=== PATIENT | female | born 1945 | race Caucasian/White ===

== ENCOUNTER 2016-09-19 11:33 | Inpatient (IN) | payer MEDICARE, OTHER ==
[~2016-09-19] VITALS: Ht 157.5 cm; Wt 56.0 kg
[~2016-09-19 11:33] MED LIST: AMIT100T2 PO; ASCO500C7 PO; ASPI1TAB2 PO; CRAN400C PO; DILT240C62 PO; HIPR1 PO; HYDR-3498 PO; LEVO500S PO; METO10TA96 PO; MULT1TAB6 PO; PSYL0.526 PO; RANI150T5 PO
[2016-09-19 11:39] VITALS: Ht 157.5 cm; Wt 56.0 kg
[2016-09-19] MEDS ORDERED: SODIUM CHLORIDE 0.9% 1L BAG IV* STA (11:56)
[2016-09-19] MEDS ORDERED: PIPER-TAZO 3.375 GM IV (PMX) 100 ML IVPB STA (11:56)
[2016-09-19] MEDS ORDERED: VANCOMYCIN 1 GM (PMX) 250 ML IVPB STA (11:56)
[2016-09-19 12:23] LABS: BASOPHIL # 0.2 10^3/ul (0.0-0.1); BASOPHILS % 0.8 % (0.0-2.0); EOSINOPHILS # 0.1 10^3/ul (0.0-0.5); EOSINOPHILS % 0.3 % (0.0-7.0); HEMATOCRIT 37.8 % (37.0-47.0); HEMOGLOBIN 12.4 g/dl (12.0-16.0); LYMPHOCYTES # 1.2 10^3/ul (0.8-2.9); MEAN CORPUSCULAR HEMOGLOBIN 28.7 pg (29.0-33.0); MEAN CORPUSCULAR HGB CONC 32.9 g/dl (32.0-37.0); MEAN CORPUSCULAR VOLUME 87.1 fl (82.0-101.0); MEAN PLATELET VOLUME 7.1 fl (7.4-10.4); MONOCYTE # 0.5 10^3/ul (0.3-0.9); MONOCYTES % 2.6 % (0.0-11.0); NEUTROPHILS % 90.3 % (39.0-77.0); PLATELET COUNT 583 10^3/UL (140-440); RED BLOOD COUNT 4.34 10^6/ul (4.20-5.40); RED CELL DISTRIBUTION WIDTH 14.6 % (11.5-14.5)
--- NOTE | 2016-09-19 12:25 | RADRPT ---
PROCEDURE: XR Chest. CLINICAL INDICATION: Possible sepsis. TECHNIQUE: Single frontal portable chest was obtained. COMPARISON: 11/28/2015.. FINDINGS: Cardiac silhouette is borderline enlarged. There are atherosclerotic calcifications in the thoracic aorta. Pulmonary vasculature appears normal. There is bibasilar subsegmental atelectasis and persistent elevation of the left hemidiaphragm. Costophrenic angles are well defined. The osseous elements appear intact. IMPRESSION: 1. Atherosclerotic calcifications in the thoracic aorta. 2. Bibasilar subsegmental atelectasis with persistent elevation of the left hemidiaphragm. RPTAT: [facility] Physician Rafal Date Time Electronically viewed and signed by Physician Rafal on 09/19/2016 12:25 /
[2016-09-19 12:30] LABS: CONDITION 1; LH ANALYZER COMMENTS 1; SUSPECT 1
[2016-09-19] MEDS ORDERED: ACETAMINOPHEN 325 MG TAB PO PRN (12:30)
[2016-09-19] MEDS ORDERED: ONDANSETRON 4 MG INJ IV PRN ×2 (12:30→16:30)
[2016-09-19 12:32] LABS: ALBUMIN 3.4 g/dl (3.3-4.9); CHLORIDE 99 mmol/L (97-110); INR 1.01; PROTIME 13.3 Sec (12.2-14.2); SODIUM 138 mmol/L (135-144)
[2016-09-19] MEDS ORDERED: ERGO500014 PO (12:32)
[2016-09-19] MEDS ORDERED: LUBI24CA7 PO (12:32)
[2016-09-19] MEDS ORDERED: ASPI-664 PO (12:33)
[2016-09-19 12:34] LABS: CREATININE 0.34 mg/dl (0.44-1.00); PARTIAL THROMBOPLASTIN TIME 37.7 Sec (25.0-35.0)
[2016-09-19] MEDS ORDERED: MAGN400O4 PO (12:34)
[2016-09-19 12:35] LABS: ALANINE AMINOTRANSFERASE 26 IU/L (13-69); ALKALINE PHOSPHATASE 145 IU/L (42-121); ANION GAP 17 (8-16); ASPARTATE AMINO TRANSFERASE 33 IU/L (15-46); BILIRUBIN,INDIRECT 0.1 mg/dl (0-1.1); BILIRUBIN,TOTAL 0.1 mg/dl (0.2-1.3); BLOOD UREA NITROGEN 9 mg/dl (7-20); CALCIUM 8.7 mg/dl (8.4-10.2); CARBON DIOXIDE 25 mmol/L (21-31); GLUCOSE 116 mg/dl (70-220); TOTAL PROTEIN 7.6 g/dl (6.1-8.1)
[2016-09-19] MEDS ORDERED: TUCKS PR (12:36)
[2016-09-19] MEDS ORDERED: HC20CR25 TOP (12:37)
[2016-09-19] MEDS ORDERED: RALO60TA12 PO (12:38)
[2016-09-19] MEDS ORDERED: GABA100C14 PO (12:38)
[2016-09-19] MEDS ORDERED: POTASSIUM CHLORIDE (SR) 20 MEQ TAB PO STA (12:55)
[2016-09-19 12:56] LABS: POTASSIUM 2.5 mmol/L (3.5-5.1); TROPONIN-I < 0.012 ng/ml (0.00-0.12)
[2016-09-19 13:35] LABS: ADD UMIC YES; URINE BILIRUBIN (Dip) NEGATIVE (NEGATIVE); URINE BLOOD (Dip) TRACE (NEGATIVE); URINE COLOR LT. YELLOW (YELLOW); URINE GLUCOSE (Dip) NEGATIVE (NEGATIVE); URINE KETONES (Dip) 40 (NEGATIVE); URINE LEUKOCYTE ESTERASE (Dip) TRACE (NEGATIVE); URINE NITRITE (Dip) NEGATIVE (NEGATIVE); URINE TOTAL PROTEIN (Dip) NEGATIVE (NEGATIVE); URINE UROBILINOGEN (Dip) 0.2 E.U./dL (0.1-1.0)
[2016-09-19 13:50] LABS: BACTERIA,URINE OCCASIONAL; URINE RBCS 0-2 /HPF (0)
--- NOTE | 2016-09-19 14:39 | ERA ---
ER Documentation Chief Complaint Date/Time DATE: 09/19/16 TIME: 14:36 Chief Complaint pressure sore draining more than usual and fever x 2 days HPI Patient is a 71-year-old female with hypertension who presents with fever. She has had fever for the past 2 days at night. It is worse today. She had a runny nose and nausea. She has been dealing with pressure ulcers to the bilateral ischial spines and her lumbar spine for the past 2-3 months and does have a wound VAC in place. The [facility]. She is being seen by Dr. Darling Santos who is her primary doctor and by Dr. Orozco who is a plastic surgeon that takes care of the wounds. ROS All systems reviewed and are negative except as per history of present illness. Medications Home Meds Active Scripts Metoclopramide Hcl* (Metoclopramide Hcl*) 10 Mg Tablet, 10 MG PO TID Y for NAUSEA, #30 TAB Prov:HODA SANTOS MD 12/04/15 Hydrocodone Bit-Acetaminophen* ([place]*) 5-325 Mg Tab, 1 TAB PO Q8 Y for SEVERE PAIN LEVEL 7-10, #40 TAB Prov:HODA SANTOS MD 12/04/15 Reported Medications Gabapentin* (Gabapentin*) 100 Mg Capsule, 100 MG PO QHS, #90 CAP 09/19/16 Raloxifene Hcl* (Evista*) 60 Mg Tablet, 60 MG PO DAILY, TAB 09/19/16 Hydrocortisone* Topical (Hydrocortisone* Topical) 2.5%-20 Gm Cream..g., 1 APPLIC TOP TID, TUB 09/19/16 Witnay Jory* (Tucks* Pads) 40 Pad Pad, 1 PAD MN APPLY Y for PRN, #40 PAD APPLY TO RECTAL AREA NEEDED 09/19/16 Magnesium Hydroxide* (Milk Of Magnesia*) 400 Mg/5 Ml Oral.susp, 15-30 ML PO QHS , ML 09/19/16 Aspirin (Low Dose Aspirin) 81 Mg Tablet.dr, 162 MG PO DAILY, #30 TAB 09/19/16 Ergocalciferol* (Drisdol* (Vitamin D2)) 50,000 Unit Capsule, 76611 UNIT PO Q7D, CAP 09/19/16 Lubiprostone* (Amitiza*) 24 Mcg Capsule, 24 MCG PO BID, #60 CAP 09/19/16 Amitriptyline Hcl* (Amitriptyline Hcl*) 100 Mg Tablet, 100 MG PO QHS, #30 TAB 11/28/15 Diltiazem Hcl* (Cartia XT*) 240 Mg Cap.sr.24h, 240 MG PO DAILY, #30 CAP 11/28/15 Methenamine Hippurate* (Hiprex*) 1 Gm Tab, 1 GM PO BID, TAB 11/28/15 Ranitidine Hcl* (Ranitidine Hcl*) 150 Mg Tablet, 150 MG PO HS, #30 TAB 11/28/15 Ascorbic Acid* (Vitamin C*) 500 Mg Capsule.sa, 500 MG PO DAILY, CAP 11/28/15 Folic Acid/Mv,Fe,Other Min (Centrum Complete Multivit Tab) 1 Each Tablet, 1 EACH PO DAILY, TAB 11/28/15 Lpesgpb-Shaymwubocsss-Iyddohrp* (Excedrin Extra Strength*) 250-250-65 Mg Tablet , 1 TAB PO Q6H Y for PAIN, TAB 11/28/15 Cranberry (Cranberry) 400 Mg Capsule, 400 MG PO DAILY, CAP 11/28/15 Psyllium Husk (Psyllium Fiber) 0.52 G Capsule, 0.52 GM PO DAILY, CAP 11/28/15 Discontinued Scripts Levofloxacin (Levofloxacin) 500 Mg/20 Ml Solution, 500 MG PO DAILY for pneumonia , #7 ML Prov:HODA SANTOS MD 12/04/15 Allergies Allergies: Coded Allergies: No Known Drug Allergies (Verified Allergy, Mild, 09/19/16) PMhx/Soc History of Surgery: Yes (HYSTERECTOMY,BIOPSIES,BLADDER SURGERY) Anesthesia Reaction: No Hx Neurological Disorder: Yes (PARAPLEGIC BLE ) Hx Respiratory Disorders: Yes (ADMITTED WITH PNEUMONIA ) Hx Cardiac Disorders: Yes (HTN,) Hx Psychiatric Problems: No Hx Miscellaneous Medical Probl: No Hx Alcohol Use: No Hx Substance Use: No Hx Tobacco Use: No Smoking Status: Never smoker FmHx Adopted and does not know her family history Physical Exam Vitals Vital Signs Date Time Temp Pulse Resp B/P Pulse Ox O2 Delivery O2 Flow Rate FiO2 09/19/16 11:39 97.8 124 20 124/69 98 Physical Exam Const: Mild distress Head: Atraumatic Eyes: Normal Conjunctiva ENT: Normal External Ears, Nose and Mouth. Neck: Full range of motion..~ No meningismus. Resp: Clear to auscultation bilaterally Cardio: Regular rate and rhythm, no murmurs Abd: Soft, non tender, non distended. Normal bowel sounds Skin: Patient has a wound VAC in place for her pressure ulcers. Back: No midline or flank tenderness Ext: No cyanosis, or edema Neur: Awake and alert Psych: Normal Mood and Affect Result Diagram: 09/19/16 1200 09/19/16 1200 Results 24 hrs Laboratory Tests Test 09/19/16 12:00 09/19/16 13:15 Activated Partial Thromboplast Time 37.7Sec Alanine Aminotransferase (ALT/SGPT) 26IU/L Albumin 3.4g/dl Albumin/Globulin Ratio 0.80 Alkaline Phosphatase 145IU/L Anion Gap 17 Aspartate Amino Transf (AST/SGOT) 33IU/L Basophils # 0.210^3/ul Basophils % 0.8% Blood Morphology Comment Blood Urea Nitrogen 9mg/dl Calcium Level 8.7mg/dl Carbon Dioxide Level 25mmol/L Chloride Level 99mmol/L Creatinine 0.34mg/dl Direct Bilirubin 0.00mg/dl Eosinophils # 0.110^3/ul Eosinophils % 0.3% Globulin 4.20g/dl Glucose Level 116mg/dl Hematocrit 37.8% Hemoglobin 12.4g/dl INR International Normalized Ratio 1.01 Indirect Bilirubin 0.1mg/dl Lactic Acid Level 1.5mmol/L Lymphocytes # 1.210^3/ul Lymphocytes % 6.0% Mean Corpuscular Hemoglobin 28.7pg Mean Corpuscular Hemoglobin Concent 32.9g/dl Mean Corpuscular Volume 87.1fl Mean Platelet Volume 7.1fl Monocytes # 0.510^3/ul Monocytes % 2.6% Neutrophils # 18.010^3/ul Neutrophils % 90.3% Nucleated Red Blood Cells # 0.010^3/ul Nucleated Red Blood Cells % 0.0/100WBC Platelet Count 75250^3/UL Potassium Level 2.5mmol/L Prothrombin Time 13.3Sec Prothrombin Time Ratio 1.0 Red Blood Count 4.3410^6/ul Red Cell Distribution Width 14.6% Sodium Level 138mmol/L Total Bilirubin 0.1mg/dl Total Protein 7.6g/dl Troponin I < 0.012ng/ml White Blood Count 20.010^3/ul Urine Bacteria OCCASIONAL Urine Bilirubin NEGATIVE Urine Clarity CLEAR Urine Color LT. YELLOW Urine Epithelial Cells OCCASIONAL Urine Glucose NEGATIVE% Urine Hemoglobin TRACE Urine Ketones 40 Urine Leukocyte Esterase TRACE Urine Microscopic RBC 0-2/HPF Urine Microscopic WBC 2-5/HPF Urine Nitrite NEGATIVE Urine Specific Inez <=1.005 Urine Total Protein NEGATIVE Urine Urobilinogen 0.2 E.U./dL Urine pH 6.0 Current Medications Medications (Trade) Dose Ordered Sig/Tom Route PRN Reason Start Time Stop Time Status Last Admin Dose Admin Sodium Chloride 1740 ml 1,740 ml BOLUS OVER 2 HOURS STAT IV* 09/19/16 11:56 09/19/16 11:57 DC 09/19/16 12:20 Vancomycin HCl 250 ml @ 125 mls/hr ONCE STAT IVPB 09/19/16 11:56 09/19/16 13:55 DC 09/19/16 13:29 Piperacillin Sod/ Tazobactam Sod (Zosyn 3.375gm/ 100 ml (Pmx)) 100 ml @ 200 mls/hr ONCE STAT IVPB 09/19/16 11:56 09/19/16 12:25 DC 09/19/16 12:19 Ondansetron HCl (Zofran Inj) 4 mg BRIDGE ORDER PRN IV NAUSEA AND/OR VOMITING 09/19/16 12:30 09/20/16 12:29 Acetaminophen (Tylenol Tab) 650 mg ER BRIDGE PRN PO MILD PAIN/FEVER 09/19/16 12:30 09/20/16 12:29 Potassium Chloride (Klor-Con 20) 40 meq ONCE STAT PO 09/19/16 12:55 09/19/16 12:57 DC 09/19/16 13:28 Procedures/MDM EKG read by me: Rate/Rhythm: Sinus tachycardia Intervals: Normal Impression: Sinus tachycardia without evidence of ischemia PROCEDURE: XR Chest. CLINICAL INDICATION: Possible sepsis. TECHNIQUE: Single frontal portable chest was obtained. COMPARISON: 11/28/2015.. FINDINGS: Cardiac silhouette is borderline enlarged. There are atherosclerotic calcifications in the thoracic aorta. Pulmonary vasculature appears normal. There is bibasilar subsegmental atelectasis and persistent elevation of the left hemidiaphragm. Costophrenic angles are well defined. The osseous elements appear intact. IMPRESSION: 1. Atherosclerotic calcifications in the thoracic aorta. 2. Bibasilar subsegmental atelectasis with persistent elevation of the left hemidiaphragm. RPTAT: [facility] Physician Rafal Date Time Electronically viewed and signed by Dwayne Euceda Physician on 09/19/2016 12: 25 Admit MDM: Patient's infectious symptoms have not stabilized and the patient is at risk of rapid decompensation. The patient will be admitted for careful hydration, antibiotic therapy, and infectious source control. Severe Sepsis criteria: Infectious source: Wound infection End organ damage indicated by: No end organ damage at this time Sepsis Management: Time of recognition of sepsis: Upon arrival Within 3 hours of recognition: Blood cultures x 2 before broad-spectrum antibiotics: Yes 30 ml/kg NS bolus Completed Initial lactate 1.5 Repeat lactate pending Time of recognition of septic shock: No septic shock Septic Shock Assessment: Any lactic acid > 4.0 No Persistent hypotension (SBP < 90 or 40 mmHg drop, MAP < 65) despite 30 mL/kg IV fluid bolus No Volume Re-assessment for Septic Shock (post 30 ml/kg bolus): No septic shock at this time Persistent Hypotension Treatment: Comfort care No Central line Not Required Vasopressor started Not required I considered further perfusion assessment with CVP measurement, SCVO2, bedside ultrasound volume assessment, passive leg raise, trial of further fluid bolus. And proceeded with 30 ml/kg fluid bolus of NSS, broad spectrum antibiotics, and admission. Patient has hypokalemia and was given potassium by mouth to replete. Accepting Care Team Current data and ongoing care discussed. Admitting Physician: Dr. Marin who is covering for Dr. Darling Santos Guest Request Runner(s): None Outstanding Data: Culture results and repeat lactic acid Critical Care: Critical care time 35 minutes excluding all billable procedures Emergent fluid management while maintaining close respiratory support. Provision of immediate and broad-spectrum antibiotic therapy. Simultaneous assessment for possible sources in order to direct targeted therapy. Consideration for invasive and chemical support to prevent cardiopulmonary collapse. Departure Diagnosis: Primary Impression: Sepsis Qualified Code: A41.9 - Sepsis, due to unspecified organism Additional Impression: Hypokalemia Condition: Serious JASMYN SHERIDAN MD Sep 19, 2016 14:39
[2016-09-19 14:43] VITALS: BP 123/67; PULSE 95; RESP 18
[2016-09-19] MEDS ORDERED: VANCOMYCIN IV PER PHARMACY XX STA (16:11)
[2016-09-19] MEDS ORDERED: ASA/ACETAMINOPHEN/CAFF TAB PO PRN (16:30)
[2016-09-19] MEDS: ERGOCALCIFEROL 50,000 UNIT CAP PO SCH (16:30)
[2016-09-19] MEDS ORDERED: HYDROCODONE/APAP (5/325) TAB PO PRN (16:30)
[2016-09-19] MEDS ORDERED: METOCLOPRAMIDE 10 MG TAB PO PRN (16:30)
[2016-09-19] MEDS ORDERED: NACL 0.9% 3 ML SYG IV SCH (16:30)
--- NOTE | 2016-09-19 17:29 | CONS ---
DATE OF ADMISSION: 09/19/2016 DATE OF CONSULTATION: 09/19/2016 TYPE OF CONSULTATION: Infectious disease. REASON FOR CONSULTATION: Antibiotic management. HISTORY OF PRESENT ILLNESS: Jessica Rico is an unfortunate 71-year-old female with numerous problems who comes in with draining of wounds and fever for 2 days. Her past problems include: 1. Hypertension. 2. Pressure ulcers to bilateral ischial spines and also lumbar spine for the past 2 to 3 months. S he has a wound VAC in place. She is seen at the [facility] [place] for care. Her other p roblems include: 3. Status post hysterectomy. 4. History of bladder surgery with what looks like an Cristela pouch present. 5. Paraplegia. 6. Pneumonia. On admission, the patient was on Levaquin, given by Dr. David Santos. Her white count was 20,000; H and H of 12.4 and 37.8, platelet count 583,000. BUN and creatinine is 9/0.34, potassium 2.5, whic h is quite low. Alkaline phosphatase was elevated at 145. Her total protein 7.6, albumin 3.4, reve rse AG ratio of 0.8. Chest x-ray shows atherosclerotic calcifications of the aorta and bibasilar dimas bsegmental atelectasis with persistent elevation of the left hemidiaphragm. The patient was started on Zosyn 3.375 grams IV piggyback q.8h. and vancomycin. She received 1 dose of vancomycin. Her BU N and creatinine was 9/0.34, as mentioned. Her urine is negative for nitrite, trace leukocyte nicolas ase, 2 to 5 white cells per high-power field. PAST MEDICAL HISTORY AND OPERATIONS: As outlined. FAMILY HISTORY: Noncontributory. SOCIAL HISTORY: She does not smoke, drink, or abuse drugs. ALLERGIES: NONE TO PENICILLIN, SULFA, OR FOODS. MEDICATIONS: Per chart. REVIEW OF SYSTEMS: As per HPI. PHYSICAL EXAMINATION: GENERAL: The patient is a well-developed, chronically ill-appearing, cachectic female who is alert, responsive, in no acute distress. VITAL SIGNS: Stable. She is afebrile. SKIN: Without generalized rash. She has pressure ulcers on her sacrum and a wound VAC on the left side of the sacrum. HEENT: Within normal limits. NECK: Supple. LYMPH NODES: None palpable. CHEST: Decreased breath sounds at the bases. HEART: Without murmur or gallop. ABDOMEN: Soft, nontender without organosplenomegaly or masses. EXTREMITIES: Without cyanosis, clubbing, or edema. RECTAL AND GENITAL: Deferred. NEUROLOGIC: The patient has functional paraplegia. ANCILLARY LABORATORY DATA: White count of 20,000; H and H of 20.4 and 37.8, as previously mentioned . A chest x-ray showed bibasilar segmental atelectasis and persistent elevation of left hemidiaphra gm. IMPRESSION AND PLAN: The patient has pressure sores, wounds. We would benefit from culturing of th ose wounds, but that can only be done when the wound VAC is changed. Blood cultures are pending. U rine is pending. C. diff is pending. We will continue her on vancomycin and Zosyn. The vancomycin was given once. I am going to order it per pharmacy. Dictated By: ANA LUISA BELTRÁN MD, JD/NICKIE Conf#: [id number] DID#: [id number] CC: GIANNI FRAZIER MD;*End*
[2016-09-19] MEDS ORDERED: VANCOMYCIN IV PER PHARMACY XX SCH (17:30)
[2016-09-19] MEDS: NS + KCL 20 MEQ 1,000 ML IV SCH (17:37)
[2016-09-19] MEDS: PIPER-TAZO 3.375 GM IV (PMX) 100 ML IVPB SCH (17:57)
--- NOTE | 2016-09-19 18:54 | QN ---
Documentation Comment [id number] GIANNI FRAZIER MD Sep 19, 2016 18:54
[2016-09-19 20:00] VITALS: BP 111/62; PULSE 89; RESP 18
--- NOTE | 2016-09-19 20:01 | HP ---
DATE OF ADMISSION: 09/19/2016 HISTORY OF PRESENT ILLNESS: Jessica Rico is a 71-year-old female with history of muscular dystrophy. She has weakness of both upper and lower extremities, has multiple decubitus presented to this hospital with multiple decubitus and is being admitted for further management. PAST MEDICAL HISTORY: Please review the old chart. Briefly, he has a history of status post mechanical fall in the past, history of left hip fracture and status post open reduction internal fixation, history of hypokalemia, history of UTI, history of pneumonia, hypertension, hypothyroidism, muscular dystrophy. ALLERGY HISTORY: NEGATIVE. FAMILY HISTORY: Negative. SOCIAL HISTORY: Negative. MEDICATION HISTORY: Patient at home is on: 1. Tylenol. 2. Aspirin. 3. Amitriptyline. 4. Ascorbic acid. 5. vit . 6. Diltiazem. 7. Ergocalciferol. 8. Folic acid. 9. Gabapentin. 10. Hydrocortisone 11. Amitiza. 12. Milk of magnesia. 13. Hapadex. 14. Avista. 15. Ranitidine. REVIEW OF SYSTEMS HEENT: Unremarkable. RESPIRATORY: Unremarkable. CARDIOVASCULAR: Unremarkable. ABDOMEN: Unremarkable. EXTREMITIES: Muscular dystrophy and also multiple decubitus. GENERAL: Pale-looking female, awake, alert. VITAL SIGNS: Stable, pulse 90, blood pressure 120/67. HEAD: Atraumatic, normocephalic. Pupils equal, reactive to light. NECK: Supple. No JVD. LUNGS: Clear. CARDIOVASCULAR: S1, S2 normal. ABDOMEN: Soft, nontender. Bowel sounds positive. EXTREMITIES: No cyanosis, clubbing, edema. CENTRAL NERVOUS SYSTEM: The patient is awake, alert, moving upper and lower extremities with muscular dystrophy and weakness. SKIN: The patient has multiple decubitus in the right hip area and the sacral area also has a wound VAC noted. LABORATORY DATA: WBC 20.0, hematocrit 37.8, platelet count of 523, potassium 2.5. The patient had chest x-ray, atherosclerotic calcification, bibasilar subsegmental atelectasis. EKG will be reviewed. IMPRESSION: 1. Multiple decubitus. 2. Sepsis. 3. Leukocytosis. 4. Hypokalemia. 5. History of hypertension. PLAN: To continue home medication, wound care, antibiotic. Patient will have the wound care consultation and surgical consultation. Dictated By: GIANNI SNOWDEN/NICKIE Conf#: [id number] DID#: [id number] MTDD
[2016-09-19] MEDS: GABAPENTIN 100 MG CAP PO SCH (20:49)
[2016-09-19] MEDS: HYDROCODONE/APAP (5/325) TAB PO PRN (20:50)
[2016-09-19] MEDS: AMITRIPTYLINE 50 MG TAB PO SCH (20:50)
[2016-09-19] MEDS: LUBIPROSTONE 24 MCG CAP PO SCH (20:51)
[2016-09-19] MEDS: RANITIDINE 150 MG TAB PO SCH (20:51)
[2016-09-19] MEDS: METHENAMINE 1 GM TAB PO SCH (20:52)
[2016-09-19] MEDS: HYDROCORTISONE 2.5% 20 GM CR TOP SCH (20:53)
[2016-09-19] MEDS: ACETAMINOPHEN 325 MG TAB PO PRN (23:17)
[2016-09-19] MEDS: VANCOMYCIN 750 MG in SOD CHLORIDE 0.9% 150 ML IVPB SCH (23:29)
[2016-09-20] MEDS: PIPER-TAZO 3.375 GM IV (PMX) 100 ML IVPB SCH ×3 (02:01→17:45)
[2016-09-20 08:11] VITALS: BP 99/62; PULSE 76; RESP 20
[2016-09-20] MEDS: NS + KCL 20 MEQ 1,000 ML IV SCH (08:51)
[2016-09-20] MEDS ORDERED: INFLUENZA VIRUS VACCINE 0.5 ML (DISPENSING) IM* ONE (09:00)
[2016-09-20] MEDS: ASCORBIC ACID 500 MG TAB PO SCH (09:26)
[2016-09-20] MEDS: METHENAMINE 1 GM TAB PO SCH ×2 (09:26→21:24)
[2016-09-20] MEDS: LUBIPROSTONE 24 MCG CAP PO SCH ×2 (09:26→21:21)
[2016-09-20] MEDS: RALOXIFENE 60 MG TAB PO SCH (09:26)
[2016-09-20] MEDS: DILTIAZEM (CD) 240 MG CAP PO SCH (09:26)
[2016-09-20] MEDS: ASPIRIN (EC) 81 MG TAB PO SCH (09:27)
[2016-09-20] MEDS: ENOXAPARIN 30 MG/0.3 ML SYG SC SCH (09:42)
[2016-09-20] MEDS: HYDROCORTISONE 2.5% 20 GM CR TOP SCH ×3 (09:47→21:26)
[2016-09-20 09:48] VITALS: BP 115/62; PULSE 91
[2016-09-20] MEDS: ACETAMINOPHEN 325 MG TAB PO PRN (13:15)
[2016-09-20] MEDS: VANCOMYCIN 750 MG in SOD CHLORIDE 0.9% 150 ML IVPB SCH (13:15)
--- NOTE | 2016-09-20 13:48 | PN ---
Date/Time of Note Date/Time of Note DATE: 09/20/16 TIME: 13:45 Assessment/Plan VTE Prophylaxis VTE Prophylaxis Intervention: other Lines/Catheters IV Catheter Type (from Nrs): Peripheral IV Urinary Cath still in place: No Assessment/Plan Chief Complaint/Hosp Course IMPRESSION: 1. Multiple decubitus. 2. Sepsis. 3. Leukocytosis. 4. Hypokalemia. 5. History of hypertension. 6 multiple decubitus plan antibiotic wound care Problems: Subjective 24 Hr Interval Summary Respiratory: no complaints Cardiovascular: no complaints Gastrointestinal: no complaints Exam/Review of Systems Vital Signs Vitals Vital Signs Date Time Temp Pulse Resp B/P Pulse Ox O2 Delivery O2 Flow Rate FiO2 09/20/16 09:48 91 115/62 09/20/16 08:11 98.3 20 96 Room Air Intake and Output 09/19/16 09/19/16 09/20/16 15:00 23:00 07:00 Intake Total 100 ml 730 ml Balance 100 ml 730 ml Exam Neck: supple Respiratory: clear to auscultation Cardiovascular: regular rate and rhythm Gastrointestinal: soft Musculoskeletal: nl extremities to inspection Skin: other (decubitus) Results Result Diagram: 09/19/16 1200 09/19/16 1200 Results 24 hrs Laboratory Tests Test 09/19/16 15:45 Lactic Acid Level 0.9 Medications Medications Current Medications Amitriptyline HCl (Elavil) 100 mg QHS PO Last administered on 09/19/16at 20:50 ; Admin Dose 100 MG; Start 09/19/16 at 21:00 Ascorbic Acid (Vitamin C) 500 mg DAILY PO Last administered on 09/20/16at 09:26 ; Admin Dose 500 MG; Start 09/20/16 at 09:00 Aspirin (Halfprin) 162 mg DAILY PO Last administered on 09/20/16at 09:27; Admin Dose 162 MG; Start 09/20/16 at 09:00 Acetaminophen/ Aspirin/Caffeine (Excedrin) 1 tab Q6H PRN PO PAIN; Start at 16:30 Diltiazem HCl (Cardizem Cd) 240 mg DAILY PO Last administered on 09/20/16at 09: 26; Admin Dose 240 MG; Start 09/20/16 at 09:00 Ergocalciferol (Drisdol) 50,000 unit Q7D PO ; Start 09/19/16 at 16:30 Gabapentin (Neurontin) 100 mg QHS PO Last administered on 09/19/16 20:49; Admin Dose 100 MG; Start 09/19/16 at 21:00 Acetaminophen/ Hydrocodone Bitart ([place] (5/325)) 1 tab Q8 PRN PO SEVERE PAIN LEVEL 7-10 Last administered on 09/19/16 20:50; Admin Dose 1 TAB; Start 09/19 at 16:30 Hydrocortisone (Hydrocortisone 2.5% Cr) 1 applic TID TOP Last administered on 09/20/16 13:16; Admin Dose 1 APPLIC; Start 09/19/16 at 21:00 Lubiprostone (Amitiza) 24 mcg BID PO Last administered on 09/20/16 09:26; Admin Dose 24 MCG; Start 09/19/16 at 21:00 Methenamine (Hiprex) 1 gm BID PO Last administered on 09/20/16 09:26; Admin Dose 1 GM; Start 09/19/16 at 21:00 Metoclopramide HCl (Reglan) 10 mg TID PRN PO NAUSEA; Start 09/19/16 at 16:30 Raloxifene HCl (Evista) 60 mg DAILY PO Last administered on 09/20/16 09:26; Admin Dose 60 MG; Start 09/20/16 at 09:00 Ranitidine HCl 150 mg 150 mg HS PO Last administered on 09/19/16at 20:51; Admin Dose 150 MG; Start 09/19/16 at 21:00 Potassium Chloride/Sodium Chloride (NS-KCl 20 Meq) 1,000 ml @ 60 mls/hr [id number] IV Last administered on 09/19/16at 17:37; Admin Dose 60 MLS/HR; Start 09/19/16 at 16:11 Ondansetron HCl (Zofran Inj) 4 mg Q6H PRN IV NAUSEA AND/OR VOMITING; Start at 16:30 Acetaminophen (Tylenol Tab) 650 mg Q6H PRN PO PAIN LEVEL 1-3 OR FEVER Last administered on 09/20/16 13:15; Admin Dose 650 MG; Start 09/19/16 at 16:30 Acetaminophen/ Hydrocodone Bitart (Corning (5/325)) 1 tab Q6H PRN PO MODERATE PAIN LEVEL 4-6; Start 09/19/16 at 16:30 Enoxaparin Sodium 30 mg 30 mg DAILY SC Last administered on 09/20/16at 09:42; Admin Dose 30 MG; Start 09/20/16 at 09:00 Piperacillin Sod/ Tazobactam Sod 100 ml @ 25 mls/hr TID@02,10,18 IVPB Last administered on 09/20/16at 09:46; Admin Dose 25 MLS/HR; Start 09/19/16 at 18:00 Vancomycin HCl/ Sodium Chloride (Vancocin/NS) 150 ml @ 75 mls/hr Q12H IVPB Last administered on 09/20/16at 13:15; Admin Dose 75 MLS/HR; Start 09/20/16 at 00:00 Miscellaneous Information (*Rx Drug Level Order Reminder*) 1 ONCE ONCE XX ; Start 09/20/16 at 23:00; Stop 09/20/16 at 23:01 GIANNI FRAZIER MD Sep 20, 2016 13:48
[2016-09-20 15:13] LABS: BASOPHIL # 0.1 10^3/ul (0.0-0.1); BASOPHILS % 0.7 % (0.0-2.0); EOSINOPHILS # 0.2 10^3/ul (0.0-0.5); EOSINOPHILS % 1.2 % (0.0-7.0); HEMATOCRIT 31.3 % (37.0-47.0); HEMOGLOBIN 10.2 g/dl (12.0-16.0); LYMPHOCYTES % 7.4 % (15.0-51.0); MEAN CORPUSCULAR HEMOGLOBIN 28.3 pg (29.0-33.0); MEAN CORPUSCULAR HGB CONC 32.6 g/dl (32.0-37.0); MEAN CORPUSCULAR VOLUME 86.6 fl (82.0-101.0); MEAN PLATELET VOLUME 6.8 fl (7.4-10.4); MONOCYTE # 0.5 10^3/ul (0.3-0.9); MONOCYTES % 3.6 % (0.0-11.0); NEUTROPHIL # 11.3 10^3/ul (1.6-7.5); NEUTROPHILS % 87.1 % (39.0-77.0); PLATELET COUNT 550 10^3/UL (140-440); RED BLOOD COUNT 3.61 10^6/ul (4.20-5.40); RED CELL DISTRIBUTION WIDTH 14.6 % (11.5-14.5)
[2016-09-20 15:14] LABS: CONDITION 1
[2016-09-20 15:15] LABS: LH ANALYZER COMMENTS 1
[2016-09-20 15:21] LABS: CREATININE 0.33 mg/dl (0.44-1.00)
[2016-09-20 15:22] LABS: CALCIUM 7.5 mg/dl (8.4-10.2)
[2016-09-20 15:26] LABS: POTASSIUM 2.7 mmol/L (3.5-5.1)
[2016-09-20] MEDS ORDERED: POTASSIUM CHLORIDE 250 ML IVPB ONE (17:00)
--- NOTE | 2016-09-20 19:09 | PN ---
DATE: 09/20/2016 INFECTIOUS DISEASE PROGRESS NOTE SUBJECTIVE: No changes overnight. The patient is awake, looks comfortable, no fevers. WBC 13, platelets 550, neutrophils 87.1. BUN 8, creatinine 0.33. MICROBIOLOGY: Blood cultures are negative since admission. Urine culture growing enterococcus spec ies. ANTIMICROBIALS: The patient is on IV 1. Vancomycin. 2. Zosyn. PHYSICAL EXAMINATION: GENERAL: Fragile, elderly woman who is lying comfortably in bed. HEENT: Head atraumatic, normocephalic. Sclerae anicteric. Buccal mucosa dry. NECK: Supple, trachea midline. CHEST: Rise symmetrical. Breath sounds diminished to bases. HEART: S1, S2. ABDOMEN: Soft, bowel tones present. EXTREMITIES: Without cyanosis. SKIN: With multiple unstageable pressure ulcers on her lower back and sacrum. ASSESSMENT: 1. Systemic inflammatory response syndrome with leukocytosis present on admission secondary to #2 a nd #3. 2. Unstageable infected wounds, status post lower back wound debridement with wound VAC application . 3. Urinary tract infection. 4. History of bladder surgery with urostomy. 5. Paraplegia. PLAN: The patient remains clinically stable. White blood cell count tracing down. Continue presen t care. Await final cultures. Local wound care per surgery and nursing staff. Dictated By: PAOLO HEAD MEDIA ANALYST for ANA LUISA NAVARRO/NTS Conf#: [id number] DID#: [id number]
[2016-09-20 20:00] VITALS: BP 151/81; PULSE 105
[2016-09-20] MEDS: RANITIDINE 150 MG TAB PO SCH (21:23)
[2016-09-20] MEDS: AMITRIPTYLINE 50 MG TAB PO SCH (21:23)
[2016-09-20] MEDS: GABAPENTIN 100 MG CAP PO SCH (21:25)
[2016-09-20] MEDS: POTASSIUM CHLORIDE (SR) 10 MEQ TAB PO SCH (21:26)
--- NOTE | 2016-09-20 22:59 | CONS ---
DATE OF ADMISSION: 09/19/2016 DATE OF CONSULTATION: 09/20/2016 TYPE OF CONSULTATION: Surgical CHIEF COMPLAINT: 1. Multiple decubitus ulcers. 2. Paraplegia. HISTORY OF PRESENT ILLNESS: Ms. Jessica Rico is a 71-year-old female with muscular dystrophy who is p ractically paraplegic due to significant weakness of lower extremities, more so than the upper extre mities. She has multiple decubitus ulcers and presents with fevers up to 103 without nausea, vomiti ng, chest pain, or shortness of breath. No dysuria. No cough, no seizure, no blood per mouth or re ctum. No abdominal pain. Her workup identified significant leukocytosis at a white count of 20. She was admitted and surgica l consult is obtained for further evaluation. PAST MEDICAL HISTORY: 1. Muscular dystrophy. 2. Significant weakness of the lower extremities, more than upper extremities. 3. Hypertension. 4. History of pneumonia. 5. Hypothyroidism. 6. Urinary tract infection history. 7. Hyperkalemia. 8. Multiple decubitus ulcers with necrotic tissue. 9. Anemia. 10. Thrombocytosis. 11. Significant hyperkalemia. 12. Sepsis. PAST SURGICAL HISTORY: 1. Left hip fracture status post open reduction internal fixation. 2. Partial hysterectomy. 3. Urinary diversion. MEDICATIONS: As per MAR. ALLERGIES: NONE. SOCIAL HISTORY: No current alcohol, drugs, or tobacco. FAMILY HISTORY: Noncontributory. REVIEW OF SYSTEMS: As per HPI. A 12-point review of system negative unless addressed above. PHYSICAL EXAMINATION: VITAL SIGNS: Temperature is 98.3, pulse 76, blood pressure 99/62, saturating 96% on room air. GENERAL: No acute distress, comfortable, pleasant. HEENT: Pupils equal, reactive. No scleral icterus. Mucous membranes are moist. NECK: Supple, no JVD. PULMONARY: Normal respiratory effort. No wheezing. CARDIAC: S1, S2 present. ABDOMEN: Soft, nontender, no rebound, no guarding. Left lower quadrant urinary fistula. EXTREMITIES: No edema. SKIN: No rashes, no jaundice; however, left and right ischial decubitus ulcerations. Right with ne crotic tissue and abscess. Sacrococcygeal decubitus ulceration with necrotic tissue as well. VASCULAR: Capillary refill is 2 seconds. NEUROLOGIC: Alert, oriented, moves upper extremities grossly; however, unable to move the lower ext remities. LABORATORY AND RADIOGRAPHIC: As per chart and HPI. ASSESSMENT AND PLAN: Ms. Jessica Rico is a 71-year-old female with multiple significant comorbidities . 1. Sepsis, probably secondary to infected right ischial/buttock abscess and decubitus ulceration pl us urinary tract infection. a. IV antibiotics. b. Will need debridement and I and D of right buttock abscess and necrotic wound. c. Off load. d. Local care. e. Nutrition optimization. f. Vitamin C. g. Plastics following. 2. Multiple decubitus ulcerations. a. Continue offloading, optimizing nutrition, vitamin C and local care. b. We will consider colostomy for stool diversion. 3. Muscular dystrophy. Continue medical management, offloading, and nutrition optimization. 4. Hypertension. Continue diet and medication control. 5. Anemia without evidence of acute blood loss. Continue close observation. 6. Significant hypokalemia, please replete. 7. Hypothyroidism. Continue replacing hormone. Thank you very much for consulting me in this patient's case. Dictated By: CAIO FRANCIS/NICKIE Conf#: [id number] DID#: [id number]
--- NOTE | 2016-09-20 23:04 | OPR ---
DATE OF OPERATION: 09/20/2016 PREOPERATIVE DIAGNOSIS: Right buttock necrotic wound with abscess. POSTOPERATIVE DIAGNOSIS: Right buttock/ischial abscess with necrotic skin, subcutaneous tissue and fascia. OPERATION PERFORMED: 1. Excisional debridement of skin, subcutaneous tissue, and fascia of right buttock/ischial decubit us ulceration, 8 x 6 cm. 2. Incision and drainage of right buttock/ischial abscess. SURGEON: Caio Putnam MD PHOTOLETTERING MACHINE OPERATOR: None. ANESTHESIA: None. COMPLICATIONS: None. SPECIMEN: None. ESTIMATED BLOOD LOSS: 10 mL INDICATION: Ms. Jessica Rico is a 71-year-old female with multiple comorbidities with multiple decubi tus ulceration and necrotic and abscessed right buttock/ischial ulceration. After a full discussion of her risks, benefits, and alternatives she is agreeable to proceeding with surgery. DISPOSITION: The patient tolerated procedure well. PROCEDURE NOTE: The patient was placed in lateral decubitus and all pressure points were well padde d. Time out was performed. Using scalpel and scissors, the abscess cavity was entered and pus was drained. Using scissors, the necrotic tissue was excised to healthier edges. Wound was irrigated a nd packed with Kerlix and dry dressing was applied. The patient may need further debridement. Dictated By: CAIO FRANCIS/NICKIE Conf#: [id number] DID#: [id number]
[2016-09-21] MEDS: VANCOMYCIN 1 GM in NS 250 ML IVPB SCH ×2 (00:09→12:10)
[2016-09-21] MEDS: NS + KCL 20 MEQ 1,000 ML IV SCH ×3 (01:31→20:21)
[2016-09-21] MEDS: PIPER-TAZO 3.375 GM IV (PMX) 100 ML IVPB SCH ×3 (02:04→17:39)
[2016-09-21 06:22] LABS: POTASSIUM 3.3 mmol/L (3.5-5.1)
[2016-09-21 06:25] LABS: CREATININE 0.31 mg/dl (0.44-1.00)
[2016-09-21 06:26] LABS: CALCIUM 7.6 mg/dl (8.4-10.2)
[2016-09-21] MEDS: HYDROCODONE/APAP (5/325) TAB PO PRN ×2 (07:32→17:35)
[2016-09-21 08:04] VITALS: BP 95/51; PULSE 85; RESP 18
[2016-09-21] MEDS: DILTIAZEM (CD) 240 MG CAP PO SCH (08:06)
[2016-09-21] MEDS: ASCORBIC ACID 500 MG TAB PO SCH (08:52)
[2016-09-21] MEDS: LUBIPROSTONE 24 MCG CAP PO SCH ×2 (08:52→20:22)
[2016-09-21] MEDS: ASPIRIN (EC) 81 MG TAB PO SCH (08:52)
[2016-09-21] MEDS: POTASSIUM CHLORIDE (SR) 10 MEQ TAB PO SCH ×2 (08:52→17:36)
[2016-09-21] MEDS: RALOXIFENE 60 MG TAB PO SCH (08:52)
[2016-09-21] MEDS: METHENAMINE 1 GM TAB PO SCH ×2 (08:52→17:36)
[2016-09-21] MEDS: HYDROCORTISONE 2.5% 20 GM CR TOP SCH ×3 (08:53→20:23)
[2016-09-21] MEDS: ERGOCALCIFEROL 50,000 UNIT CAP PO SCH (09:00)
[2016-09-21] MEDS: ENOXAPARIN 30 MG/0.3 ML SYG SC SCH (09:36)
--- NOTE | 2016-09-21 12:21 | CONS ---
Date/Time of Note Date/Time of Note DATE: 09/21/16 TIME: 12:20 Consult Date/Type/Reason Admit Date/Time Sep 19, 2016 at 12:20 Initial Consult Date Type of Consultation: ID Subjective no acute changes, looks comfortable, afebrile Objective Vital Signs Date Time Temp Pulse Resp B/P Pulse Ox O2 Delivery O2 Flow Rate FiO2 09/21/16 08:04 99.0 85 18 95/51 92 Room Air Intake and Output 09/20/16 09/20/16 09/21/16 15:00 23:00 07:00 Intake Total 100 ml 1470 ml 710 ml Output Total 500 ml 1600 ml Balance 100 ml 970 ml -890 ml Results/Medications Result Diagram: 09/20/16 1445 09/21/16 0500 Results 24 hrs Laboratory Tests Test 09/20/16 14:45 09/20/16 23:25 09/21/16 05:00 Anion Gap 14 13 Basophils # 0.1 Basophils % 0.7 Blood Morphology Comment Blood Urea Nitrogen 8 8 Calcium Level 7.5 L 7.6 L Carbon Dioxide Level 23 22 Chloride Level 105 108 Creatinine 0.33 L 0.31 L Eosinophils # 0.2 Eosinophils % 1.2 Glucose Level 89 94 Hematocrit 31.3 L Hemoglobin 10.2 L Lymphocytes # 1.0 Lymphocytes % 7.4 L Mean Corpuscular Hemoglobin 28.3 L Mean Corpuscular Hemoglobin Concent 32.6 Mean Corpuscular Volume 86.6 Mean Platelet Volume 6.8 L Monocytes # 0.5 Monocytes % 3.6 Neutrophils # 11.3 H Neutrophils % 87.1 H Nucleated Red Blood Cells # 0.0 Nucleated Red Blood Cells % 0.0 Platelet Count 550 H Potassium Level 2.7 *L 3.3 L Red Blood Count 3.61 L Red Cell Distribution Width 14.6 H Sodium Level 139 140 White Blood Count 13.0 #H Vancomycin Level Trough 8.2 L Medications Current Medications Amitriptyline HCl (Elavil) 100 mg QHS PO Last administered on 09/20/16at 21:23 ; Admin Dose 100 MG; Start 09/19/16 at 21:00 Ascorbic Acid (Vitamin C) 500 mg DAILY PO Last administered on 09/21/16at 08:52 ; Admin Dose 500 MG; Start 09/20/16 at 09:00 Aspirin (Halfprin) 162 mg DAILY PO Last administered on 09/21/16 08:52; Admin Dose 162 MG; Start 09/20/16 at 09:00 Acetaminophen/ Aspirin/Caffeine (Excedrin) 1 tab Q6H PRN PO PAIN; Start at 16:30 Diltiazem HCl (Cardizem Cd) 240 mg DAILY PO Last administered on 09/20/16 09: 26; Admin Dose 240 MG; Start 09/20/16 at 09:00 Ergocalciferol (Drisdol) 50,000 unit Q7D PO Last administered on 09/21/16 09: 00; Admin Dose 50,000 UNIT; Start 09/19/16 at 16:30 Gabapentin (Neurontin) 100 mg QHS PO Last administered on 09/20/16 21:25; Admin Dose 100 MG; Start 09/19/16 at 21:00 Acetaminophen/ Hydrocodone Bitart ([place] (5/325)) 1 tab Q8 PRN PO SEVERE PAIN LEVEL 7-10 Last administered on 09/21/16 07:32; Admin Dose 1 TAB; Start 09/19 at 16:30 Hydrocortisone (Hydrocortisone 2.5% Cr) 1 applic TID TOP Last administered on 09/21/16 08:53; Admin Dose 1 APPLIC; Start 09/19/16 at 21:00 Lubiprostone (Amitiza) 24 mcg BID PO Last administered on 09/21/16 08:52; Admin Dose 24 MCG; Start 09/19/16 at 21:00 Methenamine (Hiprex) 1 gm BID PO Last administered on 09/21/16 08:52; Admin Dose 1 GM; Start 09/19/16 at 21:00 Metoclopramide HCl (Reglan) 10 mg TID PRN PO NAUSEA; Start 09/19/16 at 16:30 Raloxifene HCl (Evista) 60 mg DAILY PO Last administered on 09/21/16 08:52; Admin Dose 60 MG; Start 09/20/16 at 09:00 Ranitidine HCl 150 mg 150 mg HS PO Last administered on 09/20/16 21:23; Admin Dose 150 MG; Start 09/19/16 at 21:00 Potassium Chloride/Sodium Chloride (NS-KCl 20 Meq) 1,000 ml @ 60 mls/hr [id number] IV Last administered on 09/19/16at 17:37; Admin Dose 60 MLS/HR; Start 09/19/16 at 16:11 Ondansetron HCl (Zofran Inj) 4 mg Q6H PRN IV NAUSEA AND/OR VOMITING; Start at 16:30 Acetaminophen (Tylenol Tab) 650 mg Q6H PRN PO PAIN LEVEL 1-3 OR FEVER Last administered on 09/20/16at 13:15; Admin Dose 650 MG; Start 09/19/16 at 16:30 Acetaminophen/ Hydrocodone Bitart ([place] (5/325)) 1 tab Q6H PRN PO MODERATE PAIN LEVEL 4-6; Start 09/19/16 at 16:30 Enoxaparin Sodium 30 mg 30 mg DAILY SC Last administered on 09/21/16at 09:36; Admin Dose 30 MG; Start 09/20/16 at 09:00 Piperacillin Sod/ Tazobactam Sod 100 ml @ 25 mls/hr TID@02,10,18 IVPB Last administered on 09/21/16at 10:52; Admin Dose 25 MLS/HR; Start 09/19/16 at 18:00 Vancomycin HCl (Vancocin) 250 ml @ 125 mls/hr Q12H IVPB Last administered on 09/21/16at 12:10; Admin Dose 125 MLS/HR; Start 09/21/16 at 00:00 Miscellaneous Information (*Rx Drug Level Order Reminder*) VANCO TROUGH @ 1, 100 ON ... ONCE ONCE XX ; Start 09/22/16 at 11:00; Stop 09/22/16 at 11:01 Potassium Chloride 20 meq 20 meq BID PO ; Start 09/21/16 at 21:00 Potassium Chloride/Sodium Chloride (KCl/NS) 110 ml @ 55 mls/hr ONCE ONCE IVPB ; Start 09/21/16 at 13:00; Stop 09/21/16 at 14:59 Assessment/Plan Chief Complaint/Hosp Course MICROBIOLOGY: Blood cultures are negative since admission. Urine culture growing enterococcus species. Stool negative for C dif ANTIMICROBIALS: 1. Vancomycin. 2. Zosyn. PHYSICAL EXAMINATION: GENERAL: Fragile, elderly woman who is lying comfortably in bed. HEENT: Head atraumatic, normocephalic. Sclerae anicteric. Buccal mucosa dry. NECK: Supple, trachea midline. CHEST: Rise symmetrical. Breath sounds diminished to bases. HEART: S1, S2. ABDOMEN: Soft, bowel tones present. EXTREMITIES: Without cyanosis. SKIN: With multiple unstageable pressure ulcers on her lower back and sacrum. ASSESSMENT: 1. Systemic inflammatory response syndrome with leukocytosis present on admission secondary to #2 and #3. 2. Unstageable infected wounds, status post lower back wound debridement with wound VAC application. 3. Urinary tract infection. 4. History of bladder surgery with urostomy. 5. Paraplegia. PLAN: Clinically stable. White blood cell count tracing down. Continue present care, abx. Local wound care per surgery and nursing staff. staff Problems: PAOLO HEAD NP Sep 21, 2016 12:21
[2016-09-21] MEDS ORDERED: POTASSIUM CHLORIDE 20 MEQ in SOD CHLORIDE 0.9% 100 ML IVPB ONE (13:00)
--- NOTE | 2016-09-21 14:07 | PN ---
Date/Time of Note Date/Time of Note DATE: 09/21/16 TIME: 14:04 Assessment/Plan VTE Prophylaxis VTE Prophylaxis Intervention: SCD's Lines/Catheters IV Catheter Type (from Nrsg): Saline Lock Urinary Cath still in place: No Assessment/Plan Assessment/Plan 1. Systemic inflammatory response syndrome with leukocytosis present on admission secondary to #2 and #3. 2. Unstageable infected wounds, status post lower back wound debridement with wound VAC application. 3. Urinary tract infection. 4. History of bladder surgery with urostomy. 5. Paraplegia Plan: continue current care, KCL replacement IVF with KCL IV abx, ID following pain control General surgery following, will need I & D of wound Subjective 24 Hr Interval Summary Free Text/Dictation doing ok, comfortable, Exam/Review of Systems Vital Signs Vitals Vital Signs Date Time Temp Pulse Resp B/P Pulse Ox O2 Delivery O2 Flow Rate FiO2 09/21/16 08:04 99.0 85 18 95/51 92 Room Air Intake and Output 09/20/16 09/20/16 09/21/16 15:00 23:00 07:00 Intake Total 100 ml 1470 ml 710 ml Output Total 500 ml 1600 ml Balance 100 ml 970 ml -890 ml Exam GENERAL: Fragile, elderly woman who is lying comfortably in bed. HEENT: Head atraumatic, normocephalic. Sclerae anicteric. Buccal mucosa dry. NECK: Supple, trachea midline. CHEST: Rise symmetrical. Breath sounds diminished to bases. HEART: S1, S2. ABDOMEN: Soft, bowel tones present. EXTREMITIES: Without cyanosis. SKIN: With multiple unstageable pressure ulcers on her lower back and sacrum. Results Result Diagram: 09/20/16 1445 09/21/16 0500 Results 24 hrs Laboratory Tests Test 09/20/16 14:45 09/20/16 23:25 09/21/16 05:00 Anion Gap 14 13 Basophils # 0.1 Basophils % 0.7 Blood Morphology Comment Blood Urea Nitrogen 8 8 Calcium Level 7.5 L 7.6 L Carbon Dioxide Level 23 22 Chloride Level 105 108 Creatinine 0.33 L 0.31 L Eosinophils # 0.2 Eosinophils % 1.2 Glucose Level 89 94 Hematocrit 31.3 L Hemoglobin 10.2 L Lymphocytes # 1.0 Lymphocytes % 7.4 L Mean Corpuscular Hemoglobin 28.3 L Mean Corpuscular Hemoglobin Concent 32.6 Mean Corpuscular Volume 86.6 Mean Platelet Volume 6.8 L Monocytes # 0.5 Monocytes % 3.6 Neutrophils # 11.3 H Neutrophils % 87.1 H Nucleated Red Blood Cells # 0.0 Nucleated Red Blood Cells % 0.0 Platelet Count 550 H Potassium Level 2.7 *L 3.3 L Red Blood Count 3.61 L Red Cell Distribution Width 14.6 H Sodium Level 139 140 White Blood Count 13.0 #H Vancomycin Level Trough 8.2 L Medications Medications Current Medications Amitriptyline HCl (Elavil) 100 mg QHS PO Last administered on 09/20/16 21:23 ; Admin Dose 100 MG; Start 09/19/16 at 21:00 Ascorbic Acid (Vitamin C) 500 mg DAILY PO Last administered on 09/21/16 08:52 ; Admin Dose 500 MG; Start 09/20/16 at 09:00 Aspirin (Halfprin) 162 mg DAILY PO Last administered on 09/21/16 08:52; Admin Dose 162 MG; Start 09/20/16 at 09:00 Acetaminophen/ Aspirin/Caffeine (Excedrin) 1 tab Q6H PRN PO PAIN; Start at 16:30 Diltiazem HCl (Cardizem Cd) 240 mg DAILY PO Last administered on 09/20/16 09: 26; Admin Dose 240 MG; Start 09/20/16 at 09:00 Ergocalciferol (Drisdol) 50,000 unit Q7D PO Last administered on 09/21/16 09: 00; Admin Dose 50,000 UNIT; Start 09/19/16 at 16:30 Gabapentin (Neurontin) 100 mg QHS PO Last administered on 09/20/16 21:25; Admin Dose 100 MG; Start 09/19/16 at 21:00 Acetaminophen/ Hydrocodone Bitart ([place] (5/325)) 1 tab Q8 PRN PO SEVERE PAIN LEVEL 7-10 Last administered on 09/21/16 07:32; Admin Dose 1 TAB; Start 09/19 at 16:30 Hydrocortisone (Hydrocortisone 2.5% Cr) 1 applic TID TOP Last administered on 09/21/16 13:27; Admin Dose 1 APPLIC; Start 09/19/16 at 21:00 Lubiprostone (Amitiza) 24 mcg BID PO Last administered on 09/21/16at 08:52; Admin Dose 24 MCG; Start 09/19/16 at 21:00 Methenamine (Hiprex) 1 gm BID PO Last administered on 09/21/16at 08:52; Admin Dose 1 GM; Start 09/19/16 at 21:00 Metoclopramide HCl (Reglan) 10 mg TID PRN PO NAUSEA; Start 09/19/16 at 16:30 Raloxifene HCl (Evista) 60 mg DAILY PO Last administered on 09/21/16 08:52; Admin Dose 60 MG; Start 09/20/16 at 09:00 Ranitidine HCl 150 mg 150 mg HS PO Last administered on 09/20/16at 21:23; Admin Dose 150 MG; Start 09/19/16 at 21:00 Potassium Chloride/Sodium Chloride (NS-KCl 20 Meq) 1,000 ml @ 60 mls/hr [id number] IV Last administered on 09/19/16at 17:37; Admin Dose 60 MLS/HR; Start 09/19/16 at 16:11 Ondansetron HCl (Zofran Inj) 4 mg Q6H PRN IV NAUSEA AND/OR VOMITING; Start at 16:30 Acetaminophen (Tylenol Tab) 650 mg Q6H PRN PO PAIN LEVEL 1-3 OR FEVER Last administered on 09/20/16at 13:15; Admin Dose 650 MG; Start 09/19/16 at 16:30 Acetaminophen/ Hydrocodone Bitart ([place] (5/325)) 1 tab Q6H PRN PO MODERATE PAIN LEVEL 4-6; Start 09/19/16 at 16:30 Enoxaparin Sodium 30 mg 30 mg DAILY SC Last administered on 09/21/16at 09:36; Admin Dose 30 MG; Start 09/20/16 at 09:00 Piperacillin Sod/ Tazobactam Sod 100 ml @ 25 mls/hr TID@02,10,18 IVPB Last administered on 09/21/16 10:52; Admin Dose 25 MLS/HR; Start 09/19/16 at 18:00 Vancomycin HCl (Vancocin) 250 ml @ 125 mls/hr Q12H IVPB Last administered on 09/21/16at 12:10; Admin Dose 125 MLS/HR; Start 09/21/16 at 00:00 Miscellaneous Information (*Rx Drug Level Order Reminder*) VANCO TROUGH @ 1, 100 ON ... ONCE ONCE XX ; Start 09/22/16 at 11:00; Stop 09/22/16 at 11:01 Potassium Chloride 20 meq 20 meq BID PO ; Start 09/21/16 at 21:00 Potassium Chloride/Sodium Chloride (KCl/NS) 110 ml @ 55 mls/hr ONCE ONCE IVPB ; Start 09/21/16 at 13:00; Stop 09/21/16 at 14:59 HODA PARSON MD Sep 21, 2016 14:07
--- NOTE | 2016-09-21 14:56 | PN ---
Date/Time of Note Date/Time of Note DATE: 09/21/16 TIME: 14:51 Assessment/Plan Lines/Catheters IV C[facility]ter Type (from [facility] Saline Lock [place] in Place (from [facility]): No Assessment/Plan Chief Complaint/Hosp Course 1. Sepsis, probably secondary to infected right ischial/buttock abscess and decubitus ulceration plus urinary tract infection. s/p I&D and Debridement right buttock ulcer 09/20. Improving - IV antibiotics. -Off load. -Local care. -Nutrition optimization. -Vitamin C. -g. Plastics following. 2. Multiple decubitus ulcerations. -Continue offloading, optimizing nutrition, vitamin C and local care. -Will consider colostomy for stool diversion. 3. Muscular dystrophy. Continue medical management, offloading, and nutrition optimization. 4. Hypertension. Continue diet and medication control. 5. Anemia without evidence of acute blood loss. Continue close observation. 6. Significant hypokalemia, please replete. 7. Hypothyroidism. Continue replacing hormone. Thank you Problems: Subjective 24 Hr Interval Summary s/p Excisional debridement and I&D or right buttock abscess/necrotic wound . No f/c. No n/v. No cp/sob. No cough. No serrano/dizzy/visual or neuro changes. No dysuria. Exam/Review of Systems Vital Signs Vitals Vital Signs Date Time Temp Pulse Resp B/P Pulse Ox O2 Delivery O2 Flow Rate FiO2 09/21/16 08:04 99.0 85 18 95/51 92 Room Air Intake and Output 09/20/16 09/20/16 09/21/16 15:00 23:00 07:00 Intake Total 100 ml 1470 ml 710 ml Output Total 500 ml 1600 ml Balance 100 ml 970 ml -890 ml Exam Free Text/Dictation GENERAL: No acute distress, comfortable, pleasant. HEENT: Pupils equal, reactive. No scleral icterus. Mucous membranes are moist. NECK: Supple, no JVD. PULMONARY: Normal respiratory effort. No wheezing. CARDIAC: S1, S2 present. ABDOMEN: Soft, nontender, no rebound, no guarding. Left lower quadrant urinary fistula. EXTREMITIES: No edema. SKIN: No rashes, no jaundice; however, left and right ischial decubitus ulcerations. Right with necrotic tissue and abscess. Sacrococcygeal decubitus ulceration with necrotic tissue as well. VASCULAR: Capillary refill is 2 seconds. NEUROLOGIC: Alert, oriented, moves upper extremities grossly; however, unable to move the lower extremities. Results Result Diagram: 09/20/16 1445 09/21/16 0500 CAIO FINK MD Sep 21, 2016 14:55
[2016-09-21] MEDS: GABAPENTIN 100 MG CAP PO SCH (17:36)
[2016-09-21] MEDS: AMITRIPTYLINE 50 MG TAB PO SCH (17:36)
[2016-09-21 20:00] VITALS: BP 110/61; RESP 18
[2016-09-21] MEDS: RANITIDINE 150 MG TAB PO SCH (20:22)
[2016-09-21] MEDS ORDERED: POTASSIUM CHLORIDE (SR) 10 MEQ TAB PO SCH (21:00)
[2016-09-22] MEDS: VANCOMYCIN 1 GM in NS 250 ML IVPB SCH ×2 (00:37→12:14)
[2016-09-22] MEDS: PIPER-TAZO 3.375 GM IV (PMX) 100 ML IVPB SCH ×3 (02:34→17:51)
[2016-09-22 07:49] VITALS: BP 109/64; PULSE 94; RESP 20
[2016-09-22] MEDS: RALOXIFENE 60 MG TAB PO SCH (08:33)
[2016-09-22] MEDS: LUBIPROSTONE 24 MCG CAP PO SCH ×2 (08:33→21:52)
[2016-09-22] MEDS: POTASSIUM CHLORIDE (SR) 10 MEQ TAB PO SCH ×2 (08:33→17:52)
[2016-09-22] MEDS: ASPIRIN (EC) 81 MG TAB PO SCH (08:33)
[2016-09-22] MEDS: ASCORBIC ACID 500 MG TAB PO SCH (08:34)
[2016-09-22] MEDS: METHENAMINE 1 GM TAB PO SCH ×2 (08:34→17:51)
[2016-09-22] MEDS: DILTIAZEM (CD) 240 MG CAP PO SCH (08:34)
[2016-09-22] MEDS: ENOXAPARIN 30 MG/0.3 ML SYG SC SCH (08:41)
[2016-09-22] MEDS: HYDROCORTISONE 2.5% 20 GM CR TOP SCH ×3 (08:41→21:53)
[2016-09-22] MEDS: HYDROCODONE/APAP (5/325) TAB PO PRN (11:10)
--- NOTE | 2016-09-22 11:44 | PN ---
Date/Time of Note Date/Time of Note DATE: 09/22/16 TIME: 11:42 Assessment/Plan VTE Prophylaxis VTE Prophylaxis Intervention: LMWH Lines/Catheters IV Catheter Type (from Nrsg): Peripheral IV Urinary Cath still in place: No Assessment/Plan Assessment/Plan 1. Systemic inflammatory response syndrome with leukocytosis present on admission secondary to #2 and #3. 2. Unstageable infected wounds, status post lower back wound debridement with wound VAC application. 3. Urinary tract infection. 4. History of bladder surgery with urostomy. 5. Paraplegia Plan: wound care IV abx, ID following pain control lovenox for DVT prophylaxis General surgery following, s/p I & D of wound, wound cx grew MRSA Subjective 24 Hr Interval Summary Free Text/Dictation wound cx grew MRSA, pain controlled Exam/Review of Systems Vital Signs Vitals Vital Signs Date Time Temp Pulse Resp B/P Pulse Ox O2 Delivery O2 Flow Rate FiO2 09/22/16 07:49 98.9 94 20 109/64 93 Room Air Intake and Output 09/21/16 09/21/16 09/22/16 15:00 23:00 07:00 Intake Total 200 ml 1420 ml Output Total 500 ml Balance 200 ml 920 ml Results Result Diagram: 09/20/16 1445 09/21/16 0500 Medications Medications Current Medications Ascorbic Acid (Vitamin C) 500 mg DAILY PO Last administered on 09/22/16at 08:34 ; Admin Dose 500 MG; Start 09/20/16 at 09:00 Aspirin (Halfprin) 162 mg DAILY PO Last administered on 09/22/16at 08:33; Admin Dose 162 MG; Start 09/20/16 at 09:00 Acetaminophen/ Aspirin/Caffeine (Excedrin) 1 tab Q6H PRN PO PAIN; Start at 16:30 Diltiazem HCl (Cardizem Cd) 240 mg DAILY PO Last administered on 09/20/16at 09: 26; Admin Dose 240 MG; Start 09/20/16 at 09:00 Ergocalciferol (Drisdol) 50,000 unit Q7D PO Last administered on 09/21/16at 09: 00; Admin Dose 50,000 UNIT; Start 09/19/16 at 16:30 Acetaminophen/ Hydrocodone Bitart ([place] (5/325)) 1 tab Q8 PRN PO SEVERE PAIN LEVEL 7-10 Last administered on 09/22/16 11:10; Admin Dose 1 TAB; Start 09/19 at 16:30 Hydrocortisone (Hydrocortisone 2.5% Cr) 1 applic TID TOP Last administered on 09/22/16 08:41; Admin Dose 1 APPLIC; Start 09/19/16 at 21:00 Lubiprostone (Amitiza) 24 mcg BID PO Last administered on 09/22/16 08:33; Admin Dose 24 MCG; Start 09/19/16 at 21:00 Metoclopramide HCl (Reglan) 10 mg TID PRN PO NAUSEA; Start 09/19/16 at 16:30 Raloxifene HCl (Evista) 60 mg DAILY PO Last administered on 09/22/16 08:33; Admin Dose 60 MG; Start 09/20/16 at 09:00 Ranitidine HCl 150 mg 150 mg HS PO Last administered on 09/21/16 20:22; Admin Dose 150 MG; Start 09/19/16 at 21:00 Potassium Chloride/Sodium Chloride (NS-KCl 20 Meq) 1,000 ml @ 60 mls/hr [id number] IV Last administered on 09/21/16 20:21; Admin Dose 60 MLS/HR; Start 09/19/16 at 16:11 Ondansetron HCl (Zofran Inj) 4 mg Q6H PRN IV NAUSEA AND/OR VOMITING; Start at 16:30 Acetaminophen (Tylenol Tab) 650 mg Q6H PRN PO PAIN LEVEL 1-3 OR FEVER Last administered on 09/20/16 13:15; Admin Dose 650 MG; Start 09/19/16 at 16:30 Acetaminophen/ Hydrocodone Bitart ([place] (5/325)) 1 tab Q6H PRN PO MODERATE PAIN LEVEL 4-6; Start 09/19/16 at 16:30 Enoxaparin Sodium 30 mg 30 mg DAILY SC Last administered on 09/22/16 08:41; Admin Dose 30 MG; Start 09/20/16 at 09:00 Piperacillin Sod/ Tazobactam Sod 100 ml @ 25 mls/hr TID@02,10,18 IVPB Last administered on 09/22/16 10:09; Admin Dose 25 MLS/HR; Start 09/19/16 at 18:00 Vancomycin HCl (Vancocin) 250 ml @ 125 mls/hr Q12H IVPB Last administered on 09/22/16at 00:37; Admin Dose 125 MLS/HR; Start 09/21/16 at 00:00 Amitriptyline HCl (Elavil) 100 mg DAILY@18 PO Last administered on 09/21/16at 17:36; Admin Dose 100 MG; Start 09/21/16 at 18:00 Gabapentin (Neurontin) 100 mg DAILY@18 PO Last administered on 09/21/16at 17:36 ; Admin Dose 100 MG; Start 09/21/16 at 18:00 Methenamine (Hiprex) 1 gm BID@09,18 PO Last administered on 09/22/16at 08:34; Admin Dose 1 GM; Start 09/21/16 at 18:00 Potassium Chloride (Klor-Con 10) 20 meq BID@09,18 PO Last administered on 09/22at 08:33; Admin Dose 20 MEQ; Start 09/21/16 at 18:00 Sodium Hypochlorite (Dakin'S ([place] 1/40%)) 1 applic DAILY IRR ; Start at 12:00 HODA PARSON MD Sep 22, 2016 11:44
[2016-09-22] MEDS: SODIUM HYPOCHLORITE 1/40% 1L IRRIG IRR SCH (12:14)
--- NOTE | 2016-09-22 14:54 | CONS ---
Date/Time of Note Date/Time of Note DATE: 09/22/16 TIME: 14:53 Consult Date/Type/Reason Admit Date/Time Sep 19, 2016 at 12:20 Type of Consultation: ID Subjective alert, looks comfortable, afebrile Objective Vital Signs Date Time Temp Pulse Resp B/P Pulse Ox O2 Delivery O2 Flow Rate FiO2 09/22/16 07:49 98.9 94 20 109/64 93 Room Air Intake and Output 09/21/16 09/21/16 09/22/16 15:00 23:00 07:00 Intake Total 200 ml 1420 ml Output Total 500 ml Balance 200 ml 920 ml Results/Medications Result Diagram: 09/20/16 1445 09/21/16 0500 Results 24 hrs Laboratory Tests Test 09/22/16 10:54 Vancomycin Level Trough 10.3 Medications Current Medications Ascorbic Acid (Vitamin C) 500 mg DAILY PO Last administered on 09/22/16at 08:34 ; Admin Dose 500 MG; Start 09/20/16 at 09:00 Aspirin (Halfprin) 162 mg DAILY PO Last administered on 09/22/16at 08:33; Admin Dose 162 MG; Start 09/20/16 at 09:00 Acetaminophen/ Aspirin/Caffeine (Excedrin) 1 tab Q6H PRN PO PAIN; Start at 16:30 Diltiazem HCl (Cardizem Cd) 240 mg DAILY PO Last administered on 09/20/16at 09: 26; Admin Dose 240 MG; Start 09/20/16 at 09:00 Ergocalciferol (Drisdol) 50,000 unit Q7D PO Last administered on 09/21/16at 09: 00; Admin Dose 50,000 UNIT; Start 09/19/16 at 16:30 Acetaminophen/ Hydrocodone Bitart ([place] (5/325)) 1 tab Q8 PRN PO SEVERE PAIN LEVEL 7-10 Last administered on 09/22/16 11:10; Admin Dose 1 TAB; Start 09/19 at 16:30 Hydrocortisone (Hydrocortisone 2.5% Cr) 1 applic TID TOP Last administered on 09/22/16 08:41; Admin Dose 1 APPLIC; Start 09/19/16 at 21:00 Lubiprostone (Amitiza) 24 mcg BID PO Last administered on 09/22/16 08:33; Admin Dose 24 MCG; Start 09/19/16 at 21:00 Metoclopramide HCl (Reglan) 10 mg TID PRN PO NAUSEA; Start 09/19/16 at 16:30 Raloxifene HCl (Evista) 60 mg DAILY PO Last administered on 09/22/16 08:33; Admin Dose 60 MG; Start 09/20/16 at 09:00 Ranitidine HCl 150 mg 150 mg HS PO Last administered on 09/21/16at 20:22; Admin Dose 150 MG; Start 09/19/16 at 21:00 Potassium Chloride/Sodium Chloride (NS-KCl 20 Meq) 1,000 ml @ 60 mls/hr [id number] IV Last administered on 09/21/16at 20:21; Admin Dose 60 MLS/HR; Start 09/19/16 at 16:11 Ondansetron HCl (Zofran Inj) 4 mg Q6H PRN IV NAUSEA AND/OR VOMITING; Start at 16:30 Acetaminophen (Tylenol Tab) 650 mg Q6H PRN PO PAIN LEVEL 1-3 OR FEVER Last administered on 09/20/16at 13:15; Admin Dose 650 MG; Start 09/19/16 at 16:30 Acetaminophen/ Hydrocodone Bitart ([place] (5/325)) 1 tab Q6H PRN PO MODERATE PAIN LEVEL 4-6; Start 09/19/16 at 16:30 Enoxaparin Sodium 30 mg 30 mg DAILY SC Last administered on 09/22/16at 08:41; Admin Dose 30 MG; Start 09/20/16 at 09:00 Piperacillin Sod/ Tazobactam Sod 100 ml @ 25 mls/hr TID@02,10,18 IVPB Last administered on 09/22/16at 10:09; Admin Dose 25 MLS/HR; Start 09/19/16 at 18:00 Vancomycin HCl (Vancocin) 250 ml @ 125 mls/hr Q12H IVPB Last administered on 09/22/16 12:14; Admin Dose 125 MLS/HR; Start 09/21/16 at 00:00 Amitriptyline HCl (Elavil) 100 mg DAILY@18 PO Last administered on 09/21/16 17:36; Admin Dose 100 MG; Start 09/21/16 at 18:00 Gabapentin (Neurontin) 100 mg DAILY@18 PO Last administered on 09/21/16at 17:36 ; Admin Dose 100 MG; Start 09/21/16 at 18:00 Methenamine (Hiprex) 1 gm BID@,18 PO Last administered on 09/22/16at 08:34; Admin Dose 1 GM; Start 09/21/16 at 18:00 Potassium Chloride (Klor-Con 10) 20 meq BID@,18 PO Last administered on 09/22at 08:33; Admin Dose 20 MEQ; Start 09/21/16 at 18:00 Sodium Hypochlorite (Dakin'S (Dilute 1/40%)) 1 applic DAILY IRR Last administered on 09/22/16at 12:14; Admin Dose 1 APPLIC; Start 09/22/16 at 12:00 Assessment/Plan Chief Complaint/Hosp Course Micro: wound cx + MRES/Enterococcus/E coli/Corynebact ANTIMICROBIALS: 1. Vancomycin. 2. Zosyn. PHYSICAL EXAMINATION: GENERAL: Fragile, elderly woman who is lying comfortably in bed. HEENT: Head atraumatic, normocephalic. Sclerae anicteric. Buccal mucosa dry. NECK: Supple, trachea midline. CHEST: Rise symmetrical. Breath sounds diminished to bases. HEART: S1, S2. ABDOMEN: Soft, bowel tones present. EXTREMITIES: Without cyanosis. SKIN: With multiple unstageable pressure ulcers on her lower back and sacrum. ASSESSMENT: 1. Systemic inflammatory response syndrome with leukocytosis present on admission secondary to #2 and #3. 2. Unstageable infected wounds, status post lower back wound debridement with wound VAC application. 3. Urinary tract infection==> Enterococcus. 4. History of bladder surgery with urostomy. 5. Paraplegia. PLAN: Clinically stable. White blood cell count tracing down. Continue present care, abx. Local wound care per surgery and nursing staff. staff Problems: PAOLO HEAD NP Sep 22, 2016 14:54
--- NOTE | 2016-09-22 15:07 | PN ---
Date/Time of Note Date/Time of Note DATE: 09/22/16 TIME: 15:06 Assessment/Plan Lines/Catheters IV Catheter Type (from [facility]): Peripheral IV Chowdary in Place (from [facility]): No Assessment/Plan Chief Complaint/Hosp Course 1. Sepsis, probably secondary to infected right ischial/buttock abscess and decubitus ulceration plus urinary tract infection. s/p I&D and Debridement right buttock ulcer 09/20. Improving - IV antibiotics. -Off load. -Local care. -Nutrition optimization. -Vitamin C. -g. Plastics following. 2. Multiple decubitus ulcerations. -Continue offloading, optimizing nutrition, vitamin C and local care. -Will consider colostomy for stool diversion. 3. Muscular dystrophy. Continue medical management, offloading, and nutrition optimization. 4. Hypertension. Continue diet and medication control. 5. Anemia without evidence of acute blood loss. Continue close observation. 6. Significant hypokalemia, please replete. 7. Hypothyroidism. Continue replacing hormone. Thank you Problems: Subjective 24 Hr Interval Summary s/p Excisional debridement and I&D or right buttock abscess/necrotic wound . No f/c. No n/v. No cp/sob. No cough. No serrano/dizzy/visual or neuro changes. No dysuria. Exam/Review of Systems Vital Signs Vitals Vital Signs Date Time Temp Pulse Resp B/P Pulse Ox O2 Delivery O2 Flow Rate FiO2 09/22/16 07:49 98.9 94 20 109/64 93 Room Air Intake and Output 09/21/16 09/21/16 09/22/16 15:00 23:00 07:00 Intake Total 200 ml 1420 ml Output Total 500 ml Balance 200 ml 920 ml Exam Free Text/Dictation GENERAL: No acute distress, comfortable, pleasant. HEENT: Pupils equal, reactive. No scleral icterus. Mucous membranes are moist. NECK: Supple, no JVD. PULMONARY: Normal respiratory effort. No wheezing. CARDIAC: S1, S2 present. ABDOMEN: Soft, nontender, no rebound, no guarding. Left lower quadrant urinary fistula. EXTREMITIES: No edema. SKIN: No rashes, no jaundice; however, left and right ischial decubitus ulcerations. Right with necrotic tissue and abscess. Sacrococcygeal decubitus ulceration with necrotic tissue as well. VASCULAR: Capillary refill is 2 seconds. NEUROLOGIC: Alert, oriented, moves upper extremities grossly; however, unable to move the lower extremities. Results Result Diagram: 09/20/16 1445 09/21/16 0500 CAIO FINK MD Sep 22, 2016 15:07
[2016-09-22] MEDS: GABAPENTIN 100 MG CAP PO SCH (17:51)
[2016-09-22] MEDS: AMITRIPTYLINE 50 MG TAB PO SCH (18:37)
[2016-09-22] MEDS: RANITIDINE 150 MG TAB PO SCH (21:52)
[2016-09-22 22:00] VITALS: BP 115/78; PULSE 101; RESP 18
[2016-09-23] MEDS: VANCOMYCIN 1 GM in NS 250 ML IVPB SCH (00:25)
[2016-09-23] MEDS: PIPER-TAZO 3.375 GM IV (PMX) 100 ML IVPB SCH ×3 (03:18→18:48)
[2016-09-23] MEDS: NS + KCL 20 MEQ 1,000 ML IV SCH ×3 (03:31→20:11)
[2016-09-23 05:22] LABS: ALBUMIN 2.5 g/dl (3.3-4.9); POTASSIUM 4.2 mmol/L (3.5-5.1)
[2016-09-23 05:24] LABS: CREATININE 0.37 mg/dl (0.44-1.00)
[2016-09-23 05:25] LABS: ALBUMIN/GLOBULIN RATIO 0.73; CALCIUM 8.2 mg/dl (8.4-10.2); INR 1.01; PROTIME 13.3 Sec (12.2-14.2); TOTAL PROTEIN 5.9 g/dl (6.1-8.1)
[2016-09-23 05:26] LABS: PARTIAL THROMBOPLASTIN TIME 26.6 Sec (25.0-35.0)
[2016-09-23 08:00] VITALS: BP 108/67; PULSE 94; RESP 16
[2016-09-23] MEDS: ASPIRIN (EC) 81 MG TAB PO SCH (10:02)
[2016-09-23] MEDS: RALOXIFENE 60 MG TAB PO SCH (10:03)
[2016-09-23] MEDS: LUBIPROSTONE 24 MCG CAP PO SCH ×2 (10:03→21:15)
[2016-09-23] MEDS: DILTIAZEM (CD) 240 MG CAP PO SCH (10:03)
[2016-09-23] MEDS: ASCORBIC ACID 500 MG TAB PO SCH (10:04)
[2016-09-23] MEDS: SODIUM HYPOCHLORITE 1/40% 1L IRRIG IRR SCH (10:07)
[2016-09-23] MEDS: METHENAMINE 1 GM TAB PO SCH ×2 (10:35→18:45)
[2016-09-23] MEDS: POTASSIUM CHLORIDE (SR) 10 MEQ TAB PO SCH ×2 (10:36→18:46)
[2016-09-23] MEDS: HYDROCORTISONE 2.5% 20 GM CR TOP SCH ×2 (10:36→13:18)
[2016-09-23] MEDS: ENOXAPARIN 30 MG/0.3 ML SYG SC SCH (12:00)
[2016-09-23] MEDS: VANCOMYCIN 1.25 GM in SOD CHLORIDE 0.9% 250 ML IVPB SCH (13:18)
--- NOTE | 2016-09-23 15:04 | CONS ---
Date/Time of Note Date/Time of Note DATE: 09/23/16 TIME: 15:03 Consult Date/Type/Reason Admit Date/Time Sep 19, 2016 at 12:20 Type of Consultation: ID Subjective no acute changes, alert, feels ok, no fevers, nad Objective Vital Signs Date Time Temp Pulse Resp B/P Pulse Ox O2 Delivery O2 Flow Rate FiO2 09/23/16 08:00 98.9 94 16 108/67 97 Room Air Intake and Output 09/22/16 09/22/16 09/23/16 15:00 23:00 07:00 Intake Total 870 ml 2380 ml 1940 ml Output Total 0 ml 850 ml Balance 870 ml 2380 ml 1090 ml Results/Medications Result Diagram: 09/20/16 1445 09/23/16 0455 Results 24 hrs Laboratory Tests Test 09/23/16 04:55 Activated Partial Thromboplast Time 26.6 Alanine Aminotransferase (ALT/SGPT) 33 Albumin 2.5 L Albumin/Globulin Ratio 0.73 Alkaline Phosphatase 75 Anion Gap 11 Aspartate Amino Transf (AST/SGOT) 23 Blood Urea Nitrogen 6 L Calcium Level 8.2 L Carbon Dioxide Level 25 Chloride Level 111 H Creatinine 0.37 L Direct Bilirubin 0.00 Globulin 3.40 H Glucose Level 88 INR International Normalized Ratio 1.01 Indirect Bilirubin 0.0 Potassium Level 4.2 Prothrombin Time 13.3 Prothrombin Time Ratio 1.0 Sodium Level 143 Total Bilirubin 0.0 L Total Protein 5.9 L Medications Current Medications Ascorbic Acid (Vitamin C) 500 mg DAILY PO Last administered on 09/23/16at 10:04 ; Admin Dose 500 MG; Start 09/20/16 at 09:00 Aspirin (Halfprin) 162 mg DAILY PO Last administered on 09/23/16at 10:02; Admin Dose 162 MG; Start 09/20/16 at 09:00 Acetaminophen/ Aspirin/Caffeine (Excedrin) 1 tab Q6H PRN PO PAIN; Start at 16:30 Diltiazem HCl (Cardizem Cd) 240 mg DAILY PO Last administered on 09/23/16at 10: 03; Admin Dose 240 MG; Start 09/20/16 at 09:00 Ergocalciferol (Drisdol) 50,000 unit Q7D PO Last administered on 09/21/16at 09: 00; Admin Dose 50,000 UNIT; Start 09/19/16 at 16:30 Acetaminophen/ Hydrocodone Bitart ([place] (5/325)) 1 tab Q8 PRN PO SEVERE PAIN LEVEL 7-10 Last administered on 09/22/16 11:10; Admin Dose 1 TAB; Start 09/19 at 16:30 Hydrocortisone (Hydrocortisone 2.5% Cr) 1 applic TID TOP Last administered on 09/23/16 13:18; Admin Dose 1 APPLIC; Start 09/19/16 at 21:00 Lubiprostone (Amitiza) 24 mcg BID PO Last administered on 09/23/16 10:03; Admin Dose 24 MCG; Start 09/19/16 at 21:00 Metoclopramide HCl (Reglan) 10 mg TID PRN PO NAUSEA; Start 09/19/16 at 16:30 Raloxifene HCl (Evista) 60 mg DAILY PO Last administered on 09/23/16 10:03; Admin Dose 60 MG; Start 09/20/16 at 09:00 Ranitidine HCl 150 mg 150 mg HS PO Last administered on 09/22/16 21:52; Admin Dose 150 MG; Start 09/19/16 at 21:00 Potassium Chloride/Sodium Chloride (NS-KCl 20 Meq) 1,000 ml @ 60 mls/hr [id number] IV Last administered on 09/23/16 04:40; Admin Dose 60 MLS/HR; Start 09/19/16 at 16:11 Ondansetron HCl (Zofran Inj) 4 mg Q6H PRN IV NAUSEA AND/OR VOMITING; Start at 16:30 Acetaminophen (Tylenol Tab) 650 mg Q6H PRN PO PAIN LEVEL 1-3 OR FEVER Last administered on 09/20/16 13:15; Admin Dose 650 MG; Start 09/19/16 at 16:30 Acetaminophen/ Hydrocodone Bitart ([place] (5/325)) 1 tab Q6H PRN PO MODERATE PAIN LEVEL 4-6; Start 09/19/16 at 16:30 Enoxaparin Sodium 30 mg 30 mg DAILY SC Last administered on 09/23/16 12:00; Admin Dose 30 MG; Start 09/20/16 at 09:00 Piperacillin Sod/ Tazobactam Sod (Zosyn 3.375gm/ 100 ml (Pmx)) 100 ml @ 25 mls/ hr TID@02,10,18 IVPB Last administered on 09/23/16at 10:07; Admin Dose 25 MLS/ HR; Start 09/19/16 at 18:00 Amitriptyline HCl (Elavil) 100 mg DAILY@18 PO Last administered on 09/22/16at 18:37; Admin Dose 100 MG; Start 09/21/16 at 18:00 Gabapentin (Neurontin) 100 mg DAILY@18 PO Last administered on 09/22/16at 17:51 ; Admin Dose 100 MG; Start 09/21/16 at 18:00 Methenamine (Hiprex) 1 gm BID@,18 PO Last administered on 09/23/16at 10:35; Admin Dose 1 GM; Start 09/21/16 at 18:00 Potassium Chloride (Klor-Con 10) 20 meq BID@,18 PO Last administered on 09/23at 10:36; Admin Dose 20 MEQ; Start 09/21/16 at 18:00 Sodium Hypochlorite 1 applic 1 applic DAILY IRR Last administered on at 10:07; Admin Dose 1 APPLIC; Start 09/22/16 at 12:00 Vancomycin HCl/ Sodium Chloride (Vancocin/NS) 250 ml @ 83.333 mls/ hr Q12H IVPB Last administered on 09/23/16at 13:18; Admin Dose 83.333 MLS/HR; Start at 12:00 Assessment/Plan Chief Complaint/Hosp Course Micro: wound cx + MRES/Enterococcus/E coli/Corynebact ANTIMICROBIALS: 1. Vancomycin. 2. Zosyn. PHYSICAL EXAMINATION: GENERAL: Fragile, elderly woman who is lying comfortably in bed. HEENT: Head atraumatic, normocephalic. Sclerae anicteric. Buccal mucosa dry. NECK: Supple, trachea midline. CHEST: Rise symmetrical. Breath sounds diminished to bases. HEART: S1, S2. ABDOMEN: Soft, bowel tones present. EXTREMITIES: Without cyanosis. SKIN: With multiple unstageable pressure ulcers on her lower back and sacrum. ASSESSMENT: 1. Systemic inflammatory response syndrome with leukocytosis present on admission secondary to #2 and #3. 2. Unstageable infected wounds, status post lower back wound debridement with wound VAC application. 3. Urinary tract infection==> Enterococcus. 4. History of bladder surgery with urostomy. 5. Paraplegia. PLAN: Clinically stable. Continue present care, abx, local wound care per surgery and nursing staff. DW staff Problems: PAOLO HEAD NP Sep 23, 2016 15:04
--- NOTE | 2016-09-23 15:46 | PN ---
Date/Time of Note Date/Time of Note DATE: 09/23/16 TIME: 15:45 Assessment/Plan VTE Prophylaxis VTE Prophylaxis Intervention: other Lines/Catheters IV Catheter Type (from [facility]): Saline Lock Urinary Cath still in place: No Assessment/Plan Chief Complaint/Hosp Course IMPRESSION: 1. Multiple decubitus. 2. Sepsis. 3. Leukocytosis. 4. Hypokalemia.BETTER 5. History of hypertension. 6 multiple decubitus plan antibiotic wound care PER SURGERY AND ID Problems: Subjective 24 Hr Interval Summary Respiratory: no complaints Cardiovascular: no complaints Exam/Review of Systems Vital Signs Vitals Vital Signs Date Time Temp Pulse Resp B/P Pulse Ox O2 Delivery O2 Flow Rate FiO2 09/23/16 08:00 98.9 94 16 108/67 97 Room Air Intake and Output 09/22/16 09/22/16 09/23/16 15:00 23:00 07:00 Intake Total 870 ml 2380 ml 1940 ml Output Total 0 ml 850 ml Balance 870 ml 2380 ml 1090 ml Exam Neck: supple Respiratory: clear to auscultation Cardiovascular: regular rate and rhythm Gastrointestinal: soft Extremities: No edema Results Result Diagram: 09/20/16 1445 09/23/16 0455 Results 24 hrs Laboratory Tests Test 09/23/16 04:55 Activated Partial Thromboplast Time 26.6 Alanine Aminotransferase (ALT/SGPT) 33 Albumin 2.5 L Albumin/Globulin Ratio 0.73 Alkaline Phosphatase 75 Anion Gap 11 Aspartate Amino Transf (AST/SGOT) 23 Blood Urea Nitrogen 6 L Calcium Level 8.2 L Carbon Dioxide Level 25 Chloride Level 111 H Creatinine 0.37 L Direct Bilirubin 0.00 Globulin 3.40 H Glucose Level 88 INR International Normalized Ratio 1.01 Indirect Bilirubin 0.0 Potassium Level 4.2 Prothrombin Time 13.3 Prothrombin Time Ratio 1.0 Sodium Level 143 Total Bilirubin 0.0 L Total Protein 5.9 L Medications Medications Current Medications Ascorbic Acid (Vitamin C) 500 mg DAILY PO Last administered on 09/23/16at 10:04 ; Admin Dose 500 MG; Start 09/20/16 at 09:00 Aspirin (Halfprin) 162 mg DAILY PO Last administered on 09/23/16at 10:02; Admin Dose 162 MG; Start 09/20/16 at 09:00 Acetaminophen/ Aspirin/Caffeine (Excedrin) 1 tab Q6H PRN PO PAIN; Start at 16:30 Diltiazem HCl (Cardizem Cd) 240 mg DAILY PO Last administered on 09/23/16 10: 03; Admin Dose 240 MG; Start 09/20/16 at 09:00 Ergocalciferol (Drisdol) 50,000 unit Q7D PO Last administered on 09/21/16 09: 00; Admin Dose 50,000 UNIT; Start 09/19/16 at 16:30 Acetaminophen/ Hydrocodone Bitart ([place] (5/325)) 1 tab Q8 PRN PO SEVERE PAIN LEVEL 7-10 Last administered on 09/22/16 11:10; Admin Dose 1 TAB; Start 09/19 at 16:30 Hydrocortisone (Hydrocortisone 2.5% Cr) 1 applic TID TOP Last administered on 09/23/16 13:18; Admin Dose 1 APPLIC; Start 09/19/16 at 21:00 Lubiprostone (Amitiza) 24 mcg BID PO Last administered on 09/23/16 10:03; Admin Dose 24 MCG; Start 09/19/16 at 21:00 Metoclopramide HCl (Reglan) 10 mg TID PRN PO NAUSEA; Start 09/19/16 at 16:30 Raloxifene HCl (Evista) 60 mg DAILY PO Last administered on 09/23/16 10:03; Admin Dose 60 MG; Start 09/20/16 at 09:00 Ranitidine HCl 150 mg 150 mg HS PO Last administered on 09/22/16at 21:52; Admin Dose 150 MG; Start 09/19/16 at 21:00 Potassium Chloride/Sodium Chloride (NS-KCl 20 Meq) 1,000 ml @ 60 mls/hr [id number] IV Last administered on 09/23/16 04:40; Admin Dose 60 MLS/HR; Start 09/19/16 at 16:11 Ondansetron HCl (Zofran Inj) 4 mg Q6H PRN IV NAUSEA AND/OR VOMITING; Start at 16:30 Acetaminophen (Tylenol Tab) 650 mg Q6H PRN PO PAIN LEVEL 1-3 OR FEVER Last administered on 09/20/16 13:15; Admin Dose 650 MG; Start 09/19/16 at 16:30 Acetaminophen/ Hydrocodone Bitart ([place] (5/325)) 1 tab Q6H PRN PO MODERATE PAIN LEVEL 4-6; Start 09/19/16 at 16:30 Enoxaparin Sodium 30 mg 30 mg DAILY SC Last administered on 09/23/16at 12:00; Admin Dose 30 MG; Start 09/20/16 at 09:00 Piperacillin Sod/ Tazobactam Sod (Zosyn 3.375gm/ 100 ml (Pmx)) 100 ml @ 25 mls/ hr TID@02,10,18 IVPB Last administered on 09/23/16at 10:07; Admin Dose 25 MLS/ HR; Start 09/19/16 at 18:00 Amitriptyline HCl (Elavil) 100 mg DAILY@18 PO Last administered on 09/22/16 18:37; Admin Dose 100 MG; Start 09/21/16 at 18:00 Gabapentin (Neurontin) 100 mg DAILY@18 PO Last administered on 09/22/16 17:51 ; Admin Dose 100 MG; Start 09/21/16 at 18:00 Methenamine (Hiprex) 1 gm BID@,18 PO Last administered on 09/23/16 10:35; Admin Dose 1 GM; Start 09/21/16 at 18:00 Potassium Chloride (Klor-Con 10) 20 meq BID@,18 PO Last administered on 09/23 10:36; Admin Dose 20 MEQ; Start 09/21/16 at 18:00 Sodium Hypochlorite 1 applic 1 applic DAILY IRR Last administered on at 10:07; Admin Dose 1 APPLIC; Start 09/22/16 at 12:00 Vancomycin HCl/ Sodium Chloride (Vancocin/NS) 250 ml @ 83.333 mls/ hr Q12H IVPB Last administered on 09/23/16at 13:18; Admin Dose 83.333 MLS/HR; Start at 12:00 GIANNI FRAZIER MD Sep 23, 2016 15:46
--- NOTE | 2016-09-23 18:35 | PN ---
Date/Time of Note Date/Time of Note DATE: 09/23/16 TIME: 18:31 Assessment/Plan Lines/Catheters IV Catheter Type (from [facility]): Saline Lock Chowdary in Place (from [facility]): No Assessment/Plan Chief Complaint/Hosp Course 1. Sepsis, probably secondary to infected right ischial/buttock abscess and decubitus ulceration plus urinary tract infection. s/p I&D and Debridement right buttock ulcer 09/20. Improving -IV antibiotics. -Off load. -Local care. -Nutrition optimization. -Vitamin C. -Plastics following. 2. Multiple decubitus ulcerations. -Continue offloading, optimizing nutrition, vitamin C and local care. -Will consider colostomy for stool diversion. 3. Muscular dystrophy. Continue medical management, offloading, and nutrition optimization. 4. Hypertension. Continue diet and medication control. 5. Anemia without evidence of acute blood loss. Continue close observation. 6. Significant hypokalemia, please replete. 7. Hypothyroidism. Continue replacing hormone. Thank you Problems: Subjective 24 Hr Interval Summary s/p Excisional debridement and I&D or right buttock abscess/necrotic wound . No f/c. No n/v. No cp/sob. No cough. No serrano/dizzy/visual or neuro changes. No dysuria. Exam/Review of Systems Vital Signs Vitals Vital Signs Date Time Temp Pulse Resp B/P Pulse Ox O2 Delivery O2 Flow Rate FiO2 09/23/16 08:00 98.9 94 16 108/67 97 Room Air Intake and Output 09/22/16 09/22/16 09/23/16 15:00 23:00 07:00 Intake Total 870 ml 2380 ml 1940 ml Output Total 0 ml 850 ml Balance 870 ml 2380 ml 1090 ml Exam Free Text/Dictation GENERAL: No acute distress, comfortable, pleasant. HEENT: Pupils equal, reactive. No scleral icterus. Mucous membranes are moist. NECK: Supple, no JVD. PULMONARY: Normal respiratory effort. No wheezing. CARDIAC: S1, S2 present. ABDOMEN: Soft, nontender, no rebound, no guarding. Left lower quadrant urinary fistula. EXTREMITIES: No edema. SKIN: No rashes, no jaundice; however, left and right ischial and sacrococcygeal decubitus ulcerations. VASCULAR: Capillary refill is 2 seconds. NEUROLOGIC: Alert, oriented, moves upper extremities grossly; however, unable to move the lower extremities. Results Result Diagram: 09/20/16 1445 09/23/16 0455 CAIO FINK MD Sep 23, 2016 18:34
[2016-09-23] MEDS: AMITRIPTYLINE 50 MG TAB PO SCH (18:45)
[2016-09-23] MEDS: MULTIVITAMINS/MINERALS TAB PO SCH (18:46)
[2016-09-23] MEDS: HYDROCODONE/APAP (5/325) TAB PO PRN (18:46)
[2016-09-23] MEDS: GABAPENTIN 100 MG CAP PO SCH (18:46)
[2016-09-23 20:00] VITALS: BP 110/68; PULSE 68; RESP 20
[2016-09-23] MEDS: RANITIDINE 150 MG TAB PO SCH (21:15)
[2016-09-23] MEDS: LACTOBACILLUS CHEW TAB PO SCH (21:15)
[2016-09-24] MEDS: VANCOMYCIN 1.25 GM in SOD CHLORIDE 0.9% 250 ML IVPB SCH ×2 (01:09→12:33)
[2016-09-24] MEDS: PIPER-TAZO 3.375 GM IV (PMX) 100 ML IVPB SCH ×2 (02:48→10:30)
[2016-09-24] MEDS: NS + KCL 20 MEQ 1,000 ML IV SCH ×2 (06:17→12:33)
[2016-09-24 07:35] VITALS: BP 91/50; PULSE 77; RESP 20
[2016-09-24] MEDS: SODIUM HYPOCHLORITE 1/40% 1L IRRIG IRR SCH (09:00)
[2016-09-24] MEDS: DILTIAZEM (CD) 240 MG CAP PO SCH (09:00)
[2016-09-24] MEDS: METHENAMINE 1 GM TAB PO SCH ×2 (10:22→20:53)
[2016-09-24] MEDS: COLLAGENASE 30 GM TUBE TOP SCH (10:22)
[2016-09-24] MEDS: RALOXIFENE 60 MG TAB PO SCH (10:22)
[2016-09-24] MEDS: ASCORBIC ACID 500 MG TAB PO SCH (10:23)
[2016-09-24] MEDS: ASPIRIN (EC) 81 MG TAB PO SCH (10:23)
[2016-09-24] MEDS: LACTOBACILLUS CHEW TAB PO SCH ×2 (10:23→20:53)
[2016-09-24] MEDS: LUBIPROSTONE 24 MCG CAP PO SCH ×2 (10:23→20:53)
[2016-09-24] MEDS: MULTIVITAMINS/MINERALS TAB PO SCH (10:23)
[2016-09-24] MEDS: POTASSIUM CHLORIDE (SR) 10 MEQ TAB PO SCH ×2 (10:29→18:32)
[2016-09-24] MEDS: ENOXAPARIN 30 MG/0.3 ML SYG SC SCH (10:40)
--- NOTE | 2016-09-24 14:51 | CONS ---
Date/Time of Note Date/Time of Note DATE: 09/24/16 TIME: 14:50 Consult Date/Type/Reason Admit Date/Time Sep 19, 2016 at 12:20 Type of Consultation: ID Subjective no events over night, alert, feels good, no fevers, nad Objective Vital Signs Date Time Temp Pulse Resp B/P Pulse Ox O2 Delivery O2 Flow Rate FiO2 09/24/16 07:35 98.5 77 20 91/50 95 Room Air Intake and Output 09/23/16 09/23/16 09/24/16 15:00 23:00 07:00 Intake Total 1650 ml 1590 ml Output Total 1575 ml 1700 ml Balance 75 ml -110 ml Results/Medications Result Diagram: 09/20/16 1445 09/23/16 0455 Medications Current Medications Ascorbic Acid (Vitamin C) 500 mg DAILY PO Last administered on 09/24/16at 10:23 ; Admin Dose 500 MG; Start 09/20/16 at 09:00 Aspirin (Halfprin) 162 mg DAILY PO Last administered on 09/24/16at 10:23; Admin Dose 162 MG; Start 09/20/16 at 09:00 Acetaminophen/ Aspirin/Caffeine (Excedrin) 1 tab Q6H PRN PO PAIN; Start at 16:30 Diltiazem HCl (Cardizem Cd) 240 mg DAILY PO Last administered on 09/23/16at 10: 03; Admin Dose 240 MG; Start 09/20/16 at 09:00 Ergocalciferol (Drisdol) 50,000 unit Q7D PO Last administered on 09/21/16at 09: 00; Admin Dose 50,000 UNIT; Start 09/19/16 at 16:30 Acetaminophen/ Hydrocodone Bitart ([place] (5/325)) 1 tab Q8 PRN PO SEVERE PAIN LEVEL 7-10 Last administered on 09/23/16at 18:46; Admin Dose 1 TAB; Start 09/19 at 16:30 Lubiprostone (Amitiza) 24 mcg BID PO Last administered on 09/24/16at 10:23; Admin Dose 24 MCG; Start 09/19/16 at 21:00 Metoclopramide HCl (Reglan) 10 mg TID PRN PO NAUSEA; Start 09/19/16 at 16:30 Raloxifene HCl (Evista) 60 mg DAILY PO Last administered on 09/24/16 10:22; Admin Dose 60 MG; Start 09/20/16 at 09:00 Ranitidine HCl 150 mg 150 mg HS PO Last administered on 09/23/16at 21:15; Admin Dose 150 MG; Start 09/19/16 at 21:00 Potassium Chloride/Sodium Chloride (NS-KCl 20 Meq) 1,000 ml @ 60 mls/hr [id number] IV Last administered on 09/24/16 06:17; Admin Dose 60 MLS/HR; Start 09/19/16 at 16:11 Ondansetron HCl (Zofran Inj) 4 mg Q6H PRN IV NAUSEA AND/OR VOMITING; Start at 16:30 Acetaminophen (Tylenol Tab) 650 mg Q6H PRN PO PAIN LEVEL 1-3 OR FEVER Last administered on 09/20/16 13:15; Admin Dose 650 MG; Start 09/19/16 at 16:30 Acetaminophen/ Hydrocodone Bitart ([place] (5/325)) 1 tab Q6H PRN PO MODERATE PAIN LEVEL 4-6; Start 09/19/16 at 16:30 Enoxaparin Sodium 30 mg 30 mg DAILY SC Last administered on 09/24/16at 10:40; Admin Dose 30 MG; Start 09/20/16 at 09:00 Piperacillin Sod/ Tazobactam Sod (Zosyn 3.375gm/ 100 ml (Pmx)) 100 ml @ 25 mls/ hr TID@02,10,18 IVPB Last administered on 09/24/16at 10:30; Admin Dose 25 MLS/ HR; Start 09/19/16 at 18:00 Amitriptyline HCl (Elavil) 100 mg DAILY@18 PO Last administered on 09/23/16at 18:45; Admin Dose 100 MG; Start 09/21/16 at 18:00 Gabapentin (Neurontin) 100 mg DAILY@18 PO Last administered on 09/23/16at 18:46 ; Admin Dose 100 MG; Start 09/21/16 at 18:00 Methenamine (Hiprex) 1 gm BID@09,18 PO Last administered on 09/24/16 10:22; Admin Dose 1 GM; Start 09/21/16 at 18:00 Potassium Chloride (Klor-Con 10) 20 meq BID@09,18 PO Last administered on 09/24at 10:29; Admin Dose 20 MEQ; Start 09/21/16 at 18:00 Sodium Hypochlorite 1 applic 1 applic DAILY IRR Last administered on at 10:07; Admin Dose 1 APPLIC; Start 09/22/16 at 12:00 Vancomycin HCl/ Sodium Chloride (Vancocin/NS) 250 ml @ 83.333 mls/ hr Q12H IVPB Last administered on 09/24/16at 12:33; Admin Dose 83.333 MLS/HR; Start at 12:00 Multivitamins/ Minerals (Theragran-M) 1 tab DAILY PO Last administered on 09/24at 10:23; Admin Dose 1 TAB; Start 09/23/16 at 17:00 Patient Own Medication 1 ea DAILY PO ; Start 09/24/16 at 14:00 Lactobacillus Acidoph/Bulgaricus (Floranex) 1 tab BID PO Last administered on 09/24/16at 10:23; Admin Dose 1 TAB; Start 09/23/16 at 21:00 Collagenase (Santyl) 1 applic DAILY TOP Last administered on 09/24/16at 10:22; Admin Dose 1 APPLIC; Start 09/24/16 at 09:00 Assessment/Plan Chief Complaint/Hosp Course Micro: wound cx + MRES/Enterococcus/E coli/Corynebact ANTIMICROBIALS: 1. Vancomycin. 2. Zosyn. PHYSICAL EXAMINATION: GENERAL: Fragile, elderly woman who is lying comfortably in bed. HEENT: Head atraumatic, normocephalic. Sclerae anicteric. Buccal mucosa dry. NECK: Supple, trachea midline. CHEST: Rise symmetrical. Breath sounds diminished to bases. HEART: S1, S2. ABDOMEN: Soft, bowel tones present. EXTREMITIES: Without cyanosis. SKIN: With multiple unstageable pressure ulcers on her lower back and sacrum. ASSESSMENT: 1. Systemic inflammatory response syndrome with leukocytosis present on admission secondary to #2 and #3. 2. Unstageable infected wounds, status post lower back wound debridement with wound VAC application. 3. Urinary tract infection==> Enterococcus. 4. History of bladder surgery with urostomy. 5. Paraplegia. PLAN: Clinically stable. Change Zosyn to Cefotaxime, continue local wound care per surgery and nursing staff. DW staff Problems: ISMAIL-ZADE,[employer] INSURANCE SPECIALIST Sep 24, 2016 14:51
--- NOTE | 2016-09-24 17:38 | PN ---
Date/Time of Note Date/Time of Note DATE: 09/24/16 TIME: 17:37 Assessment/Plan VTE Prophylaxis VTE Prophylaxis Intervention: other Lines/Catheters IV Catheter Type (from Nrsg): Peripheral IV Urinary Cath still in place: No Assessment/Plan Chief Complaint/Hosp Course IMPRESSION: 1. Multiple decubitus. 2. Sepsis. 3. Leukocytosis. 4. Hypokalemia.BETTER 5. History of hypertension. 6 multiple decubitus plan antibiotic wound care PER SURGERY AND ID pt refused snf Problems: Subjective 24 Hr Interval Summary Cardiovascular: no complaints Gastrointestinal: no complaints Genitourinary: no complaints Exam/Review of Systems Vital Signs Vitals Vital Signs Date Time Temp Pulse Resp B/P Pulse Ox O2 Delivery O2 Flow Rate FiO2 09/24/16 07:35 98.5 77 20 91/50 95 Room Air Intake and Output 09/23/16 09/23/16 09/24/16 15:00 23:00 07:00 Intake Total 1650 ml 1590 ml Output Total 1575 ml 1700 ml Balance 75 ml -110 ml Exam Neck: supple Respiratory: clear to auscultation Cardiovascular: regular rate and rhythm Gastrointestinal: bowel sounds (+), soft Extremities: No edema Results Result Diagram: 09/20/16 1445 09/23/16 0455 Medications Medications Current Medications Ascorbic Acid (Vitamin C) 500 mg DAILY PO Last administered on 09/24/16at 10:23 ; Admin Dose 500 MG; Start 09/20/16 at 09:00 Aspirin (Halfprin) 162 mg DAILY PO Last administered on 09/24/16at 10:23; Admin Dose 162 MG; Start 09/20/16 at 09:00 Acetaminophen/ Aspirin/Caffeine (Excedrin) 1 tab Q6H PRN PO PAIN; Start at 16:30 Diltiazem HCl (Cardizem Cd) 240 mg DAILY PO Last administered on 09/23/16at 10: 03; Admin Dose 240 MG; Start 09/20/16 at 09:00 Ergocalciferol (Drisdol) 50,000 unit Q7D PO Last administered on 09/21/16at 09: 00; Admin Dose 50,000 UNIT; Start 09/19/16 at 16:30 Acetaminophen/ Hydrocodone Bitart ([place] (5/325)) 1 tab Q8 PRN PO SEVERE PAIN LEVEL 7-10 Last administered on 09/23/16at 18:46; Admin Dose 1 TAB; Start 09/19 at 16:30 Lubiprostone (Amitiza) 24 mcg BID PO Last administered on 09/24/16at 10:23; Admin Dose 24 MCG; Start 09/19/16 at 21:00 Metoclopramide HCl (Reglan) 10 mg TID PRN PO NAUSEA; Start 09/19/16 at 16:30 Raloxifene HCl (Evista) 60 mg DAILY PO Last administered on 09/24/16at 10:22; Admin Dose 60 MG; Start 09/20/16 at 09:00 Ranitidine HCl 150 mg 150 mg HS PO Last administered on 09/23/16at 21:15; Admin Dose 150 MG; Start 09/19/16 at 21:00 Potassium Chloride/Sodium Chloride (NS-KCl 20 Meq) 1,000 ml @ 60 mls/hr [id number] IV Last administered on 09/24/16at 06:17; Admin Dose 60 MLS/HR; Start 09/19/16 at 16:11 Ondansetron HCl (Zofran Inj) 4 mg Q6H PRN IV NAUSEA AND/OR VOMITING; Start at 16:30 Acetaminophen (Tylenol Tab) 650 mg Q6H PRN PO PAIN LEVEL 1-3 OR FEVER Last administered on 09/20/16at 13:15; Admin Dose 650 MG; Start 09/19/16 at 16:30 Acetaminophen/ Hydrocodone Bitart ([place] (5/325)) 1 tab Q6H PRN PO MODERATE PAIN LEVEL 4-6; Start 09/19/16 at 16:30 Enoxaparin Sodium (Lovenox) 30 mg DAILY SC Last administered on 09/24/16at 10: 40; Admin Dose 30 MG; Start 09/20/16 at 09:00 Amitriptyline HCl (Elavil) 100 mg DAILY@18 PO Last administered on 09/23/16at 18:45; Admin Dose 100 MG; Start 09/21/16 at 18:00 Gabapentin (Neurontin) 100 mg DAILY@18 PO Last administered on 09/23/16at 18:46 ; Admin Dose 100 MG; Start 09/21/16 at 18:00 Methenamine (Hiprex) 1 gm BID@18 PO Last administered on 09/24/16 10:22; Admin Dose 1 GM; Start 09/21/16 at 18:00 Potassium Chloride (Klor-Con 10) 20 meq BID@09,18 PO Last administered on 09/24at 10:29; Admin Dose 20 MEQ; Start 09/21/16 at 18:00 Sodium Hypochlorite 1 applic 1 applic DAILY IRR Last administered on at 10:07; Admin Dose 1 APPLIC; Start 09/22/16 at 12:00 Vancomycin HCl/ Sodium Chloride (Vancocin/NS) 250 ml @ 83.333 mls/ hr Q12H IVPB Last administered on 09/24/16 12:33; Admin Dose 83.333 MLS/HR; Start at 12:00 Multivitamins/ Minerals (Theragran-M) 1 tab DAILY PO Last administered on 09/24 10:23; Admin Dose 1 TAB; Start 09/23/16 at 17:00 Patient Own Medication 1 ea DAILY PO ; Start 09/24/16 at 14:00 Lactobacillus Acidoph/Bulgaricus (Floranex) 1 tab BID PO Last administered on 09/24/16 10:23; Admin Dose 1 TAB; Start 09/23/16 at 21:00 Collagenase 1 applic 1 applic DAILY TOP Last administered on 09/24/16at 10:22; Admin Dose 1 APPLIC; Start 09/24/16 at 09:00 Cefotaxime Sodium (Claforan 1gm/50 ml (Pmx)) 50 ml @ 100 mls/hr Q8 IVPB ; Start 09/24/16 at 16:00 Miscellaneous Information (*Rx Drug Level Order Reminder*) 1 ONCE ONCE XX ; Start 09/24/16 at 23:00; Stop 09/24/16 at 23:01 GIANNI FRAZIER MD Sep 24, 2016 17:38
--- NOTE | 2016-09-24 18:29 | PN ---
Date/Time of Note Date/Time of Note DATE: 09/24/16 TIME: 18:28 Assessment/Plan Lines/Catheters IV Catheter Type (from [facility]): Peripheral IV [place] in Place (from [facility]): No Assessment/Plan Chief Complaint/Hosp Course 1. Sepsis, probably secondary to infected right ischial/buttock abscess and decubitus ulceration plus urinary tract infection. s/p I&D and Debridement right buttock ulcer 09/20. Improving -IV antibiotics. -Off load. -Local care. -Nutrition optimization. -Vitamin C. -Plastics following. 2. Multiple decubitus ulcerations. -Continue offloading, optimizing nutrition, vitamin C and local care. ? Colostomy for stool diversion will d/w family/team 3. Muscular dystrophy. Continue medical management, offloading, and nutrition optimization. 4. Hypertension. Continue diet and medication control. 5. Anemia without evidence of acute blood loss. Continue close observation. 6. Significant hypokalemia, please replete. 7. Hypothyroidism. Continue replacing hormone. Thank you Problems: Subjective 24 Hr Interval Summary s/p Excisional debridement and I&D or right buttock abscess/necrotic wound . No f/c. No n/v. No cp/sob. No cough. No serrano/dizzy/visual or neuro changes. No dysuria. Exam/Review of Systems Vital Signs Vitals Vital Signs Date Time Temp Pulse Resp B/P Pulse Ox O2 Delivery O2 Flow Rate FiO2 09/24/16 07:35 98.5 77 20 91/50 95 Room Air Intake and Output 09/23/16 09/23/16 09/24/16 15:00 23:00 07:00 Intake Total 1650 ml 1590 ml Output Total 1575 ml 1700 ml Balance 75 ml -110 ml Exam Free Text/Dictation GENERAL: No acute distress, comfortable, pleasant. HEENT: Pupils equal, reactive. No scleral icterus. Mucous membranes are moist. NECK: Supple, no JVD. PULMONARY: Normal respiratory effort. No wheezing. CARDIAC: S1, S2 present. ABDOMEN: Soft, nontender, no rebound, no guarding. Left lower quadrant urinary fistula. EXTREMITIES: No edema. SKIN: No rashes, no jaundice; however, left and right ischial and sacrococcygeal decubitus ulcerations. VASCULAR: Capillary refill is 2 seconds. NEUROLOGIC: Alert, oriented, moves upper extremities grossly; however, unable to move the lower extremities. Results Result Diagram: 09/20/16 1445 09/23/16 0455 CAIO FINK MD Sep 24, 2016 18:29
[2016-09-24] MEDS: VITAMIN C PO SCH (18:32)
[2016-09-24] MEDS: AMITRIPTYLINE 50 MG TAB PO SCH (18:32)
[2016-09-24] MEDS: CEFOTAXIME 1 GM/50 ML (PMX) 50 ML IVPB SCH (18:32)
[2016-09-24] MEDS: GABAPENTIN 100 MG CAP PO SCH (18:32)
[2016-09-24] MEDS: CRANBERRY PO SCH (18:32)
[2016-09-24 20:00] VITALS: BP 121/64; PULSE 96; RESP 18
[2016-09-24] MEDS: RANITIDINE 150 MG TAB PO SCH (20:53)
[2016-09-25] MEDS: CEFOTAXIME 1 GM/50 ML (PMX) 50 ML IVPB SCH ×4 (00:55→20:57)
[2016-09-25] MEDS: VANCOMYCIN 1.25 GM in SOD CHLORIDE 0.9% 250 ML IVPB SCH ×4 (01:29→15:05)
[2016-09-25] MEDS: NS + KCL 20 MEQ 1,000 ML IV SCH (06:14)
[2016-09-25 08:00] VITALS: BP 132/70; PULSE 105; RESP 20
[2016-09-25] MEDS: CRANBERRY PO SCH (08:41)
[2016-09-25] MEDS: LUBIPROSTONE 24 MCG CAP PO SCH ×2 (08:41→20:57)
[2016-09-25] MEDS: VITAMIN C PO SCH (08:41)
[2016-09-25] MEDS: DILTIAZEM (CD) 240 MG CAP PO SCH (08:42)
[2016-09-25] MEDS: RALOXIFENE 60 MG TAB PO SCH (08:43)
[2016-09-25] MEDS: LACTOBACILLUS CHEW TAB PO SCH ×2 (08:43→20:57)
[2016-09-25] MEDS: ASPIRIN (EC) 81 MG TAB PO SCH (08:44)
[2016-09-25] MEDS: METHENAMINE 1 GM TAB PO SCH ×2 (08:44→18:21)
[2016-09-25] MEDS: POTASSIUM CHLORIDE (SR) 10 MEQ TAB PO SCH ×2 (08:45→18:22)
[2016-09-25] MEDS: MULTIVITAMINS/MINERALS TAB PO SCH (08:45)
[2016-09-25] MEDS: ASCORBIC ACID 500 MG TAB PO SCH (08:46)
[2016-09-25] MEDS: COLLAGENASE 30 GM TUBE TOP SCH (08:48)
[2016-09-25] MEDS: ENOXAPARIN 30 MG/0.3 ML SYG SC SCH (08:57)
[2016-09-25] MEDS: SODIUM HYPOCHLORITE 1/40% 1L IRRIG IRR SCH ×2 (09:00→09:14)
[2016-09-25 09:16] VITALS: BP 132/70; PULSE 105; RESP 20
[2016-09-25] MEDS: ACETAMINOPHEN 325 MG TAB PO PRN (14:15)
--- NOTE | 2016-09-25 14:20 | CONS ---
Date/Time of Note Date/Time of Note DATE: 09/25/16 TIME: 14:19 Consult Date/Type/Reason Admit Date/Time Sep 19, 2016 at 12:20 Type of Consultation: ID Subjective no acute events, alert, feels ok, looks comfortable, no fevers, nad Objective Vital Signs Date Time Temp Pulse Resp B/P Pulse Ox O2 Delivery O2 Flow Rate FiO2 09/25/16 08:00 98.8 105 20 132/70 95 Room Air Intake and Output 09/24/16 09/24/16 09/25/16 15:00 23:00 07:00 Intake Total 1260 ml 1760 ml Output Total 2950 ml 1400 ml Balance -1690 ml 360 ml Results/Medications Result Diagram: 09/23/16 0455 Results 24 hrs Laboratory Tests Test 09/24/16 22:55 Vancomycin Level Trough 15.6 Medications Current Medications Ascorbic Acid (Vitamin C) 500 mg DAILY PO Last administered on 09/25/16 08:46 ; Admin Dose 500 MG; Start 09/20/16 at 09:00 Aspirin (Halfprin) 162 mg DAILY PO Last administered on 09/25/16at 08:44; Admin Dose 162 MG; Start 09/20/16 at 09:00 Acetaminophen/ Aspirin/Caffeine (Excedrin) 1 tab Q6H PRN PO PAIN; Start at 16:30 Diltiazem HCl (Cardizem Cd) 240 mg DAILY PO Last administered on 09/25/16at 08: 42; Admin Dose 240 MG; Start 09/20/16 at 09:00 Ergocalciferol (Drisdol) 50,000 unit Q7D PO Last administered on 09/21/16at 09: 00; Admin Dose 50,000 UNIT; Start 09/19/16 at 16:30 Acetaminophen/ Hydrocodone Bitart ([place] (5/325)) 1 tab Q8 PRN PO SEVERE PAIN LEVEL 7-10 Last administered on 09/23/16at 18:46; Admin Dose 1 TAB; Start 09/19 at 16:30 Lubiprostone (Amitiza) 24 mcg BID PO Last administered on 09/25/16 08:41; Admin Dose 24 MCG; Start 09/19/16 at 21:00 Metoclopramide HCl (Reglan) 10 mg TID PRN PO NAUSEA; Start 09/19/16 at 16:30 Raloxifene HCl (Evista) 60 mg DAILY PO Last administered on 09/25/16 08:43; Admin Dose 60 MG; Start 09/20/16 at 09:00 Ranitidine HCl 150 mg 150 mg HS PO Last administered on 09/24/16at 20:53; Admin Dose 150 MG; Start 09/19/16 at 21:00 Potassium Chloride/Sodium Chloride (NS-KCl 20 Meq) 1,000 ml @ 60 mls/hr [id number] IV Last administered on 09/25/16 06:14; Admin Dose 60 MLS/HR; Start 09/19/16 at 16:11 Ondansetron HCl (Zofran Inj) 4 mg Q6H PRN IV NAUSEA AND/OR VOMITING; Start at 16:30 Acetaminophen (Tylenol Tab) 650 mg Q6H PRN PO PAIN LEVEL 1-3 OR FEVER Last administered on 09/25/16 14:15; Admin Dose 650 MG; Start 09/19/16 at 16:30 Acetaminophen/ Hydrocodone Bitart ([place] (5/325)) 1 tab Q6H PRN PO MODERATE PAIN LEVEL 4-6; Start 09/19/16 at 16:30 Enoxaparin Sodium (Lovenox) 30 mg DAILY SC Last administered on 09/25/16 08: 57; Admin Dose 30 MG; Start 09/20/16 at 09:00 Amitriptyline HCl (Elavil) 100 mg DAILY@18 PO Last administered on 09/24/16 18:32; Admin Dose 100 MG; Start 09/21/16 at 18:00 Gabapentin (Neurontin) 100 mg DAILY@18 PO Last administered on 09/24/16 18:32 ; Admin Dose 100 MG; Start 09/21/16 at 18:00 Methenamine (Hiprex) 1 gm BID@ PO Last administered on 09/25/16 08:44; Admin Dose 1 GM; Start 09/21/16 at 18:00 Potassium Chloride (Klor-Con 10) 20 meq BID@,18 PO Last administered on 09/25 08:45; Admin Dose 20 MEQ; Start 09/21/16 at 18:00 Sodium Hypochlorite 1 applic 1 applic DAILY IRR Last administered on 12/26/ 16at 10:07; Admin Dose 1 APPLIC; Start 09/22/16 at 12:00 Vancomycin HCl/ Sodium Chloride (Vancocin/NS) 250 ml @ 83.333 mls/ hr Q12H IVPB Last administered on 09/25/16 01:29; Admin Dose 83.333 MLS/HR; Start at 12:00 Multivitamins/ Minerals (Theragran-M) 1 tab DAILY PO Last administered on 09/25at 08:45; Admin Dose 1 TAB; Start 09/23/16 at 17:00 Patient Own Medication 1 ea DAILY PO Last administered on 09/25/16 08:41; Admin Dose 1 EA; Start 09/24/16 at 14:00 Lactobacillus Acidoph/Bulgaricus (Floranex) 1 tab BID PO Last administered on 09/25/16 08:43; Admin Dose 1 TAB; Start 09/23/16 at 21:00 Collagenase 1 applic 1 applic DAILY TOP Last administered on 09/25/16 08:48; Admin Dose 1 APPLIC; Start 09/24/16 at 09:00 Cefotaxime Sodium (Claforan 1gm/50 ml (Pmx)) 50 ml @ 100 mls/hr Q8 IVPB Last administered on 09/25/16 14:10; Admin Dose 100 MLS/HR; Start 09/24/16 at 16: 00 Assessment/Plan Chief Complaint/Hosp Course Micro: wound cx + MRES/Enterococcus/E coli/Corynebact ANTIMICROBIALS: 1. Vancomycin. 2. Cefotaxime PHYSICAL EXAMINATION: GENERAL: Fragile, elderly woman who is lying comfortably in bed. HEENT: Head atraumatic, normocephalic. Sclerae anicteric. Buccal mucosa dry. NECK: Supple, trachea midline. CHEST: Rise symmetrical. Breath sounds diminished to bases. HEART: S1, S2. ABDOMEN: Soft, bowel tones present. EXTREMITIES: Without cyanosis. SKIN: With multiple unstageable pressure ulcers on her lower back and sacrum. ASSESSMENT: 1. Systemic inflammatory response syndrome with leukocytosis present on admission secondary to #2 and #3. 2. Unstageable infected wounds, status post lower back wound debridement with wound VAC application. 3. Urinary tract infection==> Enterococcus. 4. History of bladder surgery with urostomy. 5. Paraplegia. PLAN: Clinically stable. Continue abx, local wound care per surgery and nursing staff. DW staff Problems: PAOLO HEAD NP Sep 25, 2016 14:20
[2016-09-25] MEDS: GABAPENTIN 100 MG CAP PO SCH (18:22)
[2016-09-25] MEDS: AMITRIPTYLINE 50 MG TAB PO SCH (18:23)
--- NOTE | 2016-09-25 19:28 | PN ---
Date/Time of Note Date/Time of Note DATE: 09/25/16 TIME: 19:27 Assessment/Plan VTE Prophylaxis VTE Prophylaxis Intervention: other Lines/Catheters IV Catheter Type (from Nrs): Peripheral IV Urinary Cath still in place: No Assessment/Plan Chief Complaint/Hosp Course IMPRESSION: 1. Multiple decubitus. 2. Sepsis. 3. Leukocytosis. 4. Hypokalemia.BETTER 5. History of hypertension. 6 multiple decubitus plan antibiotic wound care PER SURGERY AND ID pt refused snf Problems: Subjective 24 Hr Interval Summary Respiratory: no complaints Cardiovascular: no complaints Gastrointestinal: no complaints Exam/Review of Systems Vital Signs Vitals Vital Signs Date Time Temp Pulse Resp B/P Pulse Ox O2 Delivery O2 Flow Rate FiO2 09/25/16 08:00 98.8 105 20 132/70 95 Room Air Intake and Output 09/24/16 09/24/16 09/25/16 15:00 23:00 07:00 Intake Total 1260 ml 1760 ml Output Total 2950 ml 1400 ml Balance -1690 ml 360 ml Exam Respiratory: clear to auscultation Cardiovascular: regular rate and rhythm Gastrointestinal: soft Musculoskeletal: muscle weakness Extremities: No edema Skin: other (decubitus+) Results Result Diagram: 09/23/16 0455 Results 24 hrs Laboratory Tests Test 09/24/16 22:55 Vancomycin Level Trough 15.6 Medications Medications Current Medications Ascorbic Acid (Vitamin C) 500 mg DAILY PO Last administered on 09/25/16at 08:46 ; Admin Dose 500 MG; Start 09/20/16 at 09:00 Aspirin (Halfprin) 162 mg DAILY PO Last administered on 09/25/16at 08:44; Admin Dose 162 MG; Start 09/20/16 at 09:00 Acetaminophen/ Aspirin/Caffeine (Excedrin) 1 tab Q6H PRN PO PAIN; Start at 16:30 Diltiazem HCl (Cardizem Cd) 240 mg DAILY PO Last administered on 09/25/16at 08: 42; Admin Dose 240 MG; Start 09/20/16 at 09:00 Ergocalciferol (Drisdol) 50,000 unit Q7D PO Last administered on 09/21/16at 09: 00; Admin Dose 50,000 UNIT; Start 09/19/16 at 16:30 Acetaminophen/ Hydrocodone Bitart ([place] (5/325)) 1 tab Q8 PRN PO SEVERE PAIN LEVEL 7-10 Last administered on 09/23/16 18:46; Admin Dose 1 TAB; Start 09/19 at 16:30 Lubiprostone (Amitiza) 24 mcg BID PO Last administered on 09/25/16 08:41; Admin Dose 24 MCG; Start 09/19/16 at 21:00 Metoclopramide HCl (Reglan) 10 mg TID PRN PO NAUSEA; Start 09/19/16 at 16:30 Raloxifene HCl (Evista) 60 mg DAILY PO Last administered on 09/25/16 08:43; Admin Dose 60 MG; Start 09/20/16 at 09:00 Ranitidine HCl 150 mg 150 mg HS PO Last administered on 09/24/16 20:53; Admin Dose 150 MG; Start 09/19/16 at 21:00 Potassium Chloride/Sodium Chloride (NS-KCl 20 Meq) 1,000 ml @ 60 mls/hr [id number] IV Last administered on 09/25/16 06:14; Admin Dose 60 MLS/HR; Start 09/19/16 at 16:11 Ondansetron HCl (Zofran Inj) 4 mg Q6H PRN IV NAUSEA AND/OR VOMITING; Start at 16:30 Acetaminophen (Tylenol Tab) 650 mg Q6H PRN PO PAIN LEVEL 1-3 OR FEVER Last administered on 09/25/16 14:15; Admin Dose 650 MG; Start 09/19/16 at 16:30 Acetaminophen/ Hydrocodone Bitart ([place] (5/325)) 1 tab Q6H PRN PO MODERATE PAIN LEVEL 4-6; Start 09/19/16 at 16:30 Enoxaparin Sodium (Lovenox) 30 mg DAILY SC Last administered on 09/25/16 08: 57; Admin Dose 30 MG; Start 09/20/16 at 09:00 Amitriptyline HCl (Elavil) 100 mg DAILY@18 PO Last administered on 09/25/16 18:23; Admin Dose 100 MG; Start 09/21/16 at 18:00 Gabapentin (Neurontin) 100 mg DAILY@18 PO Last administered on 09/25/16 18:22 ; Admin Dose 100 MG; Start 09/21/16 at 18:00 Methenamine (Hiprex) 1 gm BID@,18 PO Last administered on 09/25/16 18:21; Admin Dose 1 GM; Start 09/21/16 at 18:00 Potassium Chloride (Klor-Con 10) 20 meq BID@,18 PO Last administered on 09/25 18:22; Admin Dose 20 MEQ; Start 09/21/16 at 18:00 Sodium Hypochlorite 1 applic 1 applic DAILY IRR Last administered on 10:07; Admin Dose 1 APPLIC; Start 09/22/16 at 12:00 Vancomycin HCl/ Sodium Chloride (Vancocin/NS) 250 ml @ 83.333 mls/ hr Q12H IVPB Last administered on 09/25/16 15:05; Admin Dose 83.333 MLS/HR; Start at 12:00 Multivitamins/ Minerals (Theragran-M) 1 tab DAILY PO Last administered on 09/25 08:45; Admin Dose 1 TAB; Start 09/23/16 at 17:00 Patient Own Medication 1 ea DAILY PO Last administered on 09/25/16 08:41; Admin Dose 1 EA; Start 09/24/16 at 14:00 Lactobacillus Acidoph/Bulgaricus (Floranex) 1 tab BID PO Last administered on 09/25/16 08:43; Admin Dose 1 TAB; Start 09/23/16 at 21:00 Collagenase 1 applic 1 applic DAILY TOP Last administered on 09/25/16 08:48; Admin Dose 1 APPLIC; Start 09/24/16 at 09:00 Cefotaxime Sodium (Claforan 1gm/50 ml (Pmx)) 50 ml @ 100 mls/hr Q8 IVPB Last administered on 09/25/16 14:10; Admin Dose 100 MLS/HR; Start 09/24/16 at 16: 00 GIANNI FRAZIER MD Sep 25, 2016 19:27
[2016-09-25 20:00] VITALS: BP 105/58; PULSE 62; RESP 20
[2016-09-25] MEDS: RANITIDINE 150 MG TAB PO SCH (20:57)
[2016-09-26] MEDS: VANCOMYCIN 1.25 GM in SOD CHLORIDE 0.9% 250 ML IVPB SCH ×3 (00:14→23:41)
[2016-09-26] MEDS: NS + KCL 20 MEQ 1,000 ML IV SCH ×2 (00:15→14:51)
[2016-09-26 05:25] LABS: POTASSIUM 3.6 mmol/L (3.5-5.1)
[2016-09-26 05:27] LABS: CREATININE 0.3 mg/dl (0.44-1.00)
[2016-09-26 05:28] LABS: CALCIUM 7.5 mg/dl (8.4-10.2)
[2016-09-26] MEDS: CEFOTAXIME 1 GM/50 ML (PMX) 50 ML IVPB SCH ×4 (05:39→21:24)
[2016-09-26 05:48] LABS: BASOPHIL # 0.1 10^3/ul (0.0-0.1); BASOPHILS % 0.7 % (0.0-2.0); EOSINOPHILS # 0.3 10^3/ul (0.0-0.5); EOSINOPHILS % 3.3 % (0.0-7.0); HEMATOCRIT 29.4 % (37.0-47.0); HEMOGLOBIN 9.8 g/dl (12.0-16.0); LYMPHOCYTES # 1.8 10^3/ul (0.8-2.9); LYMPHOCYTES % 19.1 % (15.0-51.0); MEAN CORPUSCULAR HEMOGLOBIN 28.8 pg (29.0-33.0); MEAN CORPUSCULAR HGB CONC 33.2 g/dl (32.0-37.0); MEAN CORPUSCULAR VOLUME 86.7 fl (82.0-101.0); MEAN PLATELET VOLUME 6.9 fl (7.4-10.4); MONOCYTE # 0.7 10^3/ul (0.3-0.9); MONOCYTES % 7.1 % (0.0-11.0); NEUTROPHIL # 6.5 10^3/ul (1.6-7.5); NEUTROPHILS % 69.8 % (39.0-77.0); PLATELET COUNT 583 10^3/UL (140-440); RED BLOOD COUNT 3.39 10^6/ul (4.20-5.40); RED CELL DISTRIBUTION WIDTH 15.1 % (11.5-14.5); UNCORRECTED WBC 9.4 10^3/ul (4.8-10.8); WHITE BLOOD COUNT 9.4 10^3/ul (4.8-10.8)
[2016-09-26 06:02] LABS: CONDITION 1; LH ANALYZER COMMENTS 1
[2016-09-26 08:00] VITALS: BP 101/56; PULSE 70; RESP 16
[2016-09-26] MEDS: VITAMIN C PO SCH (08:35)
[2016-09-26] MEDS: CRANBERRY PO SCH (08:35)
[2016-09-26] MEDS: LUBIPROSTONE 24 MCG CAP PO SCH ×2 (08:36→20:26)
[2016-09-26] MEDS: RALOXIFENE 60 MG TAB PO SCH (08:36)
[2016-09-26] MEDS: LACTOBACILLUS CHEW TAB PO SCH ×2 (08:36→20:26)
[2016-09-26] MEDS: METHENAMINE 1 GM TAB PO SCH ×2 (08:37→17:51)
[2016-09-26] MEDS: ASPIRIN (EC) 81 MG TAB PO SCH (08:37)
[2016-09-26] MEDS: ASCORBIC ACID 500 MG TAB PO SCH (08:38)
[2016-09-26] MEDS: POTASSIUM CHLORIDE (SR) 10 MEQ TAB PO SCH ×2 (08:38→17:51)
[2016-09-26] MEDS: MULTIVITAMINS/MINERALS TAB PO SCH (08:38)
[2016-09-26] MEDS: SODIUM HYPOCHLORITE 1/40% 1L IRRIG IRR SCH (08:39)
[2016-09-26] MEDS: COLLAGENASE 30 GM TUBE TOP SCH (08:40)
[2016-09-26] MEDS: DILTIAZEM (CD) 240 MG CAP PO SCH (08:42)
[2016-09-26] MEDS: ENOXAPARIN 30 MG/0.3 ML SYG SC SCH (08:44)
[2016-09-26] MEDS: ACETAMINOPHEN 325 MG TAB PO PRN (14:13)
--- NOTE | 2016-09-26 16:25 | PN ---
Date/Time of Note Date/Time of Note DATE: 09/26/16 TIME: 16:24 Assessment/Plan VTE Prophylaxis VTE Prophylaxis Intervention: other Lines/Catheters IV Catheter Type (from Nrs): Peripheral IV Urinary Cath still in place: No Assessment/Plan Chief Complaint/Hosp Course IMPRESSION: 1. Multiple decubitus. 2. Sepsis. 3. Leukocytosis. 4. Hypokalemia.BETTER 5. History of hypertension. 6 multiple decubitus 7 MRSA,E COLI,CORNEB INF plan antibiotic wound care PER SURGERY AND ID pt refused snf Problems: Subjective 24 Hr Interval Summary Respiratory: no complaints Cardiovascular: no complaints Gastrointestinal: no complaints Genitourinary: No dysuria, No flank pain Exam/Review of Systems Vital Signs Vitals Vital Signs Date Time Temp Pulse Resp B/P Pulse Ox O2 Delivery O2 Flow Rate FiO2 09/26/16 08:00 98.6 70 16 101/56 96 Room Air Intake and Output 09/25/16 09/25/16 09/26/16 15:00 23:00 07:00 Intake Total 1430 ml 1480 ml Output Total 1375 ml 1750 ml 1550 ml Balance -1375 ml -320 ml -70 ml Exam Respiratory: clear to auscultation Cardiovascular: regular rate and rhythm Musculoskeletal: nl extremities to inspection Results Result Diagram: 09/26/16 0450 09/26/16 0450 Results 24 hrs Laboratory Tests Test 09/26/16 04:50 Anion Gap 14 Basophils # 0.1 Basophils % 0.7 Blood Morphology Comment Blood Urea Nitrogen 7 Calcium Level 7.5 L Carbon Dioxide Level 25 Chloride Level 106 Creatinine 0.30 L Eosinophils # 0.3 Eosinophils % 3.3 Glucose Level 176 Hematocrit 29.4 L Hemoglobin 9.8 L Lymphocytes # 1.8 Lymphocytes % 19.1 Mean Corpuscular Hemoglobin 28.8 L Mean Corpuscular Hemoglobin Concent 33.2 Mean Corpuscular Volume 86.7 Mean Platelet Volume 6.9 L Monocytes # 0.7 Monocytes % 7.1 Neutrophils # 6.5 Neutrophils % 69.8 Nucleated Red Blood Cells # 0.0 Nucleated Red Blood Cells % 0.0 Platelet Count 583 H Potassium Level 3.6 Red Blood Count 3.39 L Red Cell Distribution Width 15.1 H Sodium Level 141 White Blood Count 9.4 # Medications Medications Current Medications Ascorbic Acid (Vitamin C) 500 mg DAILY PO Last administered on 09/26/16 08:38 ; Admin Dose 500 MG; Start 09/20/16 at 09:00 Aspirin (Halfprin) 162 mg DAILY PO Last administered on 09/26/16 08:37; Admin Dose 162 MG; Start 09/20/16 at 09:00 Acetaminophen/ Aspirin/Caffeine (Excedrin) 1 tab Q6H PRN PO PAIN; Start at 16:30 Diltiazem HCl (Cardizem Cd) 240 mg DAILY PO Last administered on 09/25/16 08: 42; Admin Dose 240 MG; Start 09/20/16 at 09:00 Ergocalciferol (Drisdol) 50,000 unit Q7D PO Last administered on 09/21/16 09: 00; Admin Dose 50,000 UNIT; Start 09/19/16 at 16:30 Acetaminophen/ Hydrocodone Bitart ([place] (5/325)) 1 tab Q8 PRN PO SEVERE PAIN LEVEL 7-10 Last administered on 09/23/16 18:46; Admin Dose 1 TAB; Start 09/19 at 16:30 Lubiprostone (Amitiza) 24 mcg BID PO Last administered on 09/26/16 08:36; Admin Dose 24 MCG; Start 09/19/16 at 21:00 Metoclopramide HCl (Reglan) 10 mg TID PRN PO NAUSEA; Start 09/19/16 at 16:30 Raloxifene HCl (Evista) 60 mg DAILY PO Last administered on 09/26/16 08:36; Admin Dose 60 MG; Start 09/20/16 at 09:00 Ranitidine HCl 150 mg 150 mg HS PO Last administered on 09/25/16 20:57; Admin Dose 150 MG; Start 09/19/16 at 21:00 Potassium Chloride/Sodium Chloride (NS-KCl 20 Meq) 1,000 ml @ 60 mls/hr [id number] IV Last administered on 09/26/16 00:15; Admin Dose 60 MLS/HR; Start 09/19/16 at 16:11 Ondansetron HCl (Zofran Inj) 4 mg Q6H PRN IV NAUSEA AND/OR VOMITING; Start at 16:30 Acetaminophen (Tylenol Tab) 650 mg Q6H PRN PO PAIN LEVEL 1-3 OR FEVER Last administered on 09/26/16 14:13; Admin Dose 650 MG; Start 09/19/16 at 16:30 Acetaminophen/ Hydrocodone Bitart ([place] (5/325)) 1 tab Q6H PRN PO MODERATE PAIN LEVEL 4-6; Start 09/19/16 at 16:30 Enoxaparin Sodium (Lovenox) 30 mg DAILY SC Last administered on 09/26/16 08: 44; Admin Dose 30 MG; Start 09/20/16 at 09:00 Amitriptyline HCl (Elavil) 100 mg DAILY@18 PO Last administered on 09/25/16 18:23; Admin Dose 100 MG; Start 09/21/16 at 18:00 Gabapentin (Neurontin) 100 mg DAILY@18 PO Last administered on 09/25/16 18:22 ; Admin Dose 100 MG; Start 09/21/16 at 18:00 Methenamine (Hiprex) 1 gm BID@18 PO Last administered on 09/26/16 08:37; Admin Dose 1 GM; Start 09/21/16 at 18:00 Potassium Chloride (Klor-Con 10) 20 meq BID@,18 PO Last administered on 09/26 08:38; Admin Dose 20 MEQ; Start 09/21/16 at 18:00 Sodium Hypochlorite 1 applic 1 applic DAILY IRR Last administered on 08:39; Admin Dose 1 APPLIC; Start 09/22/16 at 12:00 Vancomycin HCl/ Sodium Chloride (Vancocin/NS) 250 ml @ 83.333 mls/ hr Q12H IVPB Last administered on 09/26/16 12:05; Admin Dose 83.333 MLS/HR; Start at 12:00 Multivitamins/ Minerals (Theragran-M) 1 tab DAILY PO Last administered on 09/26 08:38; Admin Dose 1 TAB; Start 09/23/16 at 17:00 Patient Own Medication 1 ea DAILY PO Last administered on 09/26/16 08:35; Admin Dose 1 EA; Start 09/24/16 at 14:00 Lactobacillus Acidoph/Bulgaricus (Floranex) 1 tab BID PO Last administered on 09/26/16 08:36; Admin Dose 1 TAB; Start 09/23/16 at 21:00 Collagenase 1 applic 1 applic DAILY TOP Last administered on 09/26/16at 08:40; Admin Dose 1 APPLIC; Start 09/24/16 at 09:00 Cefotaxime Sodium (Claforan 1gm/50 ml (Pmx)) 50 ml @ 100 mls/hr Q8 IVPB Last administered on 09/26/16at 15:14; Admin Dose 100 MLS/HR; Start 09/24/16 at 16: 00 GIANNI FRAZIER MD Sep 26, 2016 16:25
[2016-09-26] MEDS: ERGOCALCIFEROL 50,000 UNIT CAP PO SCH ×2 (16:30→17:50)
[2016-09-26] MEDS: AMITRIPTYLINE 50 MG TAB PO SCH (17:50)
[2016-09-26] MEDS: GABAPENTIN 100 MG CAP PO SCH (17:52)
--- NOTE | 2016-09-26 18:40 | CONS ---
Date/Time of Note Date/Time of Note DATE: 09/26/16 TIME: 18:40 Consult Date/Type/Reason Admit Date/Time Sep 19, 2016 at 12:20 Type of Consultation: ID Subjective no events, awake, looks comfortable no fevers Objective Vital Signs Date Time Temp Pulse Resp B/P Pulse Ox O2 Delivery O2 Flow Rate FiO2 09/26/16 08:00 98.6 70 16 101/56 96 Room Air Intake and Output 09/25/16 09/25/16 09/26/16 14:59 22:59 06:59 Intake Total 1430 ml 1480 ml Output Total 1375 ml 1750 ml 1550 ml Balance -1375 ml -320 ml -70 ml Results/Medications Result Diagram: 09/26/16 0450 09/26/16 0450 Results 24 hrs Laboratory Tests Test 09/26/16 04:50 Anion Gap 14 Basophils # 0.1 Basophils % 0.7 Blood Morphology Comment Blood Urea Nitrogen 7 Calcium Level 7.5 L Carbon Dioxide Level 25 Chloride Level 106 Creatinine 0.30 L Eosinophils # 0.3 Eosinophils % 3.3 Glucose Level 176 Hematocrit 29.4 L Hemoglobin 9.8 L Lymphocytes # 1.8 Lymphocytes % 19.1 Mean Corpuscular Hemoglobin 28.8 L Mean Corpuscular Hemoglobin Concent 33.2 Mean Corpuscular Volume 86.7 Mean Platelet Volume 6.9 L Monocytes # 0.7 Monocytes % 7.1 Neutrophils # 6.5 Neutrophils % 69.8 Nucleated Red Blood Cells # 0.0 Nucleated Red Blood Cells % 0.0 Platelet Count 583 H Potassium Level 3.6 Red Blood Count 3.39 L Red Cell Distribution Width 15.1 H Sodium Level 141 White Blood Count 9.4 # Medications Current Medications Ascorbic Acid (Vitamin C) 500 mg DAILY PO Last administered on 09/26/16at 08:38 ; Admin Dose 500 MG; Start 09/20/16 at 09:00 Aspirin (Halfprin) 162 mg DAILY PO Last administered on 09/26/16at 08:37; Admin Dose 162 MG; Start 09/20/16 at 09:00 Acetaminophen/ Aspirin/Caffeine (Excedrin) 1 tab Q6H PRN PO PAIN; Start at 16:30 Diltiazem HCl (Cardizem Cd) 240 mg DAILY PO Last administered on 09/25/16at 08: 42; Admin Dose 240 MG; Start 09/20/16 at 09:00 Ergocalciferol (Drisdol) 50,000 unit Q7D PO Last administered on 09/26/16at 17: 50; Admin Dose 50,000 UNIT; Start 09/19/16 at 16:30 Acetaminophen/ Hydrocodone Bitart ([place] (5/325)) 1 tab Q8 PRN PO SEVERE PAIN LEVEL 7-10 Last administered on 09/23/16 18:46; Admin Dose 1 TAB; Start 09/19 at 16:30 Lubiprostone (Amitiza) 24 mcg BID PO Last administered on 09/26/16 08:36; Admin Dose 24 MCG; Start 09/19/16 at 21:00 Metoclopramide HCl (Reglan) 10 mg TID PRN PO NAUSEA; Start 09/19/16 at 16:30 Raloxifene HCl (Evista) 60 mg DAILY PO Last administered on 09/26/16 08:36; Admin Dose 60 MG; Start 09/20/16 at 09:00 Ranitidine HCl 150 mg 150 mg HS PO Last administered on 09/25/16at 20:57; Admin Dose 150 MG; Start 09/19/16 at 21:00 Potassium Chloride/Sodium Chloride (NS-KCl 20 Meq) 1,000 ml @ 60 mls/hr [id number] IV Last administered on 09/26/16at 00:15; Admin Dose 60 MLS/HR; Start 09/19/16 at 16:11 Ondansetron HCl (Zofran Inj) 4 mg Q6H PRN IV NAUSEA AND/OR VOMITING; Start at 16:30 Acetaminophen (Tylenol Tab) 650 mg Q6H PRN PO PAIN LEVEL 1-3 OR FEVER Last administered on 09/26/16 14:13; Admin Dose 650 MG; Start 09/19/16 at 16:30 Acetaminophen/ Hydrocodone Bitart ([place] (5/325)) 1 tab Q6H PRN PO MODERATE PAIN LEVEL 4-6; Start 09/19/16 at 16:30 Enoxaparin Sodium (Lovenox) 30 mg DAILY SC Last administered on 09/26/16at 08: 44; Admin Dose 30 MG; Start 09/20/16 at 09:00 Amitriptyline HCl (Elavil) 100 mg DAILY@18 PO Last administered on 09/26/16 17:50; Admin Dose 100 MG; Start 09/21/16 at 18:00 Gabapentin (Neurontin) 100 mg DAILY@18 PO Last administered on 09/26/16 17:52 ; Admin Dose 100 MG; Start 09/21/16 at 18:00 Methenamine (Hiprex) 1 gm BID@, PO Last administered on 09/26/16 17:51; Admin Dose 1 GM; Start 09/21/16 at 18:00 Potassium Chloride (Klor-Con 10) 20 meq BID@, PO Last administered on 09/26 17:51; Admin Dose 20 MEQ; Start 09/21/16 at 18:00 Sodium Hypochlorite 1 applic 1 applic DAILY IRR Last administered on 08:39; Admin Dose 1 APPLIC; Start 09/22/16 at 12:00 Vancomycin HCl/ Sodium Chloride (Vancocin/NS) 250 ml @ 83.333 mls/ hr Q12H IVPB Last administered on 09/26/16 12:05; Admin Dose 83.333 MLS/HR; Start at 12:00 Multivitamins/ Minerals (Theragran-M) 1 tab DAILY PO Last administered on 09/26 08:38; Admin Dose 1 TAB; Start 09/23/16 at 17:00 Patient Own Medication 1 ea DAILY PO Last administered on 09/26/16 08:35; Admin Dose 1 EA; Start 09/24/16 at 14:00 Lactobacillus Acidoph/Bulgaricus (Floranex) 1 tab BID PO Last administered on 09/26/16 08:36; Admin Dose 1 TAB; Start 09/23/16 at 21:00 Collagenase 1 applic 1 applic DAILY TOP Last administered on 09/26/16 08:40; Admin Dose 1 APPLIC; Start 09/24/16 at 09:00 Cefotaxime Sodium (Claforan 1gm/50 ml (Pmx)) 50 ml @ 100 mls/hr Q8 IVPB Last administered on 09/26/16 15:14; Admin Dose 100 MLS/HR; Start 09/24/16 at 16: 00 Assessment/Plan Chief Complaint/Hosp Course Micro: wound cx + MRES/Enterococcus/E coli/Corynebact ANTIMICROBIALS: 1. Vancomycin. 2. Cefotaxime PHYSICAL EXAMINATION: GENERAL: Fragile, elderly woman who is lying comfortably in bed. HEENT: Head atraumatic, normocephalic. Sclerae anicteric. Buccal mucosa dry. NECK: Supple, trachea midline. CHEST: Rise symmetrical. Breath sounds diminished to bases. HEART: S1, S2. ABDOMEN: Soft, bowel tones present. EXTREMITIES: Without cyanosis. SKIN: With multiple unstageable pressure ulcers on her lower back and sacrum. ASSESSMENT: 1. Systemic inflammatory response syndrome with leukocytosis present on admission secondary to #2 and #3. 2. Unstageable infected wounds, status post lower back wound debridement with wound VAC application. 3. Urinary tract infection==> Enterococcus. 4. History of bladder surgery with urostomy. 5. Paraplegia. PLAN: Remains stable. Continue abx, local wound care per surgery and nursing staff. [facility] staff Problems: PAOLO HEAD NP Sep 26, 2016 18:40
[2016-09-26 20:00] VITALS: BP 116/74; PULSE 92; RESP 16
[2016-09-26] MEDS: RANITIDINE 150 MG TAB PO SCH (20:26)
--- NOTE | 2016-09-26 20:49 | PN ---
Date/Time of Note Date/Time of Note DATE: 09/25/16 TIME: 20:45 Assessment/Plan Lines/Catheters IV Catheter Type (from [facility]): Peripheral IV Chowdary in Place (from [facility]): No Assessment/Plan Chief Complaint/Hosp Course 1. Sepsis, probably secondary to infected right ischial/buttock abscess and decubitus ulceration plus urinary tract infection. s/p I&D and Debridement right buttock ulcer 09/20. Improving -IV antibiotics. -Off load. -Local care. -Nutrition optimization. -Vitamin C. -Plastics following. -Patient agreeing to diverting colostomy 2. Multiple decubitus ulcerations. -Continue offloading, optimizing nutrition, vitamin C and local care. -Patient agreeing to diverting colostomy 3. Muscular dystrophy. Continue medical management, offloading, and nutrition optimization. 4. Hypertension. Continue diet and medication control. 5. Anemia without evidence of acute blood loss. Continue close observation. 6. Significant hypokalemia, please replete. 7. Hypothyroidism. Continue replacing hormone. Thank you Late entry 09/25 Problems: Subjective 24 Hr Interval Summary Leukocytosis improving. No f/c. No n/v. No cp/sob. No cough. No serrano/dizzy/ visual or neuro changes. Bloated. Exam/Review of Systems Vital Signs Vitals Vital Signs Date Time Temp Pulse Resp B/P Pulse Ox O2 Delivery O2 Flow Rate FiO2 09/26/16 08:00 98.6 70 16 101/56 96 Room Air Intake and Output 09/25/16 09/25/16 09/26/16 14:59 22:59 06:59 Intake Total 1430 ml 1480 ml Output Total 1375 ml 1750 ml 1550 ml Balance -1375 ml -320 ml -70 ml Exam Free Text/Dictation GENERAL: No acute distress, comfortable, pleasant. HEENT: Pupils equal, reactive. No scleral icterus. Mucous membranes are moist. NECK: Supple, no JVD. PULMONARY: Normal respiratory effort. No wheezing. CARDIAC: S1, S2 present. ABDOMEN: Soft, nontender, no rebound, no guarding. Bloated. Left lower quadrant urinary fistula. EXTREMITIES: No edema. SKIN: No rashes, no jaundice; however, left and right ischial and sacrococcygeal decubitus ulcerations. VASCULAR: Capillary refill is 2 seconds. NEUROLOGIC: Alert, oriented, moves upper extremities grossly; however, unable to move the lower extremities. Results Result Diagram: 09/26/16 0450 09/26/16 0450 CAIO FINK MD Sep 26, 2016 20:49
--- NOTE | 2016-09-26 20:51 | PN ---
Date/Time of Note Date/Time of Note DATE: 09/26/16 TIME: 20:49 Assessment/Plan Lines/Catheters IV Catheter Type (from [facility]): Peripheral IV Chowdary in Place (from [facility]): No Assessment/Plan Chief Complaint/Hosp Course 1. Sepsis, probably secondary to infected right ischial/buttock abscess and decubitus ulceration plus urinary tract infection. s/p I&D and Debridement right buttock ulcer 09/20. Improved. -Antibiotics. -Off load. -Local care. -Nutrition optimization. -Vitamin C. -Plastics outpt following -No colostomy at this time per patient 2. Multiple decubitus ulcerations. -Continue offloading, optimizing nutrition, vitamin C and local care. -No colostomy at this time per pt. 3. Muscular dystrophy. Continue medical management, offloading, and nutrition optimization. 4. Hypertension. Continue diet and medication control. 5. Anemia without evidence of acute blood loss. Continue close observation. 6. Significant hypokalemia, please replete. 7. Hypothyroidism. Continue replacing hormone. Thank you Problems: Subjective 24 Hr Interval Summary Leukocytosis resolved. No f/c. No n/v. No cp/sob. No cough. No serrano/dizzy/ visual or neuro changes. Bloated. Patient does not want colostomy anymore and prefers to go home. Exam/Review of Systems Vital Signs Vitals Vital Signs Date Time Temp Pulse Resp B/P Pulse Ox O2 Delivery O2 Flow Rate FiO2 09/26/16 08:00 98.6 70 16 101/56 96 Room Air Intake and Output 09/25/16 09/25/16 09/26/16 14:59 22:59 06:59 Intake Total 1430 ml 1480 ml Output Total 1375 ml 1750 ml 1550 ml Balance -1375 ml -320 ml -70 ml Exam Free Text/Dictation GENERAL: No acute distress, comfortable, pleasant. HEENT: Pupils equal, reactive. No scleral icterus. Mucous membranes are moist. NECK: Supple, no JVD. PULMONARY: Normal respiratory effort. No wheezing. CARDIAC: S1, S2 present. ABDOMEN: Soft, nontender, no rebound, no guarding. Bloated. Left lower quadrant urinary fistula. EXTREMITIES: No edema. SKIN: No rashes, no jaundice; however, left and right ischial and sacrococcygeal decubitus ulcerations. VASCULAR: Capillary refill is 2 seconds. NEUROLOGIC: Alert, oriented, moves upper extremities grossly; however, unable to move the lower extremities. Results Result Diagram: 09/26/16 0450 09/26/16 0450 CAIO FINK MD Sep 26, 2016 20:50
[2016-09-27] MEDS: NS + KCL 20 MEQ 1,000 ML IV SCH (04:11)
[2016-09-27] MEDS: CEFOTAXIME 1 GM/50 ML (PMX) 50 ML IVPB SCH ×3 (05:40→22:05)
[2016-09-27 08:00] VITALS: BP 111/71; PULSE 101; RESP 18
[2016-09-27] MEDS: SODIUM HYPOCHLORITE 1/40% 1L IRRIG IRR SCH (09:08)
[2016-09-27] MEDS: ASCORBIC ACID 500 MG TAB PO SCH (09:10)
[2016-09-27] MEDS: LUBIPROSTONE 24 MCG CAP PO SCH ×2 (09:10→20:55)
[2016-09-27] MEDS: LACTOBACILLUS CHEW TAB PO SCH ×2 (09:10→20:55)
[2016-09-27] MEDS: RALOXIFENE 60 MG TAB PO SCH (09:10)
[2016-09-27] MEDS: DILTIAZEM (CD) 240 MG CAP PO SCH (09:11)
[2016-09-27] MEDS: ASPIRIN (EC) 81 MG TAB PO SCH (09:11)
[2016-09-27] MEDS: MULTIVITAMINS/MINERALS TAB PO SCH (09:11)
[2016-09-27] MEDS: VITAMIN C PO SCH (09:12)
[2016-09-27] MEDS: CRANBERRY PO SCH (09:12)
[2016-09-27] MEDS: COLLAGENASE 30 GM TUBE TOP SCH (09:13)
[2016-09-27] MEDS: METHENAMINE 1 GM TAB PO SCH ×3 (09:18→19:53)
[2016-09-27] MEDS: POTASSIUM CHLORIDE (SR) 10 MEQ TAB PO SCH ×2 (09:18→18:47)
[2016-09-27] MEDS: ENOXAPARIN 30 MG/0.3 ML SYG SC SCH (09:37)
[2016-09-27] MEDS: VANCOMYCIN 1.25 GM in SOD CHLORIDE 0.9% 250 ML IVPB SCH (11:51)
[2016-09-27] MEDS: ACETAMINOPHEN 325 MG TAB PO PRN (13:28)
--- NOTE | 2016-09-27 13:58 | PN ---
Date/Time of Note Date/Time of Note DATE: 09/27/16 TIME: 13:56 Assessment/Plan Lines/Catheters IV Catheter Type (from [facility]): Peripheral IV Chowdary in Place (from [facility]): No Assessment/Plan Chief Complaint/Hosp Course 1. Sepsis, probably secondary to infected right ischial/buttock abscess and decubitus ulceration plus urinary tract infection. s/p I&D and Debridement right buttock ulcer 09/20. Resolved. -Antibiotics. -Off load. -Local care. -Nutrition optimization. -Vitamin C. -Plastics outpt following -No colostomy at this time per patient 2. Multiple decubitus ulcerations. -Continue offloading, optimizing nutrition, vitamin C and local care. -No colostomy at this time per pt. 3. Muscular dystrophy. Continue medical management, offloading, and nutrition optimization. 4. Hypertension. Continue diet and medication control. 5. Anemia without evidence of acute blood loss. Continue close observation. 6. Significant hypokalemia, please replete. 7. Hypothyroidism. Continue replacing hormone. Thank you Problems: Subjective 24 Hr Interval Summary Patient does not want colostomy anymore and prefers to go home. Leukocytosis resolved. No f/c. No n/v. No cp/sob. No cough. No serrano/dizzy/visual or neuro changes. Bloated. Exam/Review of Systems Vital Signs Vitals Vital Signs Date Time Temp Pulse Resp B/P Pulse Ox O2 Delivery O2 Flow Rate FiO2 09/27/16 08:00 98.1 101 18 111/71 96 Room Air Intake and Output 09/26/16 09/26/16 09/27/16 15:00 23:00 07:00 Intake Total 1400 ml 1050 ml Output Total 0 ml 1300 ml 1350 ml Balance 0 ml 100 ml -300 ml Exam Free Text/Dictation GENERAL: No acute distress, comfortable, pleasant. HEENT: Pupils equal, reactive. No scleral icterus. Mucous membranes are moist. NECK: Supple, no JVD. PULMONARY: Normal respiratory effort. No wheezing. CARDIAC: S1, S2 present. ABDOMEN: Soft, nontender, no rebound, no guarding. Bloated. Left lower quadrant urinary fistula. EXTREMITIES: No edema. SKIN: No rashes, no jaundice; however, left and right ischial and sacrococcygeal decubitus ulcerations. VASCULAR: Capillary refill is 2 seconds. NEUROLOGIC: Alert, oriented, moves upper extremities grossly; however, unable to move the lower extremities. Results Result Diagram: 09/26/16 0450 09/26/16 0450 CAIO FINK MD Sep 27, 2016 13:58
--- NOTE | 2016-09-27 16:26 | CONS ---
Date/Time of Note Date/Time of Note DATE: 09/27/16 TIME: 16:25 Consult Date/Type/Reason Admit Date/Time Sep 19, 2016 at 12:20 Type of Consultation: ID Subjective alert, feels good, no fevers, nad Objective Vital Signs Date Time Temp Pulse Resp B/P Pulse Ox O2 Delivery O2 Flow Rate FiO2 09/27/16 08:00 98.1 101 18 111/71 96 Room Air Intake and Output 09/26/16 09/26/16 09/27/16 15:00 23:00 07:00 Intake Total 1400 ml 1050 ml Output Total 0 ml 1300 ml 1350 ml Balance 0 ml 100 ml -300 ml Results/Medications Result Diagram: 09/26/16 0450 09/26/16 0450 Medications Current Medications Ascorbic Acid (Vitamin C) 500 mg DAILY PO Last administered on 09/27/16at 09:10 ; Admin Dose 500 MG; Start 09/20/16 at 09:00 Aspirin (Halfprin) 162 mg DAILY PO Last administered on 09/27/16at 09:11; Admin Dose 162 MG; Start 09/20/16 at 09:00 Acetaminophen/ Aspirin/Caffeine (Excedrin) 1 tab Q6H PRN PO PAIN; Start at 16:30 Diltiazem HCl (Cardizem Cd) 240 mg DAILY PO Last administered on 09/27/16at 09: 11; Admin Dose 240 MG; Start 09/20/16 at 09:00 Ergocalciferol (Drisdol) 50,000 unit Q7D PO Last administered on 09/26/16at 17: 50; Admin Dose 50,000 UNIT; Start 09/19/16 at 16:30 Acetaminophen/ Hydrocodone Bitart ([place] (5/325)) 1 tab Q8 PRN PO SEVERE PAIN LEVEL 7-10 Last administered on 09/23/16at 18:46; Admin Dose 1 TAB; Start 09/19 at 16:30 Lubiprostone (Amitiza) 24 mcg BID PO Last administered on 09/27/16at 09:10; Admin Dose 24 MCG; Start 09/19/16 at 21:00 Metoclopramide HCl (Reglan) 10 mg TID PRN PO NAUSEA; Start 09/19/16 at 16:30 Raloxifene HCl (Evista) 60 mg DAILY PO Last administered on 09/27/16 09:10; Admin Dose 60 MG; Start 09/20/16 at 09:00 Ranitidine HCl 150 mg 150 mg HS PO Last administered on 09/26/16 20:26; Admin Dose 150 MG; Start 09/19/16 at 21:00 Potassium Chloride/Sodium Chloride (NS-KCl 20 Meq) 1,000 ml @ 60 mls/hr [id number] IV Last administered on 09/27/16 04:11; Admin Dose 60 MLS/HR; Start 09/19/16 at 16:11 Ondansetron HCl (Zofran Inj) 4 mg Q6H PRN IV NAUSEA AND/OR VOMITING; Start at 16:30 Acetaminophen (Tylenol Tab) 650 mg Q6H PRN PO PAIN LEVEL 1-3 OR FEVER Last administered on 09/27/16 13:28; Admin Dose 650 MG; Start 09/19/16 at 16:30 Acetaminophen/ Hydrocodone Bitart ([place] (5/325)) 1 tab Q6H PRN PO MODERATE PAIN LEVEL 4-6; Start 09/19/16 at 16:30 Enoxaparin Sodium (Lovenox) 30 mg DAILY SC Last administered on 09/27/16 09: 37; Admin Dose 30 MG; Start 09/20/16 at 09:00 Amitriptyline HCl (Elavil) 100 mg DAILY@18 PO Last administered on 09/26/16 17:50; Admin Dose 100 MG; Start 09/21/16 at 18:00 Gabapentin (Neurontin) 100 mg DAILY@18 PO Last administered on 09/26/16 17:52 ; Admin Dose 100 MG; Start 09/21/16 at 18:00 Methenamine (Hiprex) 1 gm BID@18 PO Last administered on 09/27/16 09:18; Admin Dose 1 GM; Start 09/21/16 at 18:00 Potassium Chloride (Klor-Con 10) 20 meq BID@18 PO Last administered on 09/27 09:18; Admin Dose 20 MEQ; Start 09/21/16 at 18:00 Sodium Hypochlorite 1 applic 1 applic DAILY IRR Last administered on 09:08; Admin Dose 1 APPLIC; Start 12/25/16 at 12:00 Vancomycin HCl/ Sodium Chloride (Vancocin/NS) 250 ml @ 83.333 mls/ hr Q12H IVPB Last administered on 09/27/16at 11:51; Admin Dose 83.333 MLS/HR; Start at 12:00 Multivitamins/ Minerals (Theragran-M) 1 tab DAILY PO Last administered on 09/27at 09:11; Admin Dose 1 TAB; Start 09/23/16 at 17:00 Patient Own Medication 1 ea DAILY PO Last administered on 09/27/16at 09:12; Admin Dose 1 EA; Start 09/24/16 at 14:00 Lactobacillus Acidoph/Bulgaricus (Floranex) 1 tab BID PO Last administered on 09/27/16at 09:10; Admin Dose 1 TAB; Start 09/23/16 at 21:00 Collagenase 1 applic 1 applic DAILY TOP Last administered on 09/27/16at 09:13; Admin Dose 1 APPLIC; Start 09/24/16 at 09:00 Cefotaxime Sodium (Claforan 1gm/50 ml (Pmx)) 50 ml @ 100 mls/hr Q8 IVPB Last administered on 09/27/16at 15:04; Admin Dose 100 MLS/HR; Start 09/24/16 at 16: 00 Miscellaneous Information (*Rx Drug Level Order Reminder*) 1 ONCE ONCE XX ; Start 09/27/16 at 23:00; Stop 09/27/16 at 23:01 Assessment/Plan Chief Complaint/Hosp Course Micro: wound cx + MRES/Enterococcus/E coli/Corynebact ANTIMICROBIALS: 1. Vancomycin. 2. Cefotaxime PHYSICAL EXAMINATION: GENERAL: Fragile, elderly woman who is lying comfortably in bed. HEENT: Head atraumatic, normocephalic. Sclerae anicteric. Buccal mucosa dry. NECK: Supple, trachea midline. CHEST: Rise symmetrical. Breath sounds diminished to bases. HEART: S1, S2. ABDOMEN: Soft, bowel tones present. EXTREMITIES: Without cyanosis. SKIN: With multiple unstageable pressure ulcers on her lower back and sacrum. ASSESSMENT: 1. Systemic inflammatory response syndrome with leukocytosis present on admission secondary to #2 and #3. 2. Unstageable infected wounds, status post lower back wound debridement with wound VAC application. 3. Urinary tract infection==> Enterococcus. 4. History of bladder surgery with urostomy. 5. Paraplegia. PLAN: Remains stable. Refused debridement, will complete abx for 7 more days, continue abx, local wound care per surgery and nursing staff. [facility] staff [facility] [place] Problems: PAOLO HEAD NP Sep 27, 2016 16:26
--- NOTE | 2016-09-27 18:32 | PN ---
Date/Time of Note Date/Time of Note DATE: 09/27/16 TIME: 18:31 Assessment/Plan VTE Prophylaxis VTE Prophylaxis Intervention: other Lines/Catheters IV Catheter Type (from Nrs): Peripheral IV Urinary Cath still in place: No Assessment/Plan Chief Complaint/Hosp Course IMPRESSION: 1. Multiple decubitus. 2. Sepsis. 3. Leukocytosis. 4. Hypokalemia.BETTER 5. History of hypertension. 6 multiple decubitus 7 MRSA,E COLI,CORNEB INF plan antibiotic wound care PER SURGERY AND ID pt refused snf Problems: Subjective 24 Hr Interval Summary Gastrointestinal: no complaints Genitourinary: no complaints Exam/Review of Systems Vital Signs Vitals Vital Signs Date Time Temp Pulse Resp B/P Pulse Ox O2 Delivery O2 Flow Rate FiO2 09/27/16 08:00 98.1 101 18 111/71 96 Room Air Intake and Output 09/26/16 09/26/16 09/27/16 14:59 22:59 06:59 Intake Total 1400 ml 1050 ml Output Total 0 ml 1300 ml 1350 ml Balance 0 ml 100 ml -300 ml Exam Respiratory: clear to auscultation Cardiovascular: regular rate and rhythm Gastrointestinal: soft Musculoskeletal: nl extremities to inspection Extremities: normal pulses Skin: other (WOUND+) Results Result Diagram: 09/26/16 0450 09/26/16 0450 Medications Medications Current Medications Ascorbic Acid (Vitamin C) 500 mg DAILY PO Last administered on 09/27/16at 09:10 ; Admin Dose 500 MG; Start 09/20/16 at 09:00 Aspirin (Halfprin) 162 mg DAILY PO Last administered on 09/27/16at 09:11; Admin Dose 162 MG; Start 09/20/16 at 09:00 Acetaminophen/ Aspirin/Caffeine (Excedrin) 1 tab Q6H PRN PO PAIN; Start at 16:30 Diltiazem HCl (Cardizem Cd) 240 mg DAILY PO Last administered on 09/27/16at 09: 11; Admin Dose 240 MG; Start 09/20/16 at 09:00 Ergocalciferol (Drisdol) 50,000 unit Q7D PO Last administered on 09/26/16at 17: 50; Admin Dose 50,000 UNIT; Start 09/19/16 at 16:30 Acetaminophen/ Hydrocodone Bitart ([place] (5/325)) 1 tab Q8 PRN PO SEVERE PAIN LEVEL 7-10 Last administered on 09/23/16 18:46; Admin Dose 1 TAB; Start 09/19 at 16:30 Lubiprostone (Amitiza) 24 mcg BID PO Last administered on 09/27/16 09:10; Admin Dose 24 MCG; Start 09/19/16 at 21:00 Metoclopramide HCl (Reglan) 10 mg TID PRN PO NAUSEA; Start 09/19/16 at 16:30 Raloxifene HCl (Evista) 60 mg DAILY PO Last administered on 09/27/16 09:10; Admin Dose 60 MG; Start 09/20/16 at 09:00 Ranitidine HCl 150 mg 150 mg HS PO Last administered on 09/26/16 20:26; Admin Dose 150 MG; Start 09/19/16 at 21:00 Potassium Chloride/Sodium Chloride (NS-KCl 20 Meq) 1,000 ml @ 60 mls/hr [id number] IV Last administered on 09/27/16 04:11; Admin Dose 60 MLS/HR; Start 09/19/16 at 16:11 Ondansetron HCl (Zofran Inj) 4 mg Q6H PRN IV NAUSEA AND/OR VOMITING; Start at 16:30 Acetaminophen (Tylenol Tab) 650 mg Q6H PRN PO PAIN LEVEL 1-3 OR FEVER Last administered on 09/27/16 13:28; Admin Dose 650 MG; Start 09/19/16 at 16:30 Acetaminophen/ Hydrocodone Bitart ([place] (5/325)) 1 tab Q6H PRN PO MODERATE PAIN LEVEL 4-6; Start 09/19/16 at 16:30 Enoxaparin Sodium (Lovenox) 30 mg DAILY SC Last administered on 09/27/16 09: 37; Admin Dose 30 MG; Start 09/20/16 at 09:00 Amitriptyline HCl (Elavil) 100 mg DAILY@18 PO Last administered on 09/26/16 17:50; Admin Dose 100 MG; Start 09/21/16 at 18:00 Gabapentin (Neurontin) 100 mg DAILY@18 PO Last administered on 09/26/16 17:52 ; Admin Dose 100 MG; Start 09/21/16 at 18:00 Methenamine (Hiprex) 1 gm BID@09,18 PO Last administered on 09/27/16 09:18; Admin Dose 1 GM; Start 09/21/16 at 18:00 Potassium Chloride (Klor-Con 10) 20 meq BID@ PO Last administered on 09/27 09:18; Admin Dose 20 MEQ; Start 09/21/16 at 18:00 Sodium Hypochlorite 1 applic 1 applic DAILY IRR Last administered on 09:08; Admin Dose 1 APPLIC; Start 09/22/16 at 12:00 Vancomycin HCl/ Sodium Chloride (Vancocin/NS) 250 ml @ 83.333 mls/ hr Q12H IVPB Last administered on 09/27/16 11:51; Admin Dose 83.333 MLS/HR; Start at 12:00 Multivitamins/ Minerals (Theragran-M) 1 tab DAILY PO Last administered on 09/27 09:11; Admin Dose 1 TAB; Start 09/23/16 at 17:00 Patient Own Medication 1 ea DAILY PO Last administered on 09/27/16 09:12; Admin Dose 1 EA; Start 09/24/16 at 14:00 Lactobacillus Acidoph/Bulgaricus (Floranex) 1 tab BID PO Last administered on 09/27/16 09:10; Admin Dose 1 TAB; Start 09/23/16 at 21:00 Collagenase 1 applic 1 applic DAILY TOP Last administered on 09/27/16 09:13; Admin Dose 1 APPLIC; Start 09/24/16 at 09:00 Cefotaxime Sodium (Claforan 1gm/50 ml (Pmx)) 50 ml @ 100 mls/hr Q8 IVPB Last administered on 09/27/16 15:04; Admin Dose 100 MLS/HR; Start 09/24/16 at 16: 00 Miscellaneous Information (*Rx Drug Level Order Reminder*) 1 ONCE ONCE XX ; Start 09/27/16 at 23:00; Stop 09/27/16 at 23:01 GIANNI FRAZIER MD Sep 27, 2016 18:31
[2016-09-27] MEDS: GABAPENTIN 100 MG CAP PO SCH (18:46)
[2016-09-27] MEDS: AMITRIPTYLINE 50 MG TAB PO SCH (18:46)
[2016-09-27 20:30] VITALS: BP 130/85; PULSE 90; RESP 16
[2016-09-27] MEDS: RANITIDINE 150 MG TAB PO SCH (20:55)
[2016-09-28] MEDS: NS + KCL 20 MEQ 1,000 ML IV SCH ×2 (00:11→11:36)
[2016-09-28] MEDS: VANCOMYCIN 1.25 GM in SOD CHLORIDE 0.9% 250 ML IVPB SCH ×2 (00:31→11:34)
[2016-09-28] MEDS: CEFOTAXIME 1 GM/50 ML (PMX) 50 ML IVPB SCH ×3 (06:31→21:44)
[2016-09-28 08:00] VITALS: BP 99/63; PULSE 88; RESP 18
[2016-09-28] MEDS: MULTIVITAMINS/MINERALS TAB PO SCH (09:05)
[2016-09-28] MEDS: RALOXIFENE 60 MG TAB PO SCH (09:05)
[2016-09-28] MEDS: LUBIPROSTONE 24 MCG CAP PO SCH ×2 (09:05→21:43)
[2016-09-28] MEDS: SODIUM HYPOCHLORITE 1/40% 1L IRRIG IRR SCH (09:06)
[2016-09-28] MEDS: ASPIRIN (EC) 81 MG TAB PO SCH (09:06)
[2016-09-28] MEDS: LACTOBACILLUS CHEW TAB PO SCH ×2 (09:06→20:41)
[2016-09-28] MEDS: ASCORBIC ACID 500 MG TAB PO SCH (09:06)
[2016-09-28] MEDS: DILTIAZEM (CD) 240 MG CAP PO SCH (09:06)
[2016-09-28] MEDS: COLLAGENASE 30 GM TUBE TOP SCH (09:07)
[2016-09-28] MEDS: CRANBERRY PO SCH (09:08)
[2016-09-28] MEDS: VITAMIN C PO SCH (09:08)
[2016-09-28] MEDS: POTASSIUM CHLORIDE (SR) 10 MEQ TAB PO SCH ×2 (09:15→17:57)
[2016-09-28] MEDS: ENOXAPARIN 30 MG/0.3 ML SYG SC SCH (09:24)
[2016-09-28] MEDS: METHENAMINE 1 GM TAB PO SCH ×2 (10:34→17:56)
--- NOTE | 2016-09-28 14:40 | PN ---
Date/Time of Note Date/Time of Note DATE: 09/28/16 TIME: 14:39 Assessment/Plan Lines/Catheters IV Catheter Type (from [facility]): Peripheral IV Chowdary in Place (from [facility]): No Assessment/Plan Chief Complaint/Hosp Course 1. Sepsis, probably secondary to infected right ischial/buttock abscess and decubitus ulceration plus urinary tract infection. s/p I&D and Debridement right buttock ulcer 09/20. Resolved. -Antibiotics. -Off load. -Local care. -Nutrition optimization. -Vitamin C. -Plastics outpt following -No colostomy at this time per patient 2. Multiple decubitus ulcerations. -Continue offloading, optimizing nutrition, vitamin C and local care. -No colostomy at this time per pt. 3. Muscular dystrophy. Continue medical management, offloading, and nutrition optimization. 4. Hypertension. Continue diet and medication control. 5. Anemia without evidence of acute blood loss. Continue close observation. 6. Significant hypokalemia, please replete. 7. Hypothyroidism. Continue replacing hormone. Thank you Problems: Subjective 24 Hr Interval Summary Patient does not want colostomy at this time. Leukocytosis resolved. No f/c. No n/v. No cp/sob. No cough. No serrano/dizzy/visual or neuro changes. Bloated. Exam/Review of Systems Vital Signs Vitals Vital Signs Date Time Temp Pulse Resp B/P Pulse Ox O2 Delivery O2 Flow Rate FiO2 09/28/16 08:00 98.6 88 18 99/63 93 Room Air Intake and Output 09/27/16 09/27/16 09/28/16 15:00 23:00 07:00 Intake Total 2130 ml 540 ml Output Total 1600 ml 1275 ml Balance 530 ml -735 ml Exam Free Text/Dictation GENERAL: No acute distress, comfortable, pleasant. HEENT: Pupils equal, reactive. No scleral icterus. Mucous membranes are moist. NECK: Supple, no JVD. PULMONARY: Normal respiratory effort. No wheezing. CARDIAC: S1, S2 present. ABDOMEN: Soft, nontender, no rebound, no guarding. Bloated. Left lower quadrant urinary fistula. EXTREMITIES: No edema. SKIN: No rashes, no jaundice; however, left and right ischial and sacrococcygeal decubitus ulcerations. VASCULAR: Capillary refill is 2 seconds. NEUROLOGIC: Alert, oriented, moves upper extremities grossly; however, unable to move the lower extremities. Results Result Diagram: 09/26/16 0450 09/26/16 0450 CAIO FINK MD Sep 28, 2016 14:40
--- NOTE | 2016-09-28 15:35 | PN ---
Date/Time of Note Date/Time of Note DATE: 09/28/16 TIME: 15:34 Assessment/Plan VTE Prophylaxis VTE Prophylaxis Intervention: other Lines/Catheters IV Catheter Type (from Nrs): Peripheral IV Urinary Cath still in place: No Assessment/Plan Chief Complaint/Hosp Course IMPRESSION: 1. Multiple decubitus. 2. Sepsis. 3. Leukocytosis. 4. Hypokalemia.BETTER 5. History of hypertension. 6 multiple decubitus 7 MRSA,E COLI,CORNEB INF plan antibiotic wound care PER SURGERY AND ID pt refused snf Problems: Subjective 24 Hr Interval Summary Cardiovascular: no complaints Gastrointestinal: no complaints Exam/Review of Systems Vital Signs Vitals Vital Signs Date Time Temp Pulse Resp B/P Pulse Ox O2 Delivery O2 Flow Rate FiO2 09/28/16 08:00 98.6 88 18 99/63 93 Room Air Intake and Output 09/27/16 09/27/16 09/28/16 15:00 23:00 07:00 Intake Total 2130 ml 540 ml Output Total 1600 ml 1275 ml Balance 530 ml -735 ml Exam Neck: supple Respiratory: clear to auscultation Cardiovascular: regular rate and rhythm Gastrointestinal: soft Extremities: edema (neg) Skin: other (decubitus) Results Result Diagram: 09/26/16 0450 09/26/16 0450 Results 24 hrs Laboratory Tests Test 09/27/16 23:29 Vancomycin Level Trough 13.5 Medications Medications Current Medications Ascorbic Acid (Vitamin C) 500 mg DAILY PO Last administered on 09/28/16at 09:06 ; Admin Dose 500 MG; Start 09/20/16 at 09:00 Aspirin (Halfprin) 162 mg DAILY PO Last administered on 09/28/16at 09:06; Admin Dose 162 MG; Start 09/20/16 at 09:00 Acetaminophen/ Aspirin/Caffeine (Excedrin) 1 tab Q6H PRN PO PAIN; Start at 16:30 Diltiazem HCl (Cardizem Cd) 240 mg DAILY PO Last administered on 09/28/16at 09: 06; Admin Dose 240 MG; Start 09/20/16 at 09:00 Ergocalciferol (Drisdol) 50,000 unit Q7D PO Last administered on 09/26/16at 17: 50; Admin Dose 50,000 UNIT; Start 09/19/16 at 16:30 Acetaminophen/ Hydrocodone Bitart ([place] (5/325)) 1 tab Q8 PRN PO SEVERE PAIN LEVEL 7-10 Last administered on 09/23/16 18:46; Admin Dose 1 TAB; Start 09/19 at 16:30 Lubiprostone (Amitiza) 24 mcg BID PO Last administered on 09/28/16 09:05; Admin Dose 24 MCG; Start 09/19/16 at 21:00 Metoclopramide HCl (Reglan) 10 mg TID PRN PO NAUSEA; Start 09/19/16 at 16:30 Raloxifene HCl (Evista) 60 mg DAILY PO Last administered on 09/28/16 09:05; Admin Dose 60 MG; Start 09/20/16 at 09:00 Ranitidine HCl 150 mg 150 mg HS PO Last administered on 09/27/16 20:55; Admin Dose 150 MG; Start 09/19/16 at 21:00 Potassium Chloride/Sodium Chloride (NS-KCl 20 Meq) 1,000 ml @ 60 mls/hr [id number] IV Last administered on 09/28/16 11:36; Admin Dose 60 MLS/HR; Start 09/19/16 at 16:11 Ondansetron HCl (Zofran Inj) 4 mg Q6H PRN IV NAUSEA AND/OR VOMITING; Start at 16:30 Acetaminophen (Tylenol Tab) 650 mg Q6H PRN PO PAIN LEVEL 1-3 OR FEVER Last administered on 09/27/16 13:28; Admin Dose 650 MG; Start 09/19/16 at 16:30 Acetaminophen/ Hydrocodone Bitart ([place] (5/325)) 1 tab Q6H PRN PO MODERATE PAIN LEVEL 4-6; Start 09/19/16 at 16:30 Enoxaparin Sodium (Lovenox) 30 mg DAILY SC Last administered on 09/28/16 09: 24; Admin Dose 30 MG; Start 09/20/16 at 09:00 Amitriptyline HCl (Elavil) 100 mg DAILY@18 PO Last administered on 09/27/16 18:46; Admin Dose 100 MG; Start 09/21/16 at 18:00 Gabapentin (Neurontin) 100 mg DAILY@18 PO Last administered on 09/27/16 18:46 ; Admin Dose 100 MG; Start 09/21/16 at 18:00 Methenamine (Hiprex) 1 gm BID@09,18 PO Last administered on 09/28/16 10:34; Admin Dose 1 GM; Start 09/21/16 at 18:00 Potassium Chloride (Klor-Con 10) 20 meq BID@09,18 PO Last administered on 09/28 09:15; Admin Dose 20 MEQ; Start 09/21/16 at 18:00 Sodium Hypochlorite 1 applic 1 applic DAILY IRR Last administered on 09:06; Admin Dose 1 APPLIC; Start 09/22/16 at 12:00 Vancomycin HCl/ Sodium Chloride (Vancocin/NS) 250 ml @ 83.333 mls/ hr Q12H IVPB Last administered on 09/28/16 11:34; Admin Dose 83.333 MLS/HR; Start at 12:00 Multivitamins/ Minerals (Theragran-M) 1 tab DAILY PO Last administered on 09/28 09:05; Admin Dose 1 TAB; Start 09/23/16 at 17:00 Patient Own Medication 1 ea DAILY PO Last administered on 09/28/16 09:08; Admin Dose 1 EA; Start 09/24/16 at 14:00 Lactobacillus Acidoph/Bulgaricus (Floranex) 1 tab BID PO Last administered on 09/28/16 09:06; Admin Dose 1 TAB; Start 09/23/16 at 21:00 Collagenase 1 applic 1 applic DAILY TOP Last administered on 09/28/16 09:07; Admin Dose 1 APPLIC; Start 09/24/16 at 09:00 Cefotaxime Sodium (Claforan 1gm/50 ml (Pmx)) 50 ml @ 100 mls/hr Q8 IVPB Last administered on 09/28/16 06:31; Admin Dose 100 MLS/HR; Start 09/24/16 at 16: 00 GIANNI FRAZIER MD Sep 28, 2016 15:35
--- NOTE | 2016-09-28 16:17 | CONS ---
Date/Time of Note Date/Time of Note DATE: 09/28/16 TIME: 16:16 Assessment/Plan Assessment/Plan Chief Complaint/Hosp Course ID PROGRESS NOTE 24H INTERVAL SUMMARY * 71 yo F, resting comfortably, no fevers, VSS, NAD * Per Surgery note: Patient declined diverting colostomy at this time PHYSICAL EXAMINATION: GENERAL: 71 yo F, VSS, NAD HEENT: Unremarkable NECK: Supple, full Rom LUNGS: Chest rise symmetrical, without dyspnea on observation ABDOMEN: Soft EXTREMITIES: Warm SKIN: See photos, decubs, (+)Wound vac ID ASSESSMENT: 71 yo F w/PMHx Muscular Dystrophy and paraplegia admit with: 1. Sepsis, probably secondary to infected right ischial/buttock abscess and decubitus ulceration plus urinary tract infection = RESOLVED * BCx on admission (-) 2. Multiple unstageable decubitus ulcerations with Polymicrobial pathogens = (+ )Wound Vac * s/p I&D and Debridement ischial/right buttock ulcer 09/20. * Plastics surgery OP on case 3. Enterococcal UTI on admission 4. History of bladder surgery with urostomy. 5. Anemia 6. Hypothyroidism, on replacement 7. Hypertension. (+ )MRSA stool colonization Nares Screen ordered CURRENT ABX: Vanco IV + Cefotaxime ID RECOMMENDATIONS/PLAN: Continue current ABX -> Swab nares for MRSA Off loading, wound care tx continues . Problems: Consultation Date/Type/Reason Admit Date/Time Sep 19, 2016 at 12:20 Initial Consult Date Type of Consultation: ID Exam/Review of Systems Vital Signs Vitals Vital Signs Date Time Temp Pulse Resp B/P Pulse Ox O2 Delivery O2 Flow Rate FiO2 09/28/16 08:00 98.6 88 18 99/63 93 Room Air Intake and Output 09/27/16 09/27/16 09/28/16 15:00 23:00 07:00 Intake Total 2130 ml 540 ml Output Total 1600 ml 1275 ml Balance 530 ml -735 ml Results Result Diagram: 09/26/16 0450 09/26/16 0450 Results 24 hrs Laboratory Tests Test 09/27/16 23:29 Vancomycin Level Trough 13.5 Medications Medications Current Medications Ascorbic Acid (Vitamin C) 500 mg DAILY PO Last administered on 09/28/16at 09:06 ; Admin Dose 500 MG; Start 12/23/16 at 09:00 Aspirin (Halfprin) 162 mg DAILY PO Last administered on 09/28/16 09:06; Admin Dose 162 MG; Start 09/20/16 at 09:00 Acetaminophen/ Aspirin/Caffeine (Excedrin) 1 tab Q6H PRN PO PAIN; Start at 16:30 Diltiazem HCl (Cardizem Cd) 240 mg DAILY PO Last administered on 09/28/16 09: 06; Admin Dose 240 MG; Start 09/20/16 at 09:00 Ergocalciferol (Drisdol) 50,000 unit Q7D PO Last administered on 09/26/16 17: 50; Admin Dose 50,000 UNIT; Start 09/19/16 at 16:30 Acetaminophen/ Hydrocodone Bitart ([place] (5/325)) 1 tab Q8 PRN PO SEVERE PAIN LEVEL 7-10 Last administered on 09/23/16 18:46; Admin Dose 1 TAB; Start 09/19 at 16:30 Lubiprostone (Amitiza) 24 mcg BID PO Last administered on 09/28/16 09:05; Admin Dose 24 MCG; Start 09/19/16 at 21:00 Metoclopramide HCl (Reglan) 10 mg TID PRN PO NAUSEA; Start 09/19/16 at 16:30 Raloxifene HCl (Evista) 60 mg DAILY PO Last administered on 09/28/16 09:05; Admin Dose 60 MG; Start 09/20/16 at 09:00 Ranitidine HCl 150 mg 150 mg HS PO Last administered on 09/27/16at 20:55; Admin Dose 150 MG; Start 09/19/16 at 21:00 Potassium Chloride/Sodium Chloride (NS-KCl 20 Meq) 1,000 ml @ 60 mls/hr [id number] IV Last administered on 09/28/16 11:36; Admin Dose 60 MLS/HR; Start 09/19/16 at 16:11 Ondansetron HCl (Zofran Inj) 4 mg Q6H PRN IV NAUSEA AND/OR VOMITING; Start at 16:30 Acetaminophen (Tylenol Tab) 650 mg Q6H PRN PO PAIN LEVEL 1-3 OR FEVER Last administered on 09/27/16 13:28; Admin Dose 650 MG; Start 09/19/16 at 16:30 Acetaminophen/ Hydrocodone Bitart ([place] (5/325)) 1 tab Q6H PRN PO MODERATE PAIN LEVEL 4-6; Start 09/19/16 at 16:30 Enoxaparin Sodium (Lovenox) 30 mg DAILY SC Last administered on 09/28/16 09: 24; Admin Dose 30 MG; Start 09/20/16 at 09:00 Amitriptyline HCl (Elavil) 100 mg DAILY@18 PO Last administered on 09/27/16 18:46; Admin Dose 100 MG; Start 09/21/16 at 18:00 Gabapentin (Neurontin) 100 mg DAILY@18 PO Last administered on 09/27/16 18:46 ; Admin Dose 100 MG; Start 09/21/16 at 18:00 Methenamine (Hiprex) 1 gm BID@18 PO Last administered on 09/28/16 10:34; Admin Dose 1 GM; Start 09/21/16 at 18:00 Potassium Chloride (Klor-Con 10) 20 meq BID@ PO Last administered on 09/28 09:15; Admin Dose 20 MEQ; Start 09/21/16 at 18:00 Sodium Hypochlorite 1 applic 1 applic DAILY IRR Last administered on 09:06; Admin Dose 1 APPLIC; Start 09/22/16 at 12:00 Vancomycin HCl/ Sodium Chloride (Vancocin/NS) 250 ml @ 83.333 mls/ hr Q12H IVPB Last administered on 09/28/16 11:34; Admin Dose 83.333 MLS/HR; Start at 12:00 Multivitamins/ Minerals (Theragran-M) 1 tab DAILY PO Last administered on 09/28 09:05; Admin Dose 1 TAB; Start 09/23/16 at 17:00 Patient Own Medication 1 ea DAILY PO Last administered on 09/28/16 09:08; Admin Dose 1 EA; Start 09/24/16 at 14:00 Lactobacillus Acidoph/Bulgaricus (Floranex) 1 tab BID PO Last administered on 09/28/16 09:06; Admin Dose 1 TAB; Start 09/23/16 at 21:00 Collagenase 1 applic 1 applic DAILY TOP Last administered on 09/28/16 09:07; Admin Dose 1 APPLIC; Start 09/24/16 at 09:00 Cefotaxime Sodium (Claforan 1gm/50 ml (Pmx)) 50 ml @ 100 mls/hr Q8 IVPB Last administered on 09/28/16at 15:54; Admin Dose 100 MLS/HR; Start 09/24/16 at 16: 00 WILLIAM GAY NP Sep 28, 2016 16:17
[2016-09-28] MEDS ORDERED: LIDOCAINE 1% (MDV) 20 ML INJ SC ONE (17:30)
[2016-09-28] MEDS: GABAPENTIN 100 MG CAP PO SCH (17:57)
[2016-09-28] MEDS: AMITRIPTYLINE 50 MG TAB PO SCH (18:53)
[2016-09-28 20:00] VITALS: BP 119/73; PULSE 98; RESP 19
[2016-09-28] MEDS: RANITIDINE 150 MG TAB PO SCH (20:41)
[2016-09-29] MEDS: VANCOMYCIN 1.25 GM in SOD CHLORIDE 0.9% 250 ML IVPB SCH ×2 (00:44→11:47)
[2016-09-29] MEDS: CEFOTAXIME 1 GM/50 ML (PMX) 50 ML IVPB SCH ×3 (05:30→21:20)
[2016-09-29 06:20] LABS: CREATININE 0.38 mg/dl (0.44-1.00)
[2016-09-29 08:16] VITALS: BP 99/64; RESP 18
[2016-09-29] MEDS: POTASSIUM CHLORIDE (SR) 10 MEQ TAB PO SCH ×2 (08:45→18:33)
[2016-09-29] MEDS: METHENAMINE 1 GM TAB PO SCH ×2 (08:45→21:20)
[2016-09-29] MEDS: RALOXIFENE 60 MG TAB PO SCH (08:46)
[2016-09-29] MEDS: ASCORBIC ACID 500 MG TAB PO SCH (08:46)
[2016-09-29] MEDS: ASPIRIN (EC) 81 MG TAB PO SCH (08:46)
[2016-09-29] MEDS: LACTOBACILLUS CHEW TAB PO SCH ×2 (08:46→21:20)
[2016-09-29] MEDS: SODIUM HYPOCHLORITE 1/40% 1L IRRIG IRR SCH (08:48)
[2016-09-29] MEDS: DILTIAZEM (CD) 240 MG CAP PO SCH (08:56)
[2016-09-29] MEDS: LUBIPROSTONE 24 MCG CAP PO SCH ×2 (08:56→21:19)
[2016-09-29] MEDS: VITAMIN C PO SCH (08:57)
[2016-09-29] MEDS: CRANBERRY PO SCH (08:57)
[2016-09-29] MEDS: COLLAGENASE 30 GM TUBE TOP SCH (09:00)
[2016-09-29] MEDS: MULTIVITAMINS/MINERALS TAB PO SCH (09:00)
[2016-09-29] MEDS: ENOXAPARIN 30 MG/0.3 ML SYG SC SCH (09:03)
[2016-09-29] MEDS: NS + KCL 20 MEQ 1,000 ML IV SCH ×2 (09:31→16:50)
--- NOTE | 2016-09-29 11:57 | PN ---
Date/Time of Note Date/Time of Note DATE: 09/29/16 TIME: 11:56 Assessment/Plan Lines/Catheters IV Catheter Type (from [facility]): Peripheral IV Chowdary in Place (from [facility]): No Assessment/Plan Chief Complaint/Hosp Course 1. Sepsis, probably secondary to infected right ischial/buttock abscess and decubitus ulceration plus urinary tract infection. s/p I&D and Debridement right buttock ulcer 09/20. Resolved. -Antibiotics. -Off load. -Local care. -Nutrition optimization. -Vitamin C. -Plastics outpt following -No colostomy at this time per patient 2. Multiple decubitus ulcerations. -Continue offloading, optimizing nutrition, vitamin C and local care. -No colostomy at this time per pt. 3. Muscular dystrophy. Continue medical management, offloading, and nutrition optimization. 4. Hypertension. Continue diet and medication control. 5. Anemia without evidence of acute blood loss. Continue close observation. 6. Significant hypokalemia, please replete. 7. Hypothyroidism. Continue replacing hormone. Thank you Problems: Subjective 24 Hr Interval Summary No f/c. No n/v. No cp/sob. No cough. No serrano/dizzy/visual or neuro changes. Bloated. Exam/Review of Systems Vital Signs Vitals Vital Signs Date Time Temp Pulse Resp B/P Pulse Ox O2 Delivery O2 Flow Rate FiO2 09/29/16 08:16 98.4 84 18 99/64 95 09/28/16 20:00 Room Air Intake and Output 09/28/16 09/28/16 09/29/16 15:00 23:00 07:00 Intake Total 440 ml 1010 ml 2240 ml Output Total 1100 ml 1050 ml Balance 440 ml -90 ml 1190 ml Exam Free Text/Dictation GENERAL: No acute distress, comfortable, pleasant. HEENT: Pupils equal, reactive. No scleral icterus. Mucous membranes are moist. NECK: Supple, no JVD. PULMONARY: Normal respiratory effort. No wheezing. CARDIAC: S1, S2 present. ABDOMEN: Soft, nontender, no rebound, no guarding. Bloated. Left lower quadrant urinary fistula. EXTREMITIES: No edema. SKIN: No rashes, no jaundice; however, left and right ischial and sacrococcygeal decubitus ulcerations. VASCULAR: Capillary refill is 2 seconds. NEUROLOGIC: Alert, oriented, moves upper extremities grossly; however, unable to move the lower extremities. Results Result Diagram: 09/26/16 0450 09/29/16 0510 CAIO FINK MD Sep 29, 2016 11:57
--- NOTE | 2016-09-29 14:34 | CONS ---
Date/Time of Note Date/Time of Note DATE: 09/29/16 TIME: 14:29 Assessment/Plan Assessment/Plan Chief Complaint/Hosp Course ID PROGRESS NOTE 24H INTERVAL SUMMARY * 71 yo F, A/A ?slightly confused, a bit irritable today -- w/many complaints today -- she wants to go back to SNF today and doesn't understand why she needs ABX tells me "doctor didn't tell me that", when I reminded her she and I talked at length last PM about PICC line and continued ABX for her wound she responds..."Well of course, I need ABX for that." She doesn't understand why she must wait for PICC line -- was hoping it would be placed first thing in the morning -- because she wants to go "home"; however a bit later she complains "I can't believe they would send me home in the rain." I encouraged her to be patient and just enjoy resting for now. * No fevers, VSS, NAD * Per Surgery note: Patient declined diverting colostomy at this time PHYSICAL EXAMINATION: GENERAL: 71 yo F, VSS, NAD HEENT: Unremarkable NECK: Supple, full Rom LUNGS: Chest rise symmetrical, without dyspnea on observation ABDOMEN: Soft EXTREMITIES: Warm SKIN: See photos, decubs, (+)Wound vac ID ASSESSMENT: 71 yo F w/PMHx Muscular Dystrophy and paraplegia admit with: 1. Sepsis, probably secondary to infected right ischial/buttock abscess and decubitus ulceration plus urinary tract infection = RESOLVED * BCx on admission (-) 2. Multiple unstageable decubitus ulcerations with Polymicrobial pathogens = (+ )Wound Vac * s/p I&D and Debridement ischial/right buttock ulcer 09/20. * Plastics surgery OP on case 3. Enterococcal UTI on admission 4. History of bladder surgery with urostomy. 5. Anemia 6. Hypothyroidism, on replacement 7. Hypertension. (+ )MRSA stool colonization Nares Screen ordered CURRENT ABX: Vanco IV + Cefotaxime ID RECOMMENDATIONS/PLAN: Continue current ABX -> Swab nares for MRSA pending Pending PICC -> Once PICC placed she may TNS to SNF with IV ABX course for 2-4 weeks Off loading, wound care tx continues . Problems: Consultation Date/Type/Reason Admit Date/Time Sep 19, 2016 at 12:20 Type of Consultation: ID Exam/Review of Systems Vital Signs Vitals Vital Signs Date Time Temp Pulse Resp B/P Pulse Ox O2 Delivery O2 Flow Rate FiO2 09/29/16 08:16 98.4 84 18 99/64 95 09/28/16 20:00 Room Air Intake and Output 09/28/16 09/28/16 09/29/16 14:59 22:59 06:59 Intake Total 490 ml 1010 ml 2240 ml Output Total 1100 ml 1050 ml Balance 490 ml -90 ml 1190 ml Results Result Diagram: 09/26/16 0450 09/29/16 0510 Results 24 hrs Laboratory Tests Test 09/29/16 05:10 Blood Urea Nitrogen 13 Creatinine 0.38 L Medications Medications Current Medications Ascorbic Acid (Vitamin C) 500 mg DAILY PO Last administered on 09/29/16 08:46; Admin Dose 500 MG; Start 09/20/16 at 09:00 Aspirin (Halfprin) 162 mg DAILY PO Last administered on 09/29/16 08:46; Admin Dose 162 MG; Start 09/20/16 at 09:00 Acetaminophen/ Aspirin/Caffeine (Excedrin) 1 tab Q6H PRN PO PAIN; Start at 16:30 Diltiazem HCl (Cardizem Cd) 240 mg DAILY PO Last administered on 09/28/16at 09: 06; Admin Dose 240 MG; Start 09/20/16 at 09:00 Ergocalciferol (Drisdol) 50,000 unit Q7D PO Last administered on 09/26/16at 17: 50; Admin Dose 50,000 UNIT; Start 09/19/16 at 16:30 Acetaminophen/ Hydrocodone Bitart ([place] (5/325)) 1 tab Q8 PRN PO SEVERE PAIN LEVEL 7-10 Last administered on 09/23/16at 18:46; Admin Dose 1 TAB; Start 09/19 at 16:30 Lubiprostone (Amitiza) 24 mcg BID PO Last administered on 09/29/16 08:56; Admin Dose 24 MCG; Start 09/19/16 at 21:00 Metoclopramide HCl (Reglan) 10 mg TID PRN PO NAUSEA; Start 09/19/16 at 16:30 Raloxifene HCl (Evista) 60 mg DAILY PO Last administered on 09/29/16 08:46; Admin Dose 60 MG; Start 09/20/16 at 09:00 Ranitidine HCl 150 mg 150 mg HS PO Last administered on 09/28/16at 20:41; Admin Dose 150 MG; Start 09/19/16 at 21:00 Potassium Chloride/Sodium Chloride (NS-KCl 20 Meq) 1,000 ml @ 60 mls/hr [id number] IV Last administered on 09/28/16at 11:36; Admin Dose 60 MLS/HR; Start 09/19/16 at 16:11 Ondansetron HCl (Zofran Inj) 4 mg Q6H PRN IV NAUSEA AND/OR VOMITING; Start at 16:30 Acetaminophen (Tylenol Tab) 650 mg Q6H PRN PO PAIN LEVEL 1-3 OR FEVER Last administered on 09/27/16 13:28; Admin Dose 650 MG; Start 09/19/16 at 16:30 Acetaminophen/ Hydrocodone Bitart ([place] (5/325)) 1 tab Q6H PRN PO MODERATE PAIN LEVEL 4-6; Start 09/19/16 at 16:30 Enoxaparin Sodium (Lovenox) 30 mg DAILY SC Last administered on 09/29/16 09:03 ; Admin Dose 30 MG; Start 09/20/16 at 09:00 Amitriptyline HCl (Elavil) 100 mg DAILY@18 PO Last administered on 09/28/16at 18:53; Admin Dose 100 MG; Start 09/21/16 at 18:00 Gabapentin (Neurontin) 100 mg DAILY@18 PO Last administered on 09/28/16at 17:57 ; Admin Dose 100 MG; Start 09/21/16 at 18:00 Methenamine (Hiprex) 1 gm BID@ PO Last administered on 09/29/16 08:45; Admin Dose 1 GM; Start 09/21/16 at 18:00 Potassium Chloride (Klor-Con 10) 20 meq BID@, PO Last administered on 08:45; Admin Dose 20 MEQ; Start 09/21/16 at 18:00 Sodium Hypochlorite 1 applic 1 applic DAILY IRR Last administered on 09/29/16 08:48; Admin Dose 1 APPLIC; Start 09/22/16 at 12:00 Vancomycin HCl/ Sodium Chloride (Vancocin/NS) 250 ml @ 83.333 mls/ hr Q12H IVPB Last administered on 09/29/16 11:47; Admin Dose 83.333 MLS/HR; Start at 12:00 Multivitamins/ Minerals (Theragran-M) 1 tab DAILY PO Last administered on 09/28 09:05; Admin Dose 1 TAB; Start 09/23/16 at 17:00 Patient Own Medication 1 ea DAILY PO Last administered on 09/29/16 08:57; Admin Dose 1 EA; Start 09/24/16 at 14:00 Lactobacillus Acidoph/Bulgaricus (Floranex) 1 tab BID PO Last administered on 08:46; Admin Dose 1 TAB; Start 09/23/16 at 21:00 Collagenase 1 applic 1 applic DAILY TOP Last administered on 09/28/16at 09:07; Admin Dose 1 APPLIC; Start 09/24/16 at 09:00 Cefotaxime Sodium (Claforan 1gm/50 ml (Pmx)) 50 ml @ 100 mls/hr Q8 IVPB Last administered on 09/29/16 05:30; Admin Dose 100 MLS/HR; Start 09/24/16 at 16:00 WILLIAM GAY NP Sep 29, 2016 14:34
--- NOTE | 2016-09-29 15:16 | PN ---
Date/Time of Note Date/Time of Note DATE: 09/29/16 TIME: 15:14 Assessment/Plan VTE Prophylaxis VTE Prophylaxis Intervention: other Lines/Catheters IV C[facility]ter Type (from [facility]): Peripheral IV Urinary Cath still in place: No Assessment/Plan Chief Complaint/Hosp Course IMPRESSION: 1. Multiple decubitus. 2. Sepsis. 3. Leukocytosis. 4. Hypokalemia.BETTER 5. History of hypertension. 6 multiple decubitus 7 MRSA,E COLI,CORNEB INF plan antibiotic wound care PER SURGERY AND ID pt refused snf picc line Problems: Subjective 24 Hr Interval Summary Respiratory: no complaints Cardiovascular: no complaints Gastrointestinal: no complaints Exam/Review of Systems Vital Signs Vitals Vital Signs Date Time Temp Pulse Resp B/P Pulse Ox O2 Delivery O2 Flow Rate FiO2 09/29/16 08:16 98.4 84 18 99/64 95 09/28/16 20:00 Room Air Intake and Output 09/28/16 09/28/16 09/29/16 15:00 23:00 07:00 Intake Total 440 ml 1010 ml 2240 ml Output Total 1100 ml 1050 ml Balance 440 ml -90 ml 1190 ml Exam Respiratory: clear to auscultation Cardiovascular: regular rate and rhythm Gastrointestinal: bowel sounds (+), soft Skin: other (decubitus) Results Result Diagram: 09/26/16 0450 09/29/16 0510 Results 24 hrs Laboratory Tests Test 09/29/16 05:10 Blood Urea Nitrogen 13 Creatinine 0.38 L Medications Medications Current Medications Ascorbic Acid (Vitamin C) 500 mg DAILY PO Last administered on 09/29/16 08:46; Admin Dose 500 MG; Start 09/20/16 at 09:00 Aspirin (Halfprin) 162 mg DAILY PO Last administered on 09/29/16 08:46; Admin Dose 162 MG; Start 09/20/16 at 09:00 Acetaminophen/ Aspirin/Caffeine (Excedrin) 1 tab Q6H PRN PO PAIN; Start at 16:30 Diltiazem HCl (Cardizem Cd) 240 mg DAILY PO Last administered on 09/28/16at 09: 06; Admin Dose 240 MG; Start 09/20/16 at 09:00 Ergocalciferol (Drisdol) 50,000 unit Q7D PO Last administered on 09/26/16at 17: 50; Admin Dose 50,000 UNIT; Start 09/19/16 at 16:30 Acetaminophen/ Hydrocodone Bitart ([place] (5/325)) 1 tab Q8 PRN PO SEVERE PAIN LEVEL 7-10 Last administered on 09/23/16 18:46; Admin Dose 1 TAB; Start 09/19 at 16:30 Lubiprostone (Amitiza) 24 mcg BID PO Last administered on 09/29/16 08:56; Admin Dose 24 MCG; Start 09/19/16 at 21:00 Metoclopramide HCl (Reglan) 10 mg TID PRN PO NAUSEA; Start 09/19/16 at 16:30 Raloxifene HCl (Evista) 60 mg DAILY PO Last administered on 09/29/16 08:46; Admin Dose 60 MG; Start 09/20/16 at 09:00 Ranitidine HCl 150 mg 150 mg HS PO Last administered on 09/28/16 20:41; Admin Dose 150 MG; Start 09/19/16 at 21:00 Potassium Chloride/Sodium Chloride (NS-KCl 20 Meq) 1,000 ml @ 60 mls/hr [id number] IV Last administered on 09/28/16 11:36; Admin Dose 60 MLS/HR; Start 09/19/16 at 16:11 Ondansetron HCl (Zofran Inj) 4 mg Q6H PRN IV NAUSEA AND/OR VOMITING; Start at 16:30 Acetaminophen (Tylenol Tab) 650 mg Q6H PRN PO PAIN LEVEL 1-3 OR FEVER Last administered on 09/27/16 13:28; Admin Dose 650 MG; Start 09/19/16 at 16:30 Acetaminophen/ Hydrocodone Bitart ([place] (5/325)) 1 tab Q6H PRN PO MODERATE PAIN LEVEL 4-6; Start 09/19/16 at 16:30 Enoxaparin Sodium (Lovenox) 30 mg DAILY SC Last administered on 09/29/16 09:03 ; Admin Dose 30 MG; Start 09/20/16 at 09:00 Amitriptyline HCl (Elavil) 100 mg DAILY@18 PO Last administered on 09/28/16at 18:53; Admin Dose 100 MG; Start 09/21/16 at 18:00 Gabapentin (Neurontin) 100 mg DAILY@18 PO Last administered on 09/28/16 17:57 ; Admin Dose 100 MG; Start 09/21/16 at 18:00 Methenamine (Hiprex) 1 gm BID@ PO Last administered on 09/29/16 08:45; Admin Dose 1 GM; Start 09/21/16 at 18:00 Potassium Chloride (Klor-Con 10) 20 meq BID@, PO Last administered on 08:45; Admin Dose 20 MEQ; Start 09/21/16 at 18:00 Sodium Hypochlorite 1 applic 1 applic DAILY IRR Last administered on 09/29/16 08:48; Admin Dose 1 APPLIC; Start 09/22/16 at 12:00 Vancomycin HCl/ Sodium Chloride (Vancocin/NS) 250 ml @ 83.333 mls/ hr Q12H IVPB Last administered on 09/29/16 11:47; Admin Dose 83.333 MLS/HR; Start at 12:00 Multivitamins/ Minerals (Theragran-M) 1 tab DAILY PO Last administered on 09/28 09:05; Admin Dose 1 TAB; Start 09/23/16 at 17:00 Patient Own Medication 1 ea DAILY PO Last administered on 09/29/16 08:57; Admin Dose 1 EA; Start 09/24/16 at 14:00 Lactobacillus Acidoph/Bulgaricus (Floranex) 1 tab BID PO Last administered on 08:46; Admin Dose 1 TAB; Start 09/23/16 at 21:00 Collagenase 1 applic 1 applic DAILY TOP Last administered on 09/28/16at 09:07; Admin Dose 1 APPLIC; Start 09/24/16 at 09:00 Cefotaxime Sodium (Claforan 1gm/50 ml (Pmx)) 50 ml @ 100 mls/hr Q8 IVPB Last administered on 09/29/16 05:30; Admin Dose 100 MLS/HR; Start 09/24/16 at 16:00 GIANNI FRAZIER MD Sep 29, 2016 15:16
[2016-09-29] MEDS ORDERED: LIDOCAINE 1% (MDV) 20 ML INJ SC ONE (15:30)
[2016-09-29] MEDS: GABAPENTIN 100 MG CAP PO SCH (18:30)
[2016-09-29 20:34] VITALS: BP 129/75; RESP 20
[2016-09-29] MEDS: RANITIDINE 150 MG TAB PO SCH (21:19)
[2016-09-29] MEDS: AMITRIPTYLINE 50 MG TAB PO SCH (21:19)
[2016-09-30] MEDS: VANCOMYCIN 1.25 GM in SOD CHLORIDE 0.9% 250 ML IVPB SCH ×3 (00:31→21:30)
[2016-09-30] MEDS: ACETAMINOPHEN 325 MG TAB PO PRN ×2 (00:31→16:18)
--- NOTE | 2016-09-30 00:38 | RADRPT ---
PROCEDURE: XR Chest. CLINICAL INDICATION: PICC line placement TECHNIQUE: Single frontal chest x-ray. COMPARISON: 09/19/2016 FINDINGS: There is a right PICC line with tip at the junction of the SVC and right atrium. Heart is enlarged. Aorta is mildly prominent para. There is redemonstrated elevated left hemidiaphragm with left basi lar atelectasis. There is no CHF.. There is no pleural effusion. There is no pneumothorax. The o sseous structures are unremarkable. IMPRESSION: Right PICC line with tip in the junction of SVC and right atrium. Otherwise no change. RPTAT: [facility] .Tacos Mejia MD, MD Date Time Electronically viewed and signed by .Tacos Mejia MD, on 09/30/2016 00:38 .K/
[2016-09-30] MEDS: NS + KCL 20 MEQ 1,000 ML IV SCH ×3 (02:11→18:51)
[2016-09-30] MEDS: CEFOTAXIME 1 GM/50 ML (PMX) 50 ML IVPB SCH (06:15)
[2016-09-30 07:59] VITALS: BP 114/71; RESP 18
[2016-09-30] MEDS: RALOXIFENE 60 MG TAB PO SCH ×2 (09:00→10:27)
[2016-09-30] MEDS: ENOXAPARIN 30 MG/0.3 ML SYG SC SCH (09:27)
[2016-09-30] MEDS: LACTOBACILLUS CHEW TAB PO SCH ×2 (09:28→21:30)
[2016-09-30] MEDS: LUBIPROSTONE 24 MCG CAP PO SCH ×2 (09:28→21:30)
[2016-09-30] MEDS: MULTIVITAMINS/MINERALS TAB PO SCH (09:28)
[2016-09-30] MEDS: POTASSIUM CHLORIDE (SR) 10 MEQ TAB PO SCH ×2 (09:28→18:21)
[2016-09-30] MEDS: METHENAMINE 1 GM TAB PO SCH ×2 (09:28→18:20)
[2016-09-30] MEDS: ASCORBIC ACID 500 MG TAB PO SCH (09:29)
[2016-09-30] MEDS: ASPIRIN (EC) 81 MG TAB PO SCH (09:29)
[2016-09-30] MEDS: DILTIAZEM (CD) 240 MG CAP PO SCH (09:30)
[2016-09-30] MEDS: VITAMIN C PO SCH (09:31)
[2016-09-30] MEDS: CRANBERRY PO SCH (09:31)
[2016-09-30] MEDS: COLLAGENASE 30 GM TUBE TOP SCH (09:31)
[2016-09-30] MEDS: SODIUM HYPOCHLORITE 1/40% 1L IRRIG IRR SCH (09:32)
--- NOTE | 2016-09-30 11:53 | RADRPT ---
PROCEDURE: ULTRASOUND GUIDED PICC LINE PLACEMENT CLINICAL INDICATION: Antibiotics TECHNIQUE: Multiple real-time images were acquired of the patient's arm utilizing a high resolutio n transducer anticipation of placing a PICC line. COMPARISON: None FINDINGS: Patent upper extremity deep vein. IMPRESSION: Ultrasound guidance for placement of a PICC line. RPTAT: AA Physician Yasir Date Time Electronically viewed and signed by Giovany Martínez Physician on 09/30/2016 11:52 RA/
--- NOTE | 2016-09-30 13:59 | PN ---
Date/Time of Note Date/Time of Note DATE: 09/30/16 TIME: 13:58 Assessment/Plan VTE Prophylaxis VTE Prophylaxis Intervention: other Lines/Catheters IV Catheter Type (from Nrs): Peripheral IV Urinary Cath still in place: No Assessment/Plan Chief Complaint/Hosp Course IMPRESSION: 1. Multiple decubitus. 2. Sepsis. 3. Leukocytosis. 4. Hypokalemia.BETTER 5. History of hypertension. 6 multiple decubitus 7 MRSA,E COLI,CORNEB INF plan antibiotic wound care PER SURGERY AND ID pt refused snf picc line arrange for home [facility] Problems: Subjective 24 Hr Interval Summary Cardiovascular: no complaints Gastrointestinal: no complaints Genitourinary: no complaints Exam/Review of Systems Vital Signs Vitals Vital Signs Date Time Temp Pulse Resp B/P Pulse Ox O2 Delivery O2 Flow Rate FiO2 09/30/16 07:59 98.5 95 18 114/71 97 09/28/16 20:00 Room Air Intake and Output 09/29/16 09/29/16 09/30/16 15:00 23:00 07:00 Intake Total 1780 ml 420 ml Output Total 875 ml 650 ml Balance 905 ml -230 ml Exam Neck: supple Respiratory: clear to auscultation Cardiovascular: regular rate and rhythm Gastrointestinal: soft Genitourinary - Female: nl adnexae Extremities: normal pulses Results Result Diagram: 09/26/16 0450 09/29/16 0510 Medications Medications Current Medications Ascorbic Acid (Vitamin C) 500 mg DAILY PO Last administered on 09/30/16 09:29; Admin Dose 500 MG; Start 09/20/16 at 09:00 Aspirin (Halfprin) 162 mg DAILY PO Last administered on 09/30/16 09:29; Admin Dose 162 MG; Start 09/20/16 at 09:00 Acetaminophen/ Aspirin/Caffeine (Excedrin) 1 tab Q6H PRN PO PAIN; Start at 16:30 Diltiazem HCl (Cardizem Cd) 240 mg DAILY PO Last administered on 09/30/16 09:30 ; Admin Dose 240 MG; Start 09/20/16 at 09:00 Ergocalciferol (Drisdol) 50,000 unit Q7D PO Last administered on 09/26/16at 17: 50; Admin Dose 50,000 UNIT; Start 09/19/16 at 16:30 Acetaminophen/ Hydrocodone Bitart ([place] (5/325)) 1 tab Q8 PRN PO SEVERE PAIN LEVEL 7-10 Last administered on 09/23/16at 18:46; Admin Dose 1 TAB; Start 09/19 at 16:30 Lubiprostone (Amitiza) 24 mcg BID PO Last administered on 09/30/16 09:28; Admin Dose 24 MCG; Start 09/19/16 at 21:00 Metoclopramide HCl (Reglan) 10 mg TID PRN PO NAUSEA; Start 09/19/16 at 16:30 Raloxifene HCl (Evista) 60 mg DAILY PO Last administered on 09/30/16 10:27; Admin Dose 60 MG; Start 09/20/16 at 09:00 Ranitidine HCl 150 mg 150 mg HS PO Last administered on 09/29/16 21:19; Admin Dose 150 MG; Start 09/19/16 at 21:00 Potassium Chloride/Sodium Chloride (NS-KCl 20 Meq) 1,000 ml @ 60 mls/hr [id number] IV Last administered on 09/30/16 07:51; Admin Dose 60 MLS/HR; Start at 16:11 Ondansetron HCl (Zofran Inj) 4 mg Q6H PRN IV NAUSEA AND/OR VOMITING; Start at 16:30 Acetaminophen (Tylenol Tab) 650 mg Q6H PRN PO PAIN LEVEL 1-3 OR FEVER Last administered on 09/30/16 00:31; Admin Dose 650 MG; Start 09/19/16 at 16:30 Acetaminophen/ Hydrocodone Bitart ([place] (5/325)) 1 tab Q6H PRN PO MODERATE PAIN LEVEL 4-6; Start 09/19/16 at 16:30 Enoxaparin Sodium (Lovenox) 30 mg DAILY SC Last administered on 09/30/16 09:27 ; Admin Dose 30 MG; Start 09/20/16 at 09:00 Amitriptyline HCl (Elavil) 100 mg DAILY@18 PO Last administered on 09/29/16 21: 19; Admin Dose 100 MG; Start 09/21/16 at 18:00 Gabapentin (Neurontin) 100 mg DAILY@18 PO Last administered on 09/29/16 18:30; Admin Dose 100 MG; Start 09/21/16 at 18:00 Methenamine (Hiprex) 1 gm BID@09,18 PO Last administered on 09/30/16 09:28; Admin Dose 1 GM; Start 09/21/16 at 18:00 Potassium Chloride (Klor-Con 10) 20 meq BID@09,18 PO Last administered on 09:28; Admin Dose 20 MEQ; Start 09/21/16 at 18:00 Sodium Hypochlorite 1 applic 1 applic DAILY IRR Last administered on 09/30/16 09:32; Admin Dose 1 APPLIC; Start 09/22/16 at 12:00 Vancomycin HCl/ Sodium Chloride (Vancocin/NS) 250 ml @ 83.333 mls/ hr Q12H IVPB Last administered on 09/30/16 12:31; Admin Dose 83.333 MLS/HR; Start at 12:00 Multivitamins/ Minerals (Theragran-M) 1 tab DAILY PO Last administered on 09:28; Admin Dose 1 TAB; Start 09/23/16 at 17:00 Patient Own Medication 1 ea DAILY PO Last administered on 09/30/16 09:31; Admin Dose 1 EA; Start 09/24/16 at 14:00 Lactobacillus Acidoph/Bulgaricus (Floranex) 1 tab BID PO Last administered on 09:28; Admin Dose 1 TAB; Start 09/23/16 at 21:00 Collagenase 1 applic 1 applic DAILY TOP Last administered on 09/30/16 09:31; Admin Dose 1 APPLIC; Start 09/24/16 at 09:00 Cefotaxime Sodium (Claforan 1gm/50 ml (Pmx)) 50 ml @ 100 mls/hr Q8 IVPB Last administered on 09/30/16 06:15; Admin Dose 100 MLS/HR; Start 09/24/16 at 16:00 GIANNI FRAZIER MD Sep 30, 2016 13:59
--- NOTE | 2016-09-30 14:06 | CONS ---
Date/Time of Note Date/Time of Note DATE: 09/30/16 TIME: 13:55 Assessment/Plan Assessment/Plan Chief Complaint/Hosp Course ID PROGRESS NOTE 24H INTERVAL SUMMARY * DC planning -- PICC placed yesterday -- ready to DC w/Vanco IV continued dose per outside pharmacy, and Ceftriaxone PHYSICAL EXAMINATION: GENERAL: 71 yo F, VSS, NAD HEENT: Unremarkable NECK: Supple, full Rom LUNGS: Chest rise symmetrical, without dyspnea on observation ABDOMEN: Soft EXTREMITIES: Warm SKIN: See photos, decubs, (+)Wound vac ID ASSESSMENT: 71 yo F w/PMHx Muscular Dystrophy and paraplegia admit with: 1. Sepsis, probably secondary to infected right ischial/buttock abscess and decubitus ulceration plus urinary tract infection = RESOLVED * BCx on admission (-) 2. Multiple unstageable decubitus ulcerations with Polymicrobial pathogens = (+ )Wound Vac * s/p I&D and Debridement ischial/right buttock ulcer 09/20. * Plastics surgery OP on case 3. Enterococcal UTI on admission 4. History of bladder surgery with urostomy. 5. Anemia 6. Hypothyroidism, on replacement 7. Hypertension. (+ )MRSA stool colonization Nares Screen ordered CURRENT ABX: Vanco IV + Cefotaxime ID RECOMMENDATIONS/PLAN: Continue current ABX -> Swab nares for MRSA pending Off loading, wound care tx continues New PICC -> May TNS to SNF OR with IV ABX course for 14 more days FINAL RECOMMENDATIONS ON OP ABX => ABX dose times d/w [facility] Pharmacist and adjusted, thank you 1. Ceftriaxone 1 GM IVPB Q 24H - Last day 10/14/16 2. Vanco IV 1.25gm IVPB Q12 H with continued dose per outside pharmacy - Last Day 10/14/16 3. Vanco Trough prior to 10/01/16 AM dose, serum creatinine called to , Outside Pharmacist . Problems: Consultation Date/Type/Reason Admit Date/Time Sep 19, 2016 at 12:20 Type of Consultation: ID Exam/Review of Systems Vital Signs Vitals Vital Signs Date Time Temp Pulse Resp B/P Pulse Ox O2 Delivery O2 Flow Rate FiO2 09/30/16 07:59 98.5 95 18 114/71 97 09/28/16 20:00 Room Air Intake and Output 1/109/29/16 09/30/16 15:00 23:00 07:00 Intake Total 1780 ml 420 ml Output Total 875 ml 650 ml Balance 905 ml -230 ml Results Result Diagram: 09/26/16 0450 09/29/16 0510 Medications Medications Current Medications Ascorbic Acid (Vitamin C) 500 mg DAILY PO Last administered on 09/30/16 09:29; Admin Dose 500 MG; Start 09/20/16 at 09:00 Aspirin (Halfprin) 162 mg DAILY PO Last administered on 09/30/16 09:29; Admin Dose 162 MG; Start 09/20/16 at 09:00 Acetaminophen/ Aspirin/Caffeine (Excedrin) 1 tab Q6H PRN PO PAIN; Start at 16:30 Diltiazem HCl (Cardizem Cd) 240 mg DAILY PO Last administered on 09/30/16 09:30 ; Admin Dose 240 MG; Start 09/20/16 at 09:00 Ergocalciferol (Drisdol) 50,000 unit Q7D PO Last administered on 09/26/16at 17: 50; Admin Dose 50,000 UNIT; Start 09/19/16 at 16:30 Acetaminophen/ Hydrocodone Bitart ([place] (5/325)) 1 tab Q8 PRN PO SEVERE PAIN LEVEL 7-10 Last administered on 09/23/16at 18:46; Admin Dose 1 TAB; Start 09/19 at 16:30 Lubiprostone (Amitiza) 24 mcg BID PO Last administered on 09/30/16 09:28; Admin Dose 24 MCG; Start 09/19/16 at 21:00 Metoclopramide HCl (Reglan) 10 mg TID PRN PO NAUSEA; Start 09/19/16 at 16:30 Raloxifene HCl (Evista) 60 mg DAILY PO Last administered on 09/30/16 10:27; Admin Dose 60 MG; Start 09/20/16 at 09:00 Ranitidine HCl 150 mg 150 mg HS PO Last administered on 09/29/16 21:19; Admin Dose 150 MG; Start 09/19/16 at 21:00 Potassium Chloride/Sodium Chloride (NS-KCl 20 Meq) 1,000 ml @ 60 mls/hr [id number] IV Last administered on 09/30/16 07:51; Admin Dose 60 MLS/HR; Start at 16:11 Ondansetron HCl (Zofran Inj) 4 mg Q6H PRN IV NAUSEA AND/OR VOMITING; Start at 16:30 Acetaminophen (Tylenol Tab) 650 mg Q6H PRN PO PAIN LEVEL 1-3 OR FEVER Last administered on 09/30/16 00:31; Admin Dose 650 MG; Start 09/19/16 at 16:30 Acetaminophen/ Hydrocodone Bitart ([place] (5/325)) 1 tab Q6H PRN PO MODERATE PAIN LEVEL 4-6; Start 09/19/16 at 16:30 Enoxaparin Sodium (Lovenox) 30 mg DAILY SC Last administered on 09/30/16 09:27 ; Admin Dose 30 MG; Start 09/20/16 at 09:00 Amitriptyline HCl (Elavil) 100 mg DAILY@18 PO Last administered on 09/29/16 21: 19; Admin Dose 100 MG; Start 09/21/16 at 18:00 Gabapentin (Neurontin) 100 mg DAILY@18 PO Last administered on 09/29/16 18:30; Admin Dose 100 MG; Start 09/21/16 at 18:00 Methenamine (Hiprex) 1 gm BID@,18 PO Last administered on 09/30/16 09:28; Admin Dose 1 GM; Start 09/21/16 at 18:00 Potassium Chloride (Klor-Con 10) 20 meq BID@09,18 PO Last administered on 09:28; Admin Dose 20 MEQ; Start 09/21/16 at 18:00 Sodium Hypochlorite 1 applic 1 applic DAILY IRR Last administered on 09/30/16 09:32; Admin Dose 1 APPLIC; Start 09/22/16 at 12:00 Vancomycin HCl/ Sodium Chloride (Vancocin/NS) 250 ml @ 83.333 mls/ hr Q12H IVPB Last administered on 09/30/16 12:31; Admin Dose 83.333 MLS/HR; Start at 12:00 Multivitamins/ Minerals (Theragran-M) 1 tab DAILY PO Last administered on 09:28; Admin Dose 1 TAB; Start 09/23/16 at 17:00 Patient Own Medication 1 ea DAILY PO Last administered on 09/30/16 09:31; Admin Dose 1 EA; Start 09/24/16 at 14:00 Lactobacillus Acidoph/Bulgaricus (Floranex) 1 tab BID PO Last administered on 09:28; Admin Dose 1 TAB; Start 09/23/16 at 21:00 Collagenase 1 applic 1 applic DAILY TOP Last administered on 09/30/16 09:31; Admin Dose 1 APPLIC; Start 09/24/16 at 09:00 Cefotaxime Sodium (Claforan 1gm/50 ml (Pmx)) 50 ml @ 100 mls/hr Q8 IVPB Last administered on 09/30/16 06:15; Admin Dose 100 MLS/HR; Start 09/24/16 at 16:00 WILLIAM GAY NP Sep 30, 2016 14:05
[2016-09-30] MEDS: CEFTRIAXONE 1 GM/50 ML (PMX) 50 ML IVPB SCH (15:22)
[2016-09-30] MEDS: AMITRIPTYLINE 50 MG TAB PO SCH (18:20)
[2016-09-30] MEDS: GABAPENTIN 100 MG CAP PO SCH (18:21)
[2016-09-30 20:16] VITALS: BP 112/68; RESP 18
[2016-09-30] MEDS: RANITIDINE 150 MG TAB PO SCH (21:30)
--- NOTE | 2016-09-30 23:57 | PN ---
Date/Time of Note Date/Time of Note DATE: 09/30/16 TIME: 23:56 Assessment/Plan Lines/Catheters IV Catheter Type (from [facility]): PICC Line Chowdary in Place (from [facility]): No Assessment/Plan Chief Complaint/Hosp Course 1. Sepsis, probably secondary to infected right ischial/buttock abscess and decubitus ulceration plus urinary tract infection. s/p I&D and Debridement right buttock ulcer 09/20. Resolved. -Antibiotics. -Off load. -Local care. -Nutrition optimization. -Vitamin C. -Plastics outpt following -No colostomy at this time per patient 2. Multiple decubitus ulcerations. -Continue offloading, optimizing nutrition, vitamin C and local care. -No colostomy at this time per pt. 3. Muscular dystrophy. Continue medical management, offloading, and nutrition optimization. 4. Hypertension. Continue diet and medication control. 5. Anemia without evidence of acute blood loss. Continue close observation. 6. Significant hypokalemia, please replete. 7. Hypothyroidism. Continue replacing hormone. Thank you Problems: Subjective 24 Hr Interval Summary No f/c. No n/v. No cp/sob. No cough. No serrano/dizzy/visual or neuro changes. min Bloated. Exam/Review of Systems Vital Signs Vitals Vital Signs Date Time Temp Pulse Resp B/P Pulse Ox O2 Delivery O2 Flow Rate FiO2 09/30/16 20:16 98.3 87 18 112/68 98 09/28/16 20:00 Room Air Intake and Output 09/29/16 09/29/16 09/30/16 15:00 23:00 07:00 Intake Total 1780 ml 420 ml Output Total 875 ml 650 ml Balance 905 ml -230 ml Exam Free Text/Dictation GENERAL: No acute distress, comfortable, pleasant. HEENT: Pupils equal, reactive. No scleral icterus. Mucous membranes are moist. NECK: Supple, no JVD. PULMONARY: Normal respiratory effort. No wheezing. CARDIAC: S1, S2 present. ABDOMEN: Soft, nontender, no rebound, no guarding. Bloated. Left lower quadrant urinary fistula. EXTREMITIES: No edema. SKIN: No rashes, no jaundice; however, left and right ischial and sacrococcygeal decubitus ulcerations. VASCULAR: Capillary refill is 2 seconds. NEUROLOGIC: Alert, oriented, moves upper extremities grossly; however, unable to move the lower extremities. Results Result Diagram: 09/26/16 0450 09/29/16 0510 CAIO FINK MD Sep 30, 2016 23:57
[2016-10-01] MEDS: NS + KCL 20 MEQ 1,000 ML IV SCH ×2 (08:09→11:31)
[2016-10-01] MEDS: DILTIAZEM (CD) 240 MG CAP PO SCH (09:00)
[2016-10-01] MEDS: VANCOMYCIN 1.25 GM in SOD CHLORIDE 0.9% 250 ML IVPB SCH (10:30)
[2016-10-01] MEDS: LACTOBACILLUS CHEW TAB PO SCH (10:31)
[2016-10-01] MEDS: METHENAMINE 1 GM TAB PO SCH (10:31)
[2016-10-01] MEDS: LUBIPROSTONE 24 MCG CAP PO SCH (10:32)
[2016-10-01] MEDS: CRANBERRY PO SCH (10:33)
[2016-10-01] MEDS: VITAMIN C PO SCH (10:33)
[2016-10-01] MEDS: ASCORBIC ACID 500 MG TAB PO SCH (10:33)
[2016-10-01] MEDS: MULTIVITAMINS/MINERALS TAB PO SCH (10:33)
[2016-10-01] MEDS: ASPIRIN (EC) 81 MG TAB PO SCH (10:33)
[2016-10-01] MEDS: SODIUM HYPOCHLORITE 1/40% 1L IRRIG IRR SCH (10:34)
[2016-10-01] MEDS: COLLAGENASE 30 GM TUBE TOP SCH (10:35)
[2016-10-01] MEDS: ENOXAPARIN 30 MG/0.3 ML SYG SC SCH (10:38)
[2016-10-01] MEDS: POTASSIUM CHLORIDE (SR) 10 MEQ TAB PO SCH (10:42)
--- NOTE | 2016-10-01 11:51 | CONS ---
Date/Time of Note Date/Time of Note DATE: 10/01/16 TIME: 11:48 Consult Date/Type/Reason Admit Date/Time Sep 19, 2016 at 12:20 Type of Consultation: ID Subjective alert, no fevers, nad Objective Vital Signs Date Time Temp Pulse Resp B/P Pulse Ox O2 Delivery O2 Flow Rate FiO2 09/30/16 20:16 98.3 87 18 112/68 98 09/28/16 20:00 Room Air Intake and Output 09/30/16 09/30/16 10/01/16 15:00 23:00 07:00 Intake Total 150 ml 1300 ml 1030 ml Output Total 620 ml 2400 ml Balance 150 ml 680 ml -1370 ml Results/Medications Result Diagram: 09/29/16 0510 Medications Current Medications Ascorbic Acid (Vitamin C) 500 mg DAILY PO Last administered on 10/01/16 10:33; Admin Dose 500 MG; Start 09/20/16 at 09:00 Aspirin (Halfprin) 162 mg DAILY PO Last administered on 10/01/16 10:33; Admin Dose 162 MG; Start 09/20/16 at 09:00 Acetaminophen/ Aspirin/Caffeine (Excedrin) 1 tab Q6H PRN PO PAIN; Start at 16:30 Diltiazem HCl (Cardizem Cd) 240 mg DAILY PO Last administered on 09/30/16 09:30 ; Admin Dose 240 MG; Start 09/20/16 at 09:00 Ergocalciferol (Drisdol) 50,000 unit Q7D PO Last administered on 09/26/16at 17: 50; Admin Dose 50,000 UNIT; Start 09/19/16 at 16:30 Acetaminophen/ Hydrocodone Bitart ([place] (5/325)) 1 tab Q8 PRN PO SEVERE PAIN LEVEL 7-10 Last administered on 09/23/16at 18:46; Admin Dose 1 TAB; Start 09/19 at 16:30 Lubiprostone (Amitiza) 24 mcg BID PO Last administered on 10/01/16 10:32; Admin Dose 24 MCG; Start 09/19/16 at 21:00 Metoclopramide HCl (Reglan) 10 mg TID PRN PO NAUSEA Last administered on 03:44; Admin Dose 10 MG; Start 09/19/16 at 16:30 Raloxifene HCl (Evista) 60 mg DAILY PO Last administered on 09/30/16 10:27; Admin Dose 60 MG; Start 09/20/16 at 09:00 Ranitidine HCl 150 mg 150 mg HS PO Last administered on 09/30/16 21:30; Admin Dose 150 MG; Start 09/19/16 at 21:00 Potassium Chloride/Sodium Chloride (NS-KCl 20 Meq) 1,000 ml @ 60 mls/hr [id number] IV Last administered on 10/01/16 08:09; Admin Dose 60 MLS/HR; Start at 16:11 Ondansetron HCl (Zofran Inj) 4 mg Q6H PRN IV NAUSEA AND/OR VOMITING; Start at 16:30 Acetaminophen (Tylenol Tab) 650 mg Q6H PRN PO PAIN LEVEL 1-3 OR FEVER Last administered on 09/30/16 16:18; Admin Dose 650 MG; Start 09/19/16 at 16:30 Acetaminophen/ Hydrocodone Bitart ([place] (5/325)) 1 tab Q6H PRN PO MODERATE PAIN LEVEL 4-6; Start 09/19/16 at 16:30 Enoxaparin Sodium (Lovenox) 30 mg DAILY SC Last administered on 10/01/16 10:38 ; Admin Dose 30 MG; Start 09/20/16 at 09:00 Amitriptyline HCl (Elavil) 100 mg DAILY@18 PO Last administered on 09/30/16 18: 20; Admin Dose 100 MG; Start 09/21/16 at 18:00 Gabapentin (Neurontin) 100 mg DAILY@18 PO Last administered on 09/30/16 18:21; Admin Dose 100 MG; Start 09/21/16 at 18:00 Methenamine (Hiprex) 1 gm BID@18 PO Last administered on 10/01/16 10:31; Admin Dose 1 GM; Start 09/21/16 at 18:00 Potassium Chloride (Klor-Con 10) 20 meq BID@,18 PO Last administered on 10:42; Admin Dose 20 MEQ; Start 09/21/16 at 18:00 Sodium Hypochlorite (Dakin'S (Dilute 1/40%)) 1 applic DAILY IRR Last administered on 10/01/16 10:34; Admin Dose 1 APPLIC; Start 09/22/16 at 12:00 Multivitamins/ Minerals (Theragran-M) 1 tab DAILY PO Last administered on 10:33; Admin Dose 1 TAB; Start 09/23/16 at 17:00 Patient Own Medication 1 ea DAILY PO Last administered on 10/01/16 10:33; Admin Dose 1 EA; Start 09/24/16 at 14:00 Lactobacillus Acidoph/Bulgaricus (Floranex) 1 tab BID PO Last administered on 10:31; Admin Dose 1 TAB; Start 09/23/16 at 21:00 Collagenase 1 applic 1 applic DAILY TOP Last administered on 10/01/16 10:35; Admin Dose 1 APPLIC; Start 09/24/16 at 09:00 Ceftriaxone Sodium 50 ml @ 100 mls/hr Q24H IVPB Last administered on 09/30/16 15:22; Admin Dose 100 MLS/HR; Start 09/30/16 at 14:30; Stop 10/14/16 at 23:00 Vancomycin HCl/ Sodium Chloride (Vancocin/NS) 250 ml @ 83.333 mls/ hr Q12 IVPB Last administered on 10/01/16 10:30; Admin Dose 83.333 MLS/HR; Start 09/30/16 at 21:00 Assessment/Plan Chief Complaint/Hosp Course Micro: wound cx + MRES/Enterococcus/E coli/Corynebact ANTIMICROBIALS: 1. Vancomycin. 2. Cefotaxime PHYSICAL EXAMINATION: GENERAL: Fragile, elderly woman who is lying comfortably in bed. HEENT: Head atraumatic, normocephalic. Sclerae anicteric. Buccal mucosa dry. NECK: Supple, trachea midline. CHEST: Rise symmetrical. Breath sounds diminished to bases. HEART: S1, S2. ABDOMEN: Soft, bowel tones present. EXTREMITIES: Without cyanosis. SKIN: With multiple unstageable pressure ulcers on her lower back and sacrum. ASSESSMENT: 1. Systemic inflammatory response syndrome with leukocytosis present on admission secondary to #2 and #3. 2. Unstageable infected wounds, status post lower back wound debridement with wound VAC application. 3. Urinary tract infection==> Enterococcus. 4. History of bladder surgery with urostomy. 5. Paraplegia. PLAN: Remains stable, completing abx, continue local wound care per surgery and nursing staff, abx till Oct 14 staff Problems: PAOLO HEAD NP Oct 01, 2016 11:51
[2016-10-01] MEDS ORDERED: LACTOBACILLUS CHEW TAB PO SCH (13:00)
[2016-10-01] MEDS: RALOXIFENE 60 MG TAB PO SCH (14:12)
[2016-10-01] MEDS: CEFTRIAXONE 1 GM/50 ML (PMX) 50 ML IVPB SCH (14:12)
[2016-10-01 14:31] LABS: BASOPHIL # 0.1 10^3/ul (0.0-0.1); BASOPHILS % 0.6 % (0.0-2.0); EOSINOPHILS # 0.2 10^3/ul (0.0-0.5); EOSINOPHILS % 1.5 % (0.0-7.0); HEMOGLOBIN 10.3 g/dl (12.0-16.0); LYMPHOCYTES % 16.5 % (15.0-51.0); MEAN CORPUSCULAR HEMOGLOBIN 28.6 pg (29.0-33.0); MEAN CORPUSCULAR HGB CONC 32.3 g/dl (32.0-37.0); MEAN CORPUSCULAR VOLUME 88.5 fl (82.0-101.0); MEAN PLATELET VOLUME 6.4 fl (7.4-10.4); MONOCYTE # 0.6 10^3/ul (0.3-0.9); MONOCYTES % 5.1 % (0.0-11.0); NEUTROPHIL # 9.2 10^3/ul (1.6-7.5); NEUTROPHILS % 76.3 % (39.0-77.0); RED BLOOD COUNT 3.62 10^6/ul (4.20-5.40); RED CELL DISTRIBUTION WIDTH 16.4 % (11.5-14.5); UNCORRECTED WBC 12.1 10^3/ul (4.8-10.8); WHITE BLOOD COUNT 12.1 10^3/ul (4.8-10.8)
[2016-10-01 14:33] LABS: CONDITION 1; LH ANALYZER COMMENTS 1
[2016-10-01 14:34] LABS: PLATELET COUNT 637 10^3/UL (140-440)
--- NOTE | 2016-10-01 14:35 | PDOCDIS ---
Discharge Instructions CONDITION Patient Condition: Stable HOME CARE INSTRUCTIONS: Special Diet: 2GM NA ACTIVITY: Activity Restrictions: Slowly Increase Activity FOLLOW UP/APPOINTMENTS Appointments f/u dr frazier 2 to [address] shannon chacon [address] [facility] [address]days [address] payne 2 wks GIANNI FRAZIER MD Oct 01, 2016 14:35
[2016-10-01] MEDS ORDERED: ACID1TAB14 PO (14:39)
[2016-10-01 15:03] LABS: CREATININE 0.39 mg/dl (0.44-1.00)
--- NOTE | 2016-10-01 16:38 | QN ---
Documentation Comment [id number] GIANNI FRAZIER MD Oct 01, 2016 16:38
--- NOTE | 2016-10-01 18:21 | DS ---
DATE OF ADMISSION: 09/19/2016 DATE OF DISCHARGE: 10/01/2016 HOSPITAL COURSE: The patient with history of muscular dystrophy. The patient has lower extremity w eakness, chronic, presented with multiple decubitus. Was seen by Dr. Putnam in consultation. Plas tic surgery, Dr. Orozco, was called. The patient was also followed by Dr. Luciano in consultation. T he patient is on vancomycin and cefotaxime for unstageable infected wounds. The patient also had en terococcus UTI, history of bladder surgery with urostomy. The patient was doing okay on antibiotics . The patient was offered correction facility. The patient refused. The patient was cleared by Dr. Luciano to be discharged home. The patient was also offered diverting colostomy. The patient refused. She wants to think about this. The patient understood the consequences of not going to [facility] for 24-hour care as compared to be going home. The patient has a social issue and she w ants to go home and have home health nurse to follow her at the time of discharge. DISCHARGE DIAGNOSES: Include: 1. The patient has methicillin-resistant Staphylococcus aureus ____. 2. Possible colonization with Escherichia coli, methicillin resistant Staphylococcus aureus, coryne bacterium species, and enterococcus species in the wound. 3. Enterococcus urinary tract infection. 4. Other diagnoses include patient has anemia and leukocytosis. 5. Hypertension. 6. Muscular dystrophy. 7. Electrolyte imbalance. 8. Chronic pain. 9. History of urostomy. DISCHARGE MEDICATIONS: 1. The patient to continue vancomycin at home. 2. Prescription for Bittinger was given ____. FOLLOWUP: The patient to follow with Dr. Jose Maria Putnam, Dr. Orozco, and Dr. Luciano as an outpatient. DIET: As tolerated. Low salt diet. DISPOSITION: The patient is stable at the time of discharge. Dictated By: GIANNI FRAZIER MD BS/NTS Conf#: [id number] DID#: [id number]
--- NOTE | 2016-10-01 21:09 | PN ---
Date/Time of Note Date/Time of Note DATE: 10/01/16 TIME: 21:08 Assessment/Plan Lines/Catheters IV Catheter Type (from [facility]): PICC Line Chowdary in Place (from [facility]): No Assessment/Plan Chief Complaint/Hosp Course 1. Sepsis, probably secondary to infected right ischial/buttock abscess and decubitus ulceration plus urinary tract infection. s/p I&D and Debridement right buttock ulcer 09/20. Resolved. -Antibiotics. -Off load. -Local care. -Nutrition optimization. -Vitamin C. -Plastics outpt following -No colostomy at this time per patient 2. Multiple decubitus ulcerations. -Continue offloading, optimizing nutrition, vitamin C and local care. -No colostomy at this time per pt. 3. Muscular dystrophy. Continue medical management, offloading, and nutrition optimization. 4. Hypertension. Continue diet and medication control. 5. Anemia without evidence of acute blood loss. Continue close observation. 6. Significant hypokalemia, please replete. 7. Hypothyroidism. Continue replacing hormone. Thank you late entry Problems: Subjective 24 Hr Interval Summary No f/c. No n/v. No cp/sob. No cough. No serrano/dizzy/visual or neuro changes. min Bloated. WBC, mild Exam/Review of Systems Vital Signs Vitals Vital Signs Date Time Temp Pulse Resp B/P Pulse Ox O2 Delivery O2 Flow Rate FiO2 09/30/16 20:16 98.3 87 18 112/68 98 09/28/16 20:00 Room Air Intake and Output 09/30/16 09/30/16 10/01/16 15:00 23:00 07:00 Intake Total 150 ml 1300 ml 1030 ml Output Total 620 ml 2400 ml Balance 150 ml 680 ml -1370 ml Exam Free Text/Dictation GENERAL: No acute distress, comfortable, pleasant. HEENT: Pupils equal, reactive. No scleral icterus. Mucous membranes are moist. NECK: Supple, no JVD. PULMONARY: Normal respiratory effort. No wheezing. CARDIAC: S1, S2 present. ABDOMEN: Soft, nontender, no rebound, no guarding. Bloated. Left lower quadrant urinary fistula. EXTREMITIES: No edema. SKIN: No rashes, no jaundice; however, left and right ischial and sacrococcygeal decubitus ulcerations. VASCULAR: Capillary refill is 2 seconds. NEUROLOGIC: Alert, oriented, moves upper extremities grossly; however, unable to move the lower extremities. Results Result Diagram: 10/01/16 1420 10/01/16 1420 CAIO FINK MD Oct 01, 2016 21:09
== END 2016-10-01 15:50 | disposition home health service (06) | DRG 853 ==
LOC: E/R 11:33 → MS2 12:20
PROVIDERS: ADMIT Internal Medicine Nephrology; ATTEND Internal Medicine Nephrology
PROC: 0JB90ZZ Excision of Buttock Subcutaneous Tissue and Fascia, Open Approach (ICD-10-PCS; principal; 2016-09-20)
PROC: 02HV33Z Insertion of Infusion Device into Superior Vena Cava, Percutaneous Approach (ICD-10-PCS; 2016-09-29)
DX: A41.9 Sepsis, unspecified organism (principal); L89.154 Pressure ulcer of sacral region, stage 4; R64 Cachexia; L89.320 Pressure ulcer of left buttock, unstageable; L89.310 Pressure ulcer of right buttock, unstageable; G71.0 Muscular dystrophy; G82.20 Paraplegia, unspecified; N39.0 Urinary tract infection, site not specified; E87.6 Hypokalemia; Z68.22 Body mass index [BMI] 22.0-22.9, adult; I10 Essential (primary) hypertension; B95.2 Enterococcus as the cause of diseases classified elsewhere; D64.9 Anemia, unspecified; E03.9 Hypothyroidism, unspecified; B95.62 Methicillin resistant Staphylococcus aureus infection as the cause of diseases classified elsewhere; B96.20 Unspecified Escherichia coli [E. coli] as the cause of diseases classified elsewhere; B96.89 Other specified bacterial agents as the cause of diseases classified elsewhere
CPT/HCPCS: 36415; 36569; 71010; 76937; 80048; 80053; 80202; 81001; 81003; 82565; 83605; 84484; 84520; 85025; 85610; 85730; 87040; 87045; 87070; 87075; 87081; 87086; 90686; 93005; 96374; A4310; J0696; J0698; J1650; J2543; J3370; J3480; J7030; J7050

== ENCOUNTER 2018-01-03 21:25 | Inpatient (IN) | END 2018-01-13 20:05 | disposition home health service (06) | DRG 871 ==

== ENCOUNTER 2018-01-18 19:20 | Inpatient (IN) | END 2018-02-05 18:35 | disposition home or self-care (01) | DRG 853 ==